=== PATIENT | female | born 1930 | race Caucasian/White ===

== ENCOUNTER 2016-12-13 06:25 | Day surgery (SDC) | payer MEDICARE ==
[~2016-12-13 06:25] MED LIST: Buffered Lidocaine 0.9% SYRIN* 5 ML/SYR SYRINGE INTRADERM ONE; Buffered Lidocaine 0.9% SYRIN* 5 ML/SYR SYRINGE ONE; Famotidine IV* 10 MG/ML 2 ML (20 mg) IV ONE; Famotidine IV* 10 MG/ML 2 ML (20 mg) ONE; Morphine INJ* 2 MG/ML 1 ML SYRINGE IV PRN; fentaNYL* 50 MCG/ML 2 ML VIAL (100 MCG VIAL) IV PRN; oxyCODONE TAB* 5 MG TAB PO PRN
[2016-12-13] MEDS ORDERED: BSS OPTH.SOL* BTL ONE (07:20)
[2016-12-13] MEDS ORDERED: Bacitracin OINTMENT* 1 TUBE ONE (07:20)
[2016-12-13] MEDS ORDERED: ceFAZolin 2 GM PREMIX(*) 2 GM/50 ML BAG IVPB ONE (07:20)
[2016-12-13] MEDS ORDERED: Lidocain 1% EPI 1:100,000 * 30 ML MDV ONE (07:22)
[2016-12-13] MEDS ORDERED: KETAMINE HCL* 50 MG/ML 10 ML VIAL ONE (07:35)
[2016-12-13] MEDS ORDERED: Midazolam* 1 MG/ML 2 ML VIAL (2 MG) ONE (07:35)
[2016-12-13] MEDS ORDERED: fentaNYL* 50 MCG/ML 2 ML VIAL (100 MCG VIAL) ONE (07:35)
[2016-12-13] MEDS ORDERED: Mineral Oil Sterile, TOPICAL* 25 ML BTL ONE (07:39)
[2016-12-13] MEDS ORDERED: Methylene Blue 0.5 %* 50 MG/10 ML AMP IV ONE (08:00)
[2016-12-13] MEDS ORDERED: Metoprolol Tartrate IV* 1 MG/ML 5 ML VIAL ONE (08:09)
[2016-12-13] MEDS ORDERED: Lidocaine 2% PF * 5 ML VIAL ONE (08:09)
[2016-12-13] MEDS ORDERED: Propofol* 10 MG/ML 20 ML BTL IV PUSH ONE (08:09)
[2016-12-13 09:00] VITALS: BP 151/70
== END 2016-12-13 09:23 | disposition home or self-care (01) ==
LOC: OREAST 06:25
PROVIDERS: ATTEND Plastic Surgery
DX: D03.39 Melanoma in situ of other parts of face (principal); I25.10 Atherosclerotic heart disease of native coronary artery without angina pectoris; I25.2 Old myocardial infarction; N18.3 Chronic kidney disease, stage 3 (moderate); E11.9 Type 2 diabetes mellitus without complications; Z79.4 Long term (current) use of insulin; Z85.038 Personal history of other malignant neoplasm of large intestine
CPT/HCPCS: 88305; A9270-GY; J0690; J2250; J2704; J3010

== ENCOUNTER 2017-06-08 14:13 | Emergency (ER) | payer MEDICARE ==
[2017-06-08 15:16] LABS: Hematocrit 37 % (35-47); Hemoglobin 12.4 g/dl (12.0-16.0); Mean Corpuscular HGB Conc 34 g/dl (31-36); Mean Corpuscular Hemoglobin 30 pg (27-31); Mean Corpuscular Volume 90 fL (80-97); Mean Platelet Volume 8 um3 (7.4-10.4); Red Cell Distribution Width 13 % (10.5-15)
--- NOTE | 2017-06-08 15:25 | RAD ---
Indication: Dizziness. Single frontal view of the chest performed at 1509 hours was reviewed. Comparison is made with previous exam dated June 21, 2007. No mediastinal shift is noted. Heart is of normal size and configuration. Lung young appear clear. IMPRESSION: NO ACTIVE CARDIOPULMONARY DISEASE IS NOTED.
[2017-06-08 15:27] LABS: Albumin 3.7 g/dL (3.2-5.2); BUN/Creatinine Ratio 18.9 (8-20); Calcium 9.1 mg/dL (8.6-10.3); EGFR African American 49.1 (>60); EGFR Non-African American 38.2 (>60); Globulin 2.9 g/dL (2-4); Potassium 4.2 mmol/L (3.5-5.0); Total Bilirubin 0.4 mg/dL (0.2-1.0); Total Protein 6.6 g/dL (6.4-8.9)
[2017-06-08] MEDS ORDERED: Meclizine TAB* 12.5 MG PO ONE ×2 (16:32→18:36)
[2017-06-08] MEDS ORDERED: Metoprolol Tartrate TAB* 25 MG PO ONE (16:32)
[2017-06-08 19:15] VITALS: BP 167/66
[2017-06-08 19:37] LABS: Urine Bacteria Absent (Absent); Urine Bilirubin Negative (Negative); Urine Glucose 3+(>=500 mg/dL) (Negative); Urine Nitrite Negative (Negative)
--- NOTE | 2017-06-09 10:15 | ED ---
Hever Mujica Stephanie, scribed for Noe Mancera MD on 06/08/17 at 1645 . Dizziness - HPI Summary HPI Summary: The pt is an 86 y/o F BIBA to the ED with c/o dizziness and HTN symptoms that began at 13:30 today. Pt bent over to pick something up off the floor and got dizzy and nauseated. Dizziness is characterized as head spinning and room spinning. Denies GRIMALDO, recent cold, sinus problems, CP, coughing, sob, recent falls, or hearing problems. - History Of Current Complaint Chief Complaint: EDHypertension Stated Complaint: HTN,DIZZY Time Seen by Provider: 06/08/17 14:42 Hx Obtained From: Patient Onset/Duration: Suddenly Character: Head Spinning, Room Spinning, Dizzy Aggravating Factor(s): Supine To Erect, Change In Head Position Alleviating Factor(s): Rest Associated Signs And Symptoms: Positive: Other: - Negative: GRIMALDO, cold, sinus problems, CP, coughing, sob, recent falls, or hearing problems. - Allergies/Home Medications Allergies/Adverse Reactions: Allergies Allergy/AdvReac Type Severity Reaction Status Date / Time Benzalkonium Chloride Allergy Dizziness Verified 12/13/16 06:48 [From Combigan] Brimonidine [From Combigan] Allergy Dizziness Verified 12/13/16 06:48 Codeine Allergy GI Upset Verified 12/13/16 06:48 Timolol [From Combigan] Allergy Dizziness Verified 12/13/16 06:48 PMH/Surg Hx/FS Hx/Imm Hx Endocrine/Hematology History: Reports: Hx Diabetes - Type I, insulin dependent, diagnosed late , early 1999 Cardiovascular History: Reports: Hx Coronary Artery Disease - listed in select visits, Hx Hypertension - controlled with medication, Other Cardiovascular Problems/Disorders - 2006 ?, bypass surgery History: Reports: Other Problems/Disorders - 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 bypass surgery 2007 approx. Hx Anesthesia Reactions: No Infectious Disease History: No Infectious Disease History: Denies: Traveled Outside the [place] in Last 30 Days - Family History Known Family History: Positive: Unknown - Pt denies knowledge of family history. - Social History Occupation: Retired Lives: With Family - Alcohol Use: Rare Alcohol Amount: only a toast 1-2 x a year, occas. a beer in the summer Hx Substance Use: No Substance Use Type: Reports: None Hx Tobacco Use: No Smoking Status (MU): Never Smoked Tobacco Review of Systems Positive: Other - Negative: recent cold, sinus problems, recent fall. Negative : Fever, Chills Negative: Erythema Positive: Other - Negative: hearing condition. Negative: Sore Throat Negative: Chest Pain Negative: Shortness Of Breath, Cough Positive: Nausea. Negative: Abdominal Pain, Vomiting Negative: dysuria, hematuria Negative: Myalgia, Edema Negative: Rash Neurological: Other - dizziness All Other Systems Reviewed And Are Negative: Yes Physical Exam - Summary Physical Exam Summary: Constitutional: Well-developed, Well-nourished, Alert. (-) Distressed Skin: Warm, Dry HENT: Normocephalic; Atraumatic, Bilateral cerumen impaction Eyes: Conjunctiva normal Neck: Musculoskeletal ROM normal neck. (-) JVD, (-) Stridor, (-) Tracheal deviation Cardio: Rhythm regular, rate normal, Heart sounds normal; Intact distal pulses; The pedal pulses are 2+ and symmetric. Radial pulses are 2+ and symmetric. (-) Murmur Pulmonary/Chest wall: Effort normal. (-) Respiratory distress, (-) Wheezes, (-) Rales Abd: Soft. (-) Tenderness, (-) Distension, (-) Guarding, (-) Rebound Musculoskeletal: (-) Edema Lymph: (-) Cervical adenopathy Neuro: Alert, Oriented x3, Strength normal, Cranial nerves II-XII are grossly intact. (-) Dysmetria, (-) Nystagmus, (-) Ataxia by finger to nose testing, (-) Sensory deficit. inducible vertigo with sitting up from the supine position. [place] Hallpike test is negative. Psych: Mood and affect Normal Triage Information Reviewed: Yes Vital Signs On Initial Exam: Initial Vitals Temp Pulse Resp BP Pulse Ox 98.0 F 60 16 158/72 98 06/08/17 14:15 06/08/17 14:15 06/08/17 14:15 06/08/17 14:15 06/08/17 14:15 Vital Signs Reviewed: Yes - Andrew Coma Scale Coma Scale Total: 15 Diagnostics - Vital Signs Vital Signs Temp Pulse Resp BP Pulse Ox 06/08/17 16:00 57 157/59 92 06/08/17 15:42 57 169/58 99 06/08/17 14:15 98.0 F 60 16 158/72 98 - Laboratory Lab Results: Lab Results 06/08/17 06/08/17 06/08/17 Range/Units 15:00 15:00 15:00 WBC 6.0 (3.5-10.8) 10^3/ul RBC 4.10 (4.0-5.4) 10^6/ul Hgb 12.4 (12.0-16.0) g/dl Hct 37 (35-47) % MCV 90 (80-97) fL MCH 30 (27-31) pg MCHC 34 (31-36) g/dl RDW 13 (10.5-15) % Plt Count 214 (150-450) 10^3/ul MPV 8 (7.4-10.4) um3 Neut % (Auto) 73.0 (38-83) % Lymph % (Auto) 15.5 L (25-47) % Tama % (Auto) 7.1 (1-9) % Eos % (Auto) 2.9 (0-6) % Baso % (Auto) 1.5 (0-2) % Absolute Neuts (auto) 4.3 (1.5-7.7) 10^3/ul Absolute Lymphs (auto) 0.9 L (1.0-4.8) 10^3/ul Absolute Monos (auto) 0.4 (0-0.8) 10^3/ul Absolute Eos (auto) 0.2 (0-0.6) 10^3/ul Absolute Basos (auto) 0.1 (0-0.2) 10^3/ul Absolute Nucleated RBC 0 10^3/ul Nucleated RBC % 0 Sodium 134 (133-145) mmol/L Potassium 4.2 (3.5-5.0) mmol/L Chloride 99 L (101-111) mmol/L Carbon Dioxide 30 (22-32) mmol/L Anion Gap 5 (2-11) mmol/L BUN 25 H (6-24) mg/dL Creatinine 1.32 H (0.51-0.95) mg/dL Est GFR ( Amer) 49.1 (>60) Est GFR (Non-Af Amer) 38.2 (>60) BUN/Creatinine Ratio 18.9 (8-20) Glucose 282 H (70-100) mg/dL Lactic Acid 1.2 (0.5-2.0) mmol/L Calcium 9.1 (8.6-10.3) mg/dL Total Bilirubin 0.40 (0.2-1.0) mg/dL AST 14 (13-39) U/L ALT 11 (7-52) U/L Alkaline Phosphatase 59 (34-104) U/L Troponin I 0.00 (<0.04) ng/mL Total Protein 6.6 (6.4-8.9) g/dL Albumin 3.7 (3.2-5.2) g/dL Globulin 2.9 (2-4) g/dL Albumin/Globulin Ratio 1.3 (1-3) Result Diagrams: 06/08/17 15:00 06/08/17 15:00 Lab Statement: Any lab studies that have been ordered have been reviewed, and results considered in the medical decision making process. - Radiology CXR Xray Interpretation: No Acute Changes Radiology Interpretation Completed By: Radiologist - NO ACTIVE CARDIOPULMONARY DISEASE IS NOTED. - EKG 14:49 EKG Interpretation: 59 BPM. Anterolateral TWI. No stemi. Dizzy Course/Dx - Course Course Of Treatment: Do not expect central vertigo upon inspection. Follow up with ENT doctor in 2-3 days. - Diagnoses Provider Diagnoses: Positional vertigo, Cerumen impaction Discharge - Discharge Plan Condition: Fair Disposition: HOME Discharge Disposition Comment: Follow up with ENT doctor in 2-3 days. Prescriptions: Meclizine TAB* [Antivert 12.5 TAB*] 25 mg PO TID PRN #12 tab PRN Reason: Vertigo Referrals: Niru Bermudez MD [Primary Care Provider] - The documentation as recorded by the Hever swenson Stephanie accurately reflects the service I personally performed and the decisions made by Calderon abel Jerry, MD.
== END 2017-06-08 19:15 | disposition home or self-care (01) ==
LOC: ED 14:13
DX: H81.10 Benign paroxysmal vertigo, unspecified ear (principal); H61.23 Impacted cerumen, bilateral; Z88.5 Allergy status to narcotic agent; Z88.8 Allergy status to other drugs, medicaments and biological substances
CPT/HCPCS: 36415; 71010; 80053; 81003; 81015; 83605; 84484; 85025; 87086; 93005; 99283; A9270-GY

== ENCOUNTER 2018-02-17 10:25 | Emergency (ER) | payer MEDICARE ==
--- NOTE | 2018-02-17 10:52 | ED ---
Dizziness - HPI Summary HPI Summary: The pt is an 87 y/o female presenting to [facility] accompanied by a family member c/ o of dizziness since today. She notes elevated blood glucose (160 at the highest ) but denies nausea, ringing in the ears, CP, SOB, vision changes. The dizziness is aggravated by fast movement. The pt has a Mhx of DM and vision problems in the L eye. She has similar sx about two weeks ago. - History Of Current Complaint Chief Complaint: EDGeneral Stated Complaint: WEAKNESS Time Seen by Provider: 02/17/18 10:40 Hx Obtained From: Patient, Family/Health Lead Onset/Duration: Still Present Timing: Constant Aggravating Factor(s): Other - Fast movement Alleviating Factor(s): Rest Associated Signs And Symptoms: Positive: Negative - ringing in the ears. Negative: Nausea, Chest Pain, SOB, Visual Changes - Allergies/Home Medications Allergies/Adverse Reactions: Allergies Allergy/AdvReac Type Severity Reaction Status Date / Time brimonidine [From Combigan] Allergy Dizziness Verified 02/17/18 11:25 codeine Allergy GI Upset Verified 02/17/18 11:25 timolol [From Combigan] Allergy Dizziness Verified 02/17/18 11:25 PMH/Surg Hx/FS Hx/Imm Hx Previously Healthy: No Endocrine/Hematology History: Reports: Hx Diabetes - Type I, insulin dependent, diagnosed late , early 1999 Cardiovascular History: Reports: Hx Coronary Artery Disease - listed in select visits, Hx Hypertension - controlled with medication, Other Cardiovascular Problems/Disorders - 2007 ?, bypass surgery History: Reports: Other Problems/Disorders - 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 Musculoskeletal History: Denies: Hx Osteoporosis Sensory History: Reports: Hx Cataracts - had surgery bi-lat, unsure of dates Denies: Hx Contacts or Glasses - limited visibility, Hx Hearing Aid Opthamlomology History: Reports: Hx Cataracts - had surgery bi-lat, unsure of dates Denies: Hx Contacts or Glasses - limited visibility - Cancer History Cancer Type, Location and Year: Colon CA1989 - Surgical History Surgery Procedure, Year, and Place: colon CA, late . bypass surgery 2006 approx. Hx Anesthesia Reactions: No Infectious Disease History: No Infectious Disease History: Denies: Traveled Outside the [place] in Last 30 Days - Family History Known Family History: Positive: Unknown - Pt denies knowledge of family history. - Social History Occupation: Retired Lives: With Family Alcohol Use: Rare Alcohol Amount: only a toast 1-2 x a year, occas. a beer in the summer Hx Substance Use: No Substance Use Type: Reports: None Hx Tobacco Use: No Smoking Status (MU): Never Smoked Tobacco Review of Systems Constitutional: Other - Positive: Dizziness Eyes: Negative - Vision changes ENT: Negative - Tinnitus Cardiovascular: Other - Positive: elevated blood glucose (measured at home) Negative: Chest Pain Negative: Shortness Of Breath All Other Systems Reviewed And Are Negative: Yes Physical Exam - Summary Physical Exam Summary: Appearance: The patient is well-nourished in no acute distress and in no acute pain. Skin: The skin is warm and dry and skin color reflects adequate perfusion. HEENT: The head is normocephalic and atraumatic. No nystagmus. The pupils are equal and reactive. The conjunctivae are clear and without drainage. Nares are patent and without drainage. Mouth reveals moist mucous membranes and the throat is without erythema and exudate. The external ears are intact. The ear canals are patent and without drainage. The tympanic membranes are intact. Neck: The neck is supple with full range of motion and non-tender. There are no carotid bruits. There is no neck vein distension. Respiratory: Chest is non-tender. Lungs are clear to auscultation and breath sounds are symmetrical and equal. Cardiovascular: Heart is bradycardic . There is no murmur or rub auscultated. There is no peripheral edema and pulses are symmetrical and equal. Abdomen: The abdomen is soft and non-tender. There are normal bowel sounds heard in all four quadrants and there is no organomegaly palpated. Musculoskeletal: There is no back tenderness noted. Extremities are non-tender with full range of motion. There is good capillary refill. There is no peripheral edema or calf tenderness elicited. Neurological: No focal neuriological fundings. Patient is alert and oriented to person, place and time. The patient has symmetrical motor strength in all four extremities. Cranial nerves are grossly intact. Deep tendon reflexes are symmetrical and equal in all four extremities. Psychiatric: The patient has an appropriate affect and does not exhibit any anxiety or depression. GCS: 15 Triage Information Reviewed: Yes Vital Signs On Initial Exam: Initial Vitals Pulse Pulse Ox 53 95 02/17/18 10:33 02/17/18 10:33 Vital Signs Reviewed: Yes Diagnostics - Vital Signs Vital Signs Temp Pulse Resp BP Pulse Ox 02/17/18 10:36 97.6 F 51 12 206/74 93 02/17/18 10:35 51 192/95 94 02/17/18 10:33 53 95 - Laboratory Result Diagrams: 02/17/18 11:26 02/17/18 11:26 Lab Statement: Any lab studies that have been ordered have been reviewed, and results considered in the medical decision making process. - Radiology CXR Radiology Interpretation Completed By: Radiologist - IMPRESSION: Crowding of the right basilar vessels with no definite active cardiopulmonary disease is noted. The ED physician reviewed this radiology report. - CT Brain CT CT Interpretation Completed By: Radiologist - IMPRESSION: Chronic ischemic White matter change. No intracranial mass or hemorrhage is noted. Postoperative change is noted in both globes. The ED physician reviewed this radiology report. - EKG 11:04 Cardiac Rate: Bradycardia - 49 bpm EKG Interpretation: Unchanged form Dizzy Course/Dx - Course Course Of Treatment: Ms. Jaime presented to the emergency department with a concern for dizziness and high blood pressure. She describes the dizziness as an off-balance sensation when she moves quickly. She has presented previously with these kind of symptoms. Her exam here was unremarkable and labs and CT scan were within normal limits for her. I recommended she follow closely with her PCP as she had improved completely here and was ambulating about without difficulty. - Diagnoses Provider Diagnoses: Dizziness Discharge - Sign-Out/Discharge Documenting (check all that apply): Patient Departure - DC - Discharge Plan Condition: Stable Disposition: HOME Patient Education Materials: Chronic Hypertension (ED) Referrals: Niru Bermudez MD [Primary Care Provider] - 3 Days Additional Instructions: Return to ED for any new or worsening symptoms Follow up with your PCP this week. - Billing Disposition and Condition Condition: STABLE Disposition: Home - Attestation Statements Document Initiated by Scribe: Yes Documenting Scribe: Michelle Naqvi Provider For Whom Scribe is Documenting (Include Credential): Dr. Kelvin Stiles MD Scribe Attestation: Michelle Mujica scribed for Dr. Kelvin Stiles MD on 02/18/18 at 1305. Scribe Documentation Reviewed: Yes Provider Attestation: The documentation as recorded by the scribe, Michelle Naqvi accurately reflects the service I personally performed and the decisions made by me, Dr. Kelvin Stiles MD
[2018-02-17 11:36] LABS: ABS Basophils 0.1 10^3/ul (0-0.2); ABS Eosinophils 0.1 10^3/ul (0-0.6); ABS Monocytes 0.4 10^3/ul (0-0.8); ABS Neutrophils 5.5 10^3/ul (1.5-7.7); ABS Nucleated RBC 0 10^3/ul; Eosinophil % 1.2 % (0-6); Hematocrit 39 % (35-47); Hemoglobin 12.8 g/dl (12.0-16.0); Lymphocyte % 14.5 % (25-47); Mean Corpuscular HGB Conc 33 g/dl (31-36); Mean Corpuscular Hemoglobin 29 pg (27-31); Mean Corpuscular Volume 89 fL (80-97); Mean Platelet Volume 8.4 um3 (7.4-10.4); Nucleated Red Blood Cells % 0; Platelet Count 223 10^3/ul (150-450); Red Blood Count 4.36 10^6/ul (4.00-5.40); Red Cell Distribution Width 13 % (10.5-15); White Blood Count 7.1 10^3/ul (3.5-10.8)
--- NOTE | 2018-02-17 11:36 | RAD ---
Indication: Dizziness. CT of the brain performed without IV contrast. Ventricular structures are midline. Central and cortical atrophy is noted. There is periventricular lucency consistent with chronic ischemic White matter change. Mucosal thickening of the sphenoid sinuses is noted. Prosthesis is noted in both globes. Mastoid air cells and paranasal sinuses are otherwise unremarkable. IMPRESSION: Chronic ischemic White matter change. No intracranial mass or hemorrhage is noted. Postoperative change is noted in both globes.
--- NOTE | 2018-02-17 11:38 | RAD ---
Indication: Dizziness. 2 views of the chest are reviewed and compared to previous exam dated June 08, 2017. No mediastinal shift is noted. The heart is at the upper limits of normal in size. Lung young demonstrate some crowding of the markings in the right lung base. This is similar to that seen on previous exam. Patient is status post transsternal thoracotomy. IMPRESSION: Crowding of the right basilar vessels with no definite active cardiopulmonary disease is noted.
[2018-02-17 11:44] LABS: INR 0.87 (0.77-1.02)
[2018-02-17 11:53] LABS: EGFR Non-African American 35.3 (>60)
[2018-02-17 12:51] LABS: Urine Appearance Clear; Urine Blood Negative (Negative); Urine Color Yellow; Urine Ketones Negative (Negative); Urine Protein 1+(30 mg/dL) (Negative); Urine Red Blood Cell Absent (Absent); Urine Specific Gravity 1.011 (1.010-1.030); Urine Urobilinogen Negative (Negative); Urine White Blood Cell Trace(0-5/hpf) (Absent)
[2018-02-17 14:14] VITALS: BP 171/73
== END 2018-02-17 14:18 | disposition home or self-care (01) ==
LOC: ED 10:25
DX: R42 Dizziness and giddiness (principal); I10 Essential (primary) hypertension; E10.9 Type 1 diabetes mellitus without complications; Z79.4 Long term (current) use of insulin; I25.10 Atherosclerotic heart disease of native coronary artery without angina pectoris
CPT/HCPCS: 36415; 70450; 71046; 80053; 81003; 81015; 83605; 83735; 84443; 84484; 85025; 85610; 87086; 93005; 99284

== ENCOUNTER 2018-05-10 12:35 | Inpatient (IN) | payer MEDICARE ==
[2018-05-10] MEDS ORDERED: NS 0.9% 1000 ML* 1,000 ML IV ONE (12:36)
--- NOTE | 2018-05-10 12:38 | ED ---
Neurological HPI - HPI Summary HPI Summary: Level 5 caveat: Unable to obtain complete HPI due to Dementia. The pt is an 87 y/o female brought in by her son to [facility] c/o weakness. Her son last saw her 2 hours TELEPHONE RECORDER and she was fine. Later, her other son found her unresponsive in bed and called the ambulance. Her mobile home lot utility worker confirmed that the pt took her insulin, breakfast and required medications normally today morning.EMS found the pt diaphoretic and unresponsive with slurred speech. Her BG was 45 mg/dL en route for which she was given D10 to mild improvement. Her heart rate was bradycardic ranging between the high 40s and low 50s. PMHx: Dementia, chronic IDDM and cardiac problems (10 years ago). Home Medications Medication Instructions Recorded Confirmed Type Aspirin 81 mg CHEW TAB* [Aspirin 81 mg PO QAM 09/09/12 02/17/18 History Low Dose TAB*] Insulin Isophane (Human) [Humulin 16 units SUBCUT BID 09/09/12 02/17/18 History N] Insulin Regular (Human) [Humulin R] 10 units SUBCUT BID 09/09/12 02/17/18 History Metoprolol Tartrate TAB* 25 mg PO BID 09/09/12 02/17/18 History [Lopressor TAB*] Multiple Vitamins W/ Minerals 1 tab PO QAM 09/09/12 02/17/18 History [Centrum Silver] Potassium Chloride [Klor-Con 8] 8 meq PO QAM 09/09/12 02/17/18 History Simvastatin TAB(NF) [Zocor 20 MG 40 mg PO QPM 09/09/12 02/17/18 History (NF)] Triamterene/HCTZ 37.5-25 MG* 1 cap PO QAM 09/09/12 02/17/18 History [Dyazide CAP*] Lisinopril TAB* [Prinivil TAB*] 10 mg PO QAM 12/07/16 02/17/18 History - History of Current Complaint Stated Complaint: CODE DUKE Time Seen by Provider: 05/10/18 12:36 Last Known Well Date: 05/10/2018- 2 hours TELEPHONE RECORDER Hx Obtained From: Patient, Family/Pattern Room Attendant - Son, EMS Hx From Patient Unobtainable Due To: Dementia Onset/Duration: Sudden Onset, Still Present Associated Signs and Symptoms: Positive: Confusion, Weakness - Allergy/Home Medications Allergies/Adverse Reactions: Allergies Allergy/AdvReac Type Severity Reaction Status Date / Time brimonidine [From Combigan] Allergy Dizziness Verified 02/17/18 11:25 codeine Allergy GI Upset Verified 02/17/18 11:25 hydralazine Allergy Difficulty Verified 05/10/18 15:04 Breathing timolol [From Combigan] Allergy Dizziness Verified 02/17/18 11:25 Home Medications: Home Medications Insulin NPH(*) 10 units SUBCUT BEDTIME 05/10/18 [History Confirmed 05/10/18] Insulin Regular, Human 5 units SUBCUT BEDTIME 05/10/18 [History Confirmed ] PMH/Surg Hx/FS Hx/Imm Hx Previously Healthy: No - Level 5 caveat: Unable to obtain complete PMHx due to Dementia. 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 bypass surgery 2006 approx. Hx Anesthesia Reactions: No Infectious Disease History: No - Family History Known Family History: Positive: Unknown - Pt denies knowledge of family history. - Social History Occupation: Retired Lives: With Family Alcohol Use: Rare Alcohol Amount: only a toast 1-2 x a year, occas. a beer in the summer Hx Substance Use: No Substance Use Type: Reports: None Hx Tobacco Use: No Smoking Status (MU): Never Smoked Tobacco Review of Systems - ROS Summary Review of Systems Summary: Level 5 caveat: Unable to obtain complete ROS due to Dementia. Constitutional: Other - Positive: Hypoglycemia, Unresponsiveness, Slurred speech Positive: Skin Diaphoresis Cardiovascular: Other - Positive: Bradycardia Positive: Weakness All Other Systems Reviewed And Are Negative: No Physical Exam - Summary Physical Exam Summary: Level 5 caveat: Unabe to obtain complete PE due to dementia Appearance: Well appearing, no pain distress Skin: warm, dry mucous membranes, reflects adequate perfusion Head/face: normal Eyes: EOMI, ENT: normal Neck: supple, non-tender Respiratory: CTA, breath sounds present Cardiovascular: bradycardic, pulses symmetrical Abdomen: non-tender, soft Bowel: present Musculoskeletal: normal, strength/ROM intact Neuro: normal, sensory motor intact, alert and confused GCS:14 Triage Information Reviewed: Yes Vital Signs On Initial Exam: Temp Pulse Resp BP Pulse Ox 95.8 F 37 16 179/67 94 05/10/18 12:59 05/10/18 12:59 05/10/18 12:59 05/10/18 12:59 05/10/18 12:59 Completion Of Physical Exam Limited Due To: Dementia Diagnostics - Laboratory Result Diagrams: 05/10/18 12:52 05/10/18 12:52 Lab Statement: Any lab studies that have been ordered have been reviewed, and results considered in the medical decision making process. - Radiology CXR Radiology Interpretation Completed By: Radiologist - IMPRESSION: DISCOID ATELECTASIS IN THE LEFT MIDLUNG FIELD. PATIENT IS STATUS POST CHANGED STERNAL THORACOTOMY. ED physician reviewed this radiology report. - CT Brain CT CT Interpretation Completed By: Radiologist - IMPRESSION: No intracranial mass or hemorrhage is noted. No other high or low density lesions are identified. ED physician reviewed this radiology report. - EKG 12:52 Cardiac Rate: Bradycardia - 38 bpm NIH Scale - NIH Scale Level of Consciousness: Alert/Keenly Responsive Ask Patient the Month and His/Her Age: Both Correct Ask Pt to Open/Close Eyes and Eligibility Consultant/Release Non-Paretic Hand: Both Correctly Best Gaze (Only Horizontal Eye Movement): Normal Visual Field Testing: No Visual Loss Facial Paresis-Pt to Smile & Close Eyes or Grimace Symmetry: Normal/Symmetrical Motor Function - Right Arm: No Drift-Holds 10 Seconds Motor Function - Left Arm: No Drift-Holds 10 Seconds Motor Function - Right Leg: No Drift-Holds 10 Seconds Motor Function - Left Leg: No Drift-Holds 10 Seconds Limb Ataxia-Must be out of Proportion to Weakness Present: Absent Sensory (Use Pinprick to Test Arms/Legs/Trunk/Face): Normal Best Language (Describe Picture, Name Items): No Aphasia Dysarthria (Read Several Words): Normal Extinction and Inattention: No Abnormality Total Score: 0 Course/Dx - Course Course Of Treatment: An 87 year-old demented F is brought in by ambulance to the ED with a CC of weakness. She was last seen at baseline 2 hours TELEPHONE RECORDER. EMS found the pt diaphoretic and unresponsive with slurred speech. Her BG was 45 mg/ dL en route for which she was given D10 to mild improvement. Her heart rate was bradycardic ranging between the high 40s and low 50s. A physical exam revealed alertness, confusion, bradycardia and dry mucous membranes. A brain CT is unremarkable. A CXR reveals discoid atelectasis in the L mid lung field. Patient is post changed s/p sternal thoracotomy. An EKG reveals bradycardia. In the ED course, pt was given D5w 1000ml IV, Dextrose 50% 25 gm IV and N.s 0.9% 1000 ml IV which improved the symptoms. I discussed the care of the patient with Dr. Quiana Blair who recommended admitting the pt. Dr. Hay MD- hospitalist agreed to admit the pt. Patient will be admitted with a final Dx of sycopal episode, hypoglycemia, sick sinus syndrome, chronic renal failure, legally blind and dementia. Pt is agreeable with this plan. - Differential Dx Differential Diagnoses Neuro: Positive: Benign Paroxysmal Positional Vertigo, Dysrhythmia, Intracranial Bleed, Medication Reaction, Transient Ischemic Attack , Vasovagal Reaction - Diagnoses Provider Diagnoses: Syncopal episodes, Hypoglycemia, Sick sinus syndrome, Chronic renal failure, Legally blind, Dementia During the Visit The Following Alert/Code Occurred: Code Celaya - 12:19- Called ten minutes ETA. - Physician Notifications Discussed Care Of Patient With: Quiana Blair - Qual Research Manager Time Discussed With Above Provider: 13:20 Instructed by Provider To: Admit As Inpatient - 13:50- Dr. Guido agreed to admit the patient. - Critical Care Time Critical Care Time: 30-74 min - 60 minutes Discharge - Sign-Out/Discharge Documenting (check all that apply): Patient Departure - Admit - Discharge Plan Condition: Stable Disposition: ADMITTED TO [facility] Referrals: Niru Bermudez MD [Primary Care Provider] - - Billing Disposition and Condition Condition: STABLE Disposition: Admitted to [facility] - Attestation Statements Document Initiated by Marcinibdaron: Yes Documenting Scribe: Michelle Naqvi Provider For Whom Travis is Documenting (Include Credential): Dr. Jesu Hoang MD Scribe Attestation: IMichelle , scribed for Dr. Jesu Hoang MD on 05/10/18 at 1509. Scribe Documentation Reviewed: Yes Provider Attestation: The documentation as recorded by the Michelle swenson accurately reflects the service I personally performed and the decisions made by me, Dr. Jesu Hoang MD
[2018-05-10] MEDS ORDERED: Dextrose 50% Syringe 50 ML* 25 GM/50 ML SYRINGE ONE (12:51)
[2018-05-10] MEDS ORDERED: Dextrose 50% Syringe 50 ML* 25 GM/50 ML SYRINGE IV PUSH ONE (12:53)
[2018-05-10] MEDS ORDERED: D5W 1/2 NS 1000 ML BAG* 1,000 ML IV SCH (13:00)
[2018-05-10 13:08] LABS: ABS Basophils 0.1 10^3/ul (0-0.2); ABS Eosinophils 0.3 10^3/ul (0-0.6); ABS Lymphocytes 1.1 10^3/ul (1.0-4.8); ABS Monocytes 0.6 10^3/ul (0-0.8); ABS Neutrophils 4.8 10^3/ul (1.5-7.7); ABS Nucleated RBC 0 10^3/ul; Hematocrit 40 % (35-47); Hemoglobin 13.2 g/dl (12.0-16.0); Lymphocyte % 16.4 % (25-47); Mean Corpuscular HGB Conc 33 g/dl (31-36); Mean Corpuscular Hemoglobin 30 pg (27-31); Mean Corpuscular Volume 89 fL (80-97); Mean Platelet Volume 8.6 fL (7.4-10.4); Nucleated Red Blood Cells % 0.1; Platelet Count 222 10^3/ul (150-450); Red Blood Count 4.48 10^6/ul (4.00-5.40); Red Cell Distribution Width 13 % (10.5-15)
[2018-05-10 13:25] LABS: INR 0.86 (0.77-1.02)
[2018-05-10 13:26] LABS: EGFR Non-African American 33.4 (>60)
[2018-05-10] MEDS ORDERED: Dextrose 50% Syringe 50 ML* 25 GM/50 ML SYRINGE IV PUSH PRN (14:18)
[2018-05-10] MEDS ORDERED: Acetaminophen TAB* 325 MG PO PRN (14:18)
[2018-05-10] MEDS ORDERED: Ondansetron INJ* 2 MG/ML VIAL IV PRN (14:18)
[2018-05-10] MEDS ORDERED: hydrALAZINE IV* 20 MG/ML VIAL IV SLOW PU PRN (14:18)
[2018-05-10] MEDS ORDERED: hydrALAZINE IV* 20 MG/ML VIAL ONE (14:25)
[2018-05-10] MEDS ORDERED: Nitroglycerin 2% OINT* 1 GM PAK TOPICAL ONE (14:43)
[2018-05-10] MEDS ORDERED: Aspirin 81 mg CHEW TAB* 81 MG TAB.CHEW PO ONE (14:53)
[2018-05-10] MEDS ORDERED: Heparin DRIP 25,000 UNITS(*) 25,000 UNITS/500 ML BAG IV SCH (15:15)
[2018-05-10] MEDS ORDERED: Nitroglycerin TAB 0.4 MG* 0.4 MG TAB SL ONE (15:21)
[2018-05-10] MEDS ORDERED: Heparin DRIP 25,000 UNITS(*) 25,000 UNITS/500 ML BAG ONE (15:23)
[2018-05-10] MEDS ORDERED: nitroGLYCERIN DRIP* 25,000 MCG/250 ML BTL ONE (15:23)
[2018-05-10] MEDS ORDERED: Nitroglycerin TAB 0.4 MG* 0.4 MG TAB ONE (15:23)
[2018-05-10] MEDS ORDERED: nitroGLYCERIN DRIP* 25,000 MCG/250 ML BTL IV SCH (16:00)
[2018-05-10] MEDS: Insulin LISPRO* 1 UNITS UNIT SUBCUT SCH ×2 (17:08→20:24)
[2018-05-10] MEDS: Atorvastatin* 20 MG TAB PO SCH (17:33)
--- NOTE | 2018-05-10 18:37 | CONS ---
CC: Dr. Niru Bermudez; Dr. Torres Little; Hospitalist CONSULTATION REPORT: DATE OF CONSULT: 05/10/18 REASON FOR CONSULT: Syncope. CHIEF COMPLAINT: Loss of consciousness. HISTORY OF PRESENT ILLNESS: Ms. Jaime is an 87-year-old woman with history of bypass surgery, fol lowed in the past by Dr. Little and she also has type 2 diabetes. The patient was examined in the pres ence of her daughter, who answered many questions. The patient was in her usual state of health. Her daughter talked to her at 11:30 this morning and s aid her mother sounded fine. At 11:45, the patient's son found her unconscious. The patient has no recollection of the event. analytical sciences director were called and her sugars were extremely low in the 60s. A 12-lead ECG on arrival to the emergency room showed sinus bradycardia and dropped sinus beats. The patient did not recollect similar events, but the patient's daughter said she has had some episod es of feeling weak in the past. The patient denies any new medications or missing any medications. She is on metoprolol 25 mg b.i.d. PAST MEDICAL HISTORY: The patient has a past medical history of: 1. Coronary artery disease with bypass. 2. Diabetes type 2. 3. Chronic renal insufficiency, stage 3. 4. Hypertension. 6. Colon cancer. 7. Malignant melanoma in situ. PAST SURGICAL HISTORY: Includes: 1. Bypass surgery, 1997. 2. Colectomy, 1998. 3. Melanoma removal, right cheek. 4. Cataract surgery, 2002. MEDICATIONS: Outpatient medications included: 1. Metoprolol 25 mg b.i.d. 2. Lisinopril 10 mg a day. 3. Aspirin 81 mg a day. 4. NPH insulin. 5. Humulin insulin. 6. Triamterene/hydrochlorothiazide 37.5/25 one tab daily. 7. Zocor 40 mg a day. 8. Potassium 8 mEq a day. 9. MultiVites. ALLERGIES: Include COMBIGAN (dizziness); CODEINE, GI; TIMOLOL, dizziness. FAMILY HISTORY: Mother lived into her late 90s. Father at age 71 of a heart attack. SOCIAL HISTORY: The patient lives independently with supportive daughter and son in the area. They have cameras in her house. Her daughter says she is pretty independent. She is a nonsmoker. No his tory of alcohol abuse. REVIEW OF SYSTEMS: Negative for recent fevers, chills, sweats. She has occasional dry cough. No he maturia or dysuria. No change in bowel or bladder habits, but has some chronic diarrhea/loose stools . The patient denies chest pain, pressure, heaviness, exercise intolerance, orthopnea, or PND. She was [facility] for [facility] All other review of systems was unremarkable. PHYSICAL EXAM: The patient is 5 feet 2 inches, weighs 145 pounds with a BMI of 26.5. Vital Signs: Blood pressure 179/67, pulse is 37, respiratory rate is 16, oxygen saturation 94% on room air, temper ature 95.8 degrees Fahrenheit. General Appearance: Elderly woman, lying in a gurney at 40 degrees, appears comfortable. Psychologically, pleasant and cooperative. Neurologically, awake, alert oriente d to person and place. Speech is articulate. Comprehension is good. She follows commands. Gait no t checked. HEENT: Milky eyes. I did not ask if she is blind, but vision is clearly poor from behav ior. Mucous membranes were moist. Neck without thyromegaly or lymphadenopathy appreciated. Breath sounds were clear with good effort. No wheezes, rales, or rhonchi. Coronary: S1, S2, regular witho ut murmurs or rubs. Abdomen: Overweight. Active bowel sounds. Soft, nontender. No hepatosplenome diana or masses. Lower extremities were warm and free of edema. DIAGNOSTIC STUDIES/LAB DATA: White count 7.0, hematocrit 40, platelets 222. INR 0.86, PTT 26.2. So dium 138, potassium 4.3, chloride 107, bicarb 29, BUN 34, creatinine 1.5, glucose pending. Total cho lesterol 178, triglycerides 129, LDL cholesterol 87, HDL cholesterol 65. Troponin #1 0.03. Lactic a estelle 0.7. A 12-lead ECG today shows sinus bradycardia, overall rate 38 beats a minute. She does have some drop ped sinus beats with a junctional escape. Corrected QT is 438 milliseconds, QRS axis +15, normal AV and IV conduction times. Diffuse ST and T- wave flattening, nonspecific. Compared with her EKG, 09/01 with a presentation with weakness, her heart rate has decreased from 49 beats a minute and at t hat time she had inverted T-waves across the precordial leads V1 through V5 and the morphology has ch anged significantly. Going back to May of 2017, inverted T- waves were seen and heart rate was 59 beats a minute. Brain CT showed no intracranial mass or hematoma. Chest x-ray obtained. There is some perivascular cuffing, probable mild congestive heart failure on my exam. IMPRESSION AND PLAN: In summary, Ms. Jaime is an 87-year-old woman admitted with a syncopal episo de with low sugars when the analytical sciences director found her, but also evidence of sick sinus syndrome with sinus gudelia cardia, dropped sinus beats and evidence of serial EKGs of progressive decline in her heart rate. The differential of the patient's syncope would be hypoglycemia or sick sinus syndrome or combination . The patient additionally has a history of coronary artery disease, 20 years status post multivessel b ypass surgery and had some risk for ischemia. I recommend holding the patient's metoprolol. I think this patient would benefit from a pacemaker im [place]. I did discuss it with the patient and her daughter and they are amenable. Tentatively, we will plan on a pacemaker implantation on Saturday with Dr. Little unless there is marked improvement off the beta-lucy and there is no need to resume the beta-lucy. The intolerance to eye drops w ith beta-blockers is also very likely related to sick sinus syndrome and would support pacemaker impl antation. For the patient's atherosclerotic heart disease and presentation with syncope, I would recommend gett ing an updated echo tomorrow, serial EKGs and troponins. Management of diabetes, renal insufficiency and other medical issues will be deferred to the hospital ist. [id number]/[facility] #: [id number]
[2018-05-10 19:13] LABS: Urine Appearance Cloudy; Urine Blood Negative (Negative); Urine Color Yellow; Urine Ketones Negative (Negative); Urine Protein 1+(30 mg/dL) (Negative); Urine Red Blood Cell Trace(0-2/hpf) (Absent); Urine Specific Gravity 1.012 (1.010-1.030); Urine Urobilinogen Negative (Negative); Urine White Blood Cell 2+(11-20/hpf) (Absent)
--- NOTE | 2018-05-10 19:35 | HP ---
ADDENDUM NOW INCLUDED ON THIS REPORT CC: Niru Bermudez MD; Dr. Blair; Dr. Little * HISTORY AND PHYSICAL: DATE OF ADMISSION: 05/10/18 PRIMARY CARE PROVIDER: Niru eBrmudez MD CONSULTING CRUISE DIRECTOR: Dr. Blair. ATTENDING PHYSICIAN WHILE IN THE HOSPITAL: Carlyle Guido MD * (report dictated by Cheikh Rincon NP). CHIEF COMPLAINT: Altered mental status. HISTORY OF PRESENT ILLNESS: Ms. 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 She came into the ED today. She does not really recall this, though what was told to me by the patient's daughter is that around 11:30 today she was acting her baseline, she was doing well, she just had gotten off the phone with her, 10 minutes later the patient's son was going to pick the patient up to go shopping and when he got there it was noted that she was on the bed, she was having garbled speech, not making any sense. She had taken all of her insulin this morning and she has an aide overnight that helps her. When they got there, he noticed that she was confused, he thought maybe her sugar was low, he gave her candies, they called EMS. En route, her sugar was 45, when she arrived here it was 49. She was given dextrose and started to take a p.o. diet and she started to improve, she was getting back to her baseline. While here, it was noted that she did have bradycardia pretty substantially in the 30s and at times having missed beats. Because of this, we were asked to evaluate. The patient does not really recall what happened today. She does remember speaking to her daughter at around 11:30. She remembers her other son was at the house helping her earlier this morning. She does remember ending up here in the hospital. She does not recall the EMS getting her at home. The patient denied having any chest pain or shortness of breath. To her knowledge, she did not pass out as she can remember. The son that did find her stated that she was conscious, but again very confused. There was concern initially for Nestor Gonzales for stroke. Nestor Gonzales was called, but after finding the hypoglycemia and the bradycardia, we were asked to evaluate for admission. There have been no reports of change in medications. There have been no reports of fevers, chills, nausea, vomiting or diarrhea or any, again shortness of breath, orthopnea, or nocturnal dyspnea. PAST MEDICAL HISTORY: Significant for: 1. Diabetes. 2. CAD. 3. Hypertension. 4. Hyperlipidemia. 5. Colon cancer. 6. She is legally blind, particularly in her left eye. She has a history of diabetic retinopathy. PAST SURGICAL HISTORY: She has had quadruple bypass. HOME MEDICATIONS: Include: 1. Aspirin 81 mg daily. 2. Insulin NPH 10 units at bedtime. 3. Humulin N 16 units in the morning. 4. Insulin regular 5 units at bedtime. 5. Lopressor 25 mg p.o. b.i.d. 6. Lisinopril 10 mg daily. 7. Humulin R 10 units subcu b.i.d. 8. Dyazide 1 capsule p.o. daily. 9. Simvastatin 40 mg p.o. q.p.m. 10. Klor-Con 8 mEq p.o. daily. 11. Multivitamin 1 tablet p.o. daily. ALLERGIES TO MEDICATIONS: Include CODEINE, TIMOLOL, and BRIMONIDINE. FAMILY HISTORY: She said that her mother lived to the age of 97 and of old age. Father was also a diabetic. SOCIAL HISTORY: She does not smoke. She does not drink. She does live alone, but has aide services at night. Surrogate decision makers are her daughter, Nita and son, Osman. REVIEW OF SYSTEMS: There is no documented fever. She denied having any significant weight change. There is no double vision. She denied having any ear discharge. There is no rhinorrhea. There is no sore throat. No thyroid enlargement. She denies having any chest pain. There is no orthopnea. There is no nocturnal dyspnea. There was no abdominal pain. There was no nausea, no vomiting. No dysuria or frequency. No seizure. Again, there was a question of loss of consciousness. Review of 14 systems was completed, all others negative. PHYSICAL EXAMINATION GENERAL: At this time, Ms. Jaime is an 87-year-old female patient. She is sitting in the ED stretcher. She does not appear to be in any acute distress. VITAL SIGNS: When she presented, blood pressure 176/63 with a pulse of 41, respirations 20, O2 sat 93%, temperature 95.8. Her blood pressure now is 199/ 72. HEENT: Head: Atraumatic and normocephalic. Eyes: Sclerae anicteric and not pale. Throat: Oral mucosa appears to be dry. No oropharyngeal erythema. NECK: Supple. LUNGS: Clear to auscultation. No wheezes, rales, or rhonchi. HEART: Sounds S1, S2. She was again noted to be bradycardic. No murmurs, rubs , or gallops. ABDOMEN: Soft, flat, nontender. Bowel sounds were present. EXTREMITIES: Pulses were 2+ throughout. She is moving all 4 extremities with 5 /5 strength. NEUROLOGIC: She is awake. She is alert. She is oriented x3. Her speech to me was clear. Tongue was midline. Nsnk-yr-kecy was intact bilaterally. I did not do btxpnh-nl-[id number] test, EOMs because of the fact that she is blind, but sensation was intact to the face. She had no facial drooping. [employer] were equal and again no gross focal deficits were found. SKIN: Intact. DIAGNOSTIC STUDIES/LAB DATA: WBC of 7.0, RBC of 4.48, hemoglobin of 13.2, hematocrit of 40, platelet count of 322,000. The INR was 0.86, PTT of 26.2. Sodium was 138; potassium was 4.3; chloride of 107; bicarb 29; BUN was 34; creatinine was 1.48, this is right near her baseline; glucose on laboratory was 49, it is now 119; the lactic was 0.7; the calcium was 9.2. Total bili was 0.4 , AST 16, ALT 13, alk phos 58. Her troponin was 0.03. Albumin was 3.8. She did have a brain CT obtained today, which showed no intracranial mass or hemorrhages noted. No other high or low density lesions are identified. Chest x-ray today: It is a portable x-ray, the patient is rotated. She has no infiltrates noted. She appears to have hyperinflation. No pleural effusions. She appeared to have cardiomegaly, but again, she is rotated. Radiology read this as discoid atelectasis in the left middle lung. The patient is status post sternal thoracotomy. She had an EKG obtained today as well, which does show a bradycardia, appears to be sinus, but she does have QRS without P wave at times and then dropped beat , with a rate of 38. She had no ST elevation. It was reviewed with the previous EKG, this is similar with the exception of the bradycardia now and again noted the dropped beat. Old medical records were reviewed. ASSESSMENT AND PLAN: Ms. Jaime is an 87-year-old female patient coming in with altered mental status, on evaluation here in the ED noted to be bradycardic , in addition to this noted to be hypoglycemic. She will be admitted under inpatient status for: 1. Bradycardia. At this point, the patient was evaluated by Cardiology, they have recommended pacemaker, but in the short term, we are going to place the patient in the ICU, holding her beta-lucy for now. She is hemodynamically stable. Her heart rate now is right around 41. I am checking a mag and a TSH as well. We will hold her beta-lucy. We will hold rate controlling agents. Place her in the ICU with pacer pads near bedside and we will continue to follow her closely with a plan for possible pacemaker on Saturday. 2. Hypoglycemia. I do note that she is on several different insulins. She is on insulin NPH and also regular insulin in the morning. I have held these and I have put her on, for the time being, a rapid acting insulin on sliding scale and we will continue to follow. She is on D5 half-normal and I have ordered fingersticks every 4 hours and there is also p.r.n. dextrose. She is now eating as well, so we will keep an eye on her sugars. 3. Diabetes. Again, lispro sliding scale has been ordered. 4. Coronary artery disease. Continue her aspirin and statin therapy, hold beta - lucy. 5. Hypertension with hypertensive urgency. Blood pressure down here is 199/ 70. I did order p.r.n. hydralazine. We will continue her p.o. meds. We can consider adding Norvasc, but again we will stay away from rate controlling agents. 6. Hyperlipidemia. Continue statin therapy. 7. History of colon cancer. Follow up with her PCP. 8. History of diabetic retinopathy. Again, we will strive for better insulin control. I am going to check an A1c. 9. DVT prophylaxis: I will place her on heparin subcu. 10. Code status: Full code. 11. Fluids, electrolytes, and nutrition: She can have a consistent carb diet. TIME SPENT: Time spent on the admission was 60 minutes, greater than half of the time was spent [id number] with the patient obtaining my history and physical, other half of the time was spent going over the plan of care with the patient and implementing plan of care. I did discuss the plan of care with my attending, Dr. Guido; he is in agreement. CHEIKH RINCON NP HISTORY AND PHYSICAL: DATE OF ADMISSION: 05/10/18. ADDENDUM: Please note, the patient did have an episode of chest discomfort. She was given hydralazine and about 10 to 15 minutes later, she described having a chest pressure and feeling short of breath. An EKG obtained, it did not show signs of ischemia. It did show a bradycardia and it was sinus. It also was noted on telemetry while she was down here, she was having pauses, which did appear to be atrial fibrillation. I did touch base with Dr. Bliar, who recommends a heparin drip, which I will start. The patient will be given nitrates for the chest pressure, although the chest pressure is now resolving. Her biggest complaint is dyspnea. She did have a chest x-ray, which did not show any pulmonary edema. I will stop her IV fluids for the time being. For her blood pressure, again it was noted that after the hydralazine, she went up to 208/89. I will start nitrates, discontinue the hydralazine. We will start her on nitro drip, place her in the ICU to monitor her closely and we will continue to follow. I suspect the discomfort that she has been having could be reaction to the hydralazine. If it persists, we could consider Lasix and further imaging, such as CTA of the chest, although the chest pressure has gone now. She just says that she feels dyspneic, so we will continue to monitor her closely. I did touch base with my attending, who has evaluated and he was in agreement with the current medical plan at this point. CHEIKH RINCON NP [id number]/[facility] #: [id number]/[facility] #: [id number] [facility]
--- NOTE | 2018-05-10 20:07 | HP ---
HISTORY AND PHYSICAL: DATE OF ADMISSION: 05/10/18. ADDENDUM: Please note, the patient did have an episode of chest discomfort. She was given hydralazine and about 10 to 15 minutes later, she described having a chest pressure and feeling short of breath. An EKG obtained, it did not show signs of ischemia. It did show a bradycardia and it was sinus. It also was noted on telemetry while she was down here, she was having pauses, which did appear to be atrial fibrillation. I did touch base with Dr. Blair, who recommends a heparin drip, which I will start. The patient will be given nitrates for the chest pressure, although the chest pressure is now resolving. Her biggest complaint is dyspnea. She did have a chest x-ray, which did not show any pulmonary edema. I will stop her IV fluids for the time being. For her blood pressure, again it was noted that after the hydralazine, she went up to 208/89. I will start nitrates, discontinue the hydralazine. We will start her on nitro drip, place her in the ICU to monitor her closely and we will continue to follow. I suspect the discomfort that she has been having could be reaction to the hydralazine. If it persists, we could consider Lasix and further imaging, such as CTA of the chest, although the chest pressure has gone now. She just says that she feels dyspneic, so we will continue to monitor her closely. I did touch base with my attending, who has evaluated and he was in agreement with the current medical plan at this point. TIFFANY LEE NP [id number]/[facility] #: [id number] [place]
[2018-05-10] MEDS ORDERED: Heparin VIAL(*) 5000 UNITS/ML VIAL (FIVE THOUSAND) SUBCUT SCH (22:00)
[2018-05-11 04:40] LABS: ABS Basophils 0.1 10^3/ul (0-0.2); ABS Eosinophils 0.2 10^3/ul (0-0.6); ABS Lymphocytes 1.5 10^3/ul (1.0-4.8); ABS Monocytes 0.6 10^3/ul (0-0.8); ABS Neutrophils 5.3 10^3/ul (1.5-7.7); ABS Nucleated RBC 0 10^3/ul; Eosinophil % 2.8 % (0-6); Hematocrit 35 % (35-47); Hemoglobin 11.3 g/dl (12.0-16.0); Lymphocyte % 19.5 % (25-47); Mean Corpuscular HGB Conc 32 g/dl (31-36); Mean Corpuscular Hemoglobin 29 pg (27-31); Mean Corpuscular Volume 89 fL (80-97); Mean Platelet Volume 8.9 fL (7.4-10.4); Nucleated Red Blood Cells % 0; Platelet Count 206 10^3/ul (150-450); Red Blood Count 3.91 10^6/ul (4.00-5.40); Red Cell Distribution Width 14 % (10.5-15); White Blood Count 7.8 10^3/ul (3.5-10.8)
[2018-05-11 04:50] LABS: INR 0.91 (0.77-1.02)
[2018-05-11 04:57] LABS: EGFR Non-African American 36.8 (>60)
[2018-05-11] MEDS ORDERED: ceFAZolin 1 GM/10 ML flush(*) SYRINGE for pocket flush (cardiology) FLUSH ONE (08:00)
--- NOTE | 2018-05-11 08:14 | PN ---
Subjective Date of Service: 05/11/18 Interval History: Ms. Carney feels well this morning. She slept well overnight and is anxious to go home. She is somewhat unsure about the events yesterday, but remembers seeing her son at home and then coming to the hospital. She could not verbalize why she was in the hospital. She does not recall seeing cardiology yesterday. She does not recall ever having problems with her heart rate in the past. 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 She does not recall having any chest pain/pressure or SOB yesterday. She reports that she has family or aides that come in to check her glucose and give her insulin, so she is unsure why her glucose was low. She denies missing any meals or having a change in appetite. She denies CP, SOB, N/V/D, dizziness, headache. Per nursing, nitro drip was stopped last night. HR and BP have been stable since. Family History: Unchanged from Admission Social History: Unchanged from Admission Past Medical History: Unchanged from Admission Objective Active Medications: Acetaminophen (Tylenol Tab*) 650 mg PO Q4H PRN FEVER/PAIN Aspirin (Aspirin 81 Mg Chew Tab*) 81 mg PO QAM [facility] Atorvastatin Calcium (Lipitor*) 20 mg PO QPM [facility] Dextrose (D50w Syringe 50 Ml*) 12.5 gm IV PUSH .FOR FS < 60 - SS PRN FS < 60 Nitroglycerin/Dextrose (Nitroglycerin Drip*) 25,000 mcg in 250 mls @ 3 mls/hr IV .(Initial Rate) [facility]; Protocol Heparin Sodium/Dextrose (Heparin Drip 25,000 Units(*)) 25,000 units in 500 mls @ 0 mls/hr IV PER RATE [facility]; Protocol Insulin Human Lispro (Humalog*) 0 units SUBCUT AC [facility]; Protocol Lisinopril (Prinivil Tab*) 10 mg PO QAM [facility]LY Ondansetron HCl (Zofran Inj*) 4 mg IV Q6H PRN NAUSEA Pneumococcal Polyvalent Vaccine (Pneumococcal Vac 23-Polyvalent*) 0.5 ml IM .ONCE ONE Triamterene/HCTZ (Dyazide Cap*) 1 cap PO QAM [facility] Vital Signs - 8 hr 05/11/18 05/11/1805/11/18 00:31 01:00 01:31 Temperature Pulse Rate 49 48 56 Respiratory 14 3 3 Rate Blood Pressure 129/40 101/38 112/35 (mmHg) O2 Sat by Pulse 98 97 98 Oximetry 05/11/18 05/11/18 05/11/18 02:00 03:00 03:02 Temperature Pulse Rate 55 52 Respiratory 4 14 0 Rate Blood Pressure 121/39 124/37 (mmHg) O2 Sat by Pulse 93 97 Oximetry 05/11/18 05/11/18 05/11/18 03:27 03:30 03:32 Temperature 97.8 F Pulse Rate 55 Respiratory 17 15 Rate Blood Pressure 153/67 (mmHg) O2 Sat by Pulse 98 Oximetry 05/11/18 05/11/18 05/11/18 04:01 04:02 04:30 Temperature Pulse Rate 57 62 Respiratory 15 18 Rate Blood Pressure 153/57 163/62 (mmHg) O2 Sat by Pulse 97 97 93 Oximetry 05/11/18 05/11/18 05:00 06:00 Temperature Pulse Rate 56 53 Respiratory 18 9 Rate Blood Pressure 142/70 142/40 (mmHg) O2 Sat by Pulse 93 93 Oximetry Oxygen Devices in Use Now: None Appearance: Elderly female laying in bed in NAD Eyes: No Scleral Icterus Ears/Nose/Mouth/Throat: Mucous Membranes Moist Neck: NL Appearance and Movements; NL JVP, Trachea Midline Respiratory: Symmetrical Chest Expansion and Respiratory Effort, Clear to Auscultation Cardiovascular: NL Sounds; No Murmurs; No JVD, RRR Abdominal: NL Sounds; No Tenderness; No Distention Extremities: No Edema Skin: No Rash or Ulcers Neurological: NL Sensation, - - Oriented to self and place Lines/Tubes/Other Access: Clean, Dry and Intact Peripheral IV Nutrition: Taking PO's Result Diagrams: 05/11/18 04:20 05/11/18 04:20 Assess/Plan/Problems-Billing Assessment: Ms. Jaime is an 87 yo with PMH of DM, CAD, HTN, HLD, prior colon cancer, and diabetic retinopathy who presented to the ED with altered mental status and was found to be hypoglycemic and profoundly bradycardic. - Patient Problems (1) Bradycardia Current Visit: Yes Status: Acute Code(s): R00.1 - BRADYCARDIA, UNSPECIFIED SNOMED Code(s): 27604563 Comment: - On admission HR 30-50 with dropped beats - Unclear etiology; sick sinus syndrome vs beta lucy use - HR improved off metoprolol; now 50-60s - Appreciate cardiology consult; possible pacemaker placement tomorrow (2) Episodic atrial fibrillation Current Visit: Yes Status: Acute Code(s): I48.0 - PAROXYSMAL ATRIAL FIBRILLATION SNOMED Code(s): 735059473 Comment: - Noted on telemetry in ED; no further afib noted on tele in ICU - Continue heparin drip at this point per cardiology; d/c 05/12 @ 0200 in anticipation of pacer placement (3) Hypoglycemia associated with diabetes Current Visit: Yes Status: Acute Code(s): E11.649 - TYPE 2 DIABETES MELLITUS WITH HYPOGLYCEMIA WITHOUT COMA SNOMED Code(s): 915454348 Comment: - On admission in the 40s, resolved with dextrose; now 140s - Unclear etiology; patient does not administer her own insulin, so low likelihood of administration error - Continue to hold regular insulin and NPH - Continue lispro SS and FS ACHS (4) Altered mental status Current Visit: Yes Status: Acute Code(s): R41.82 - ALTERED MENTAL STATUS, UNSPECIFIED SNOMED Code(s): 747919938 Comment: - Unclear if there was actually a syncopal episode - Likely 2/2 bradycardia and hypoglycemia - Brain CT unremarkable - Negative trops x3; EKGs without ischemic changes - Check echo (5) Hypertensive urgency Current Visit: Yes Status: Acute Code(s): I16.0 - HYPERTENSIVE URGENCY SNOMED Code(s): 645258054 Comment: - On admission SBP 170-200s - Nitro drip stopped last night; SBP now 120-160s (6) Chest pain Current Visit: Yes Status: Acute Code(s): R07.9 - CHEST PAIN, UNSPECIFIED SNOMED Code(s): 55095967 Comment: - 1 episode yesterday evening w/ associated SOB after receiving hydralazine; now resolved - Negative trops x3; EKGs without ischemic changes - Appears to have resolved rapidly, so this may represent a reaction to hydralazine; added as an allergy (7) Diabetes mellitus, type 2 Current Visit: Yes Status: Acute Comment: - Check Hgb A1c - Regular insulin and NPH on hold - Continue lispro SS (8) Hypertension Current Visit: Yes Status: Acute Code(s): I10 - ESSENTIAL (PRIMARY) HYPERTENSION SNOMED Code(s): 12007708 Comment: - As above - Continue lisinopril (9) Coronary artery disease Current Visit: Yes Status: Acute Code(s): I25.10 - ATHSCL HEART DISEASE OF [place] CORONARY ARTERY W/O ANG PCTRS SNOMED Code(s): 88217322 Comment: - Hold metoprolol - Continue aspirin, atorvastatin (10) Hyperlipidemia Current Visit: Yes Status: Acute Code(s): E78.5 - HYPERLIPIDEMIA, UNSPECIFIED SNOMED Code(s): 35681495 Comment: - Continue atorvastatin (11) CKD (chronic kidney disease) stage 3, GFR 30-59 ml/min Current Visit: Yes Status: Acute Code(s): N18.3 - CHRONIC KIDNEY DISEASE, STAGE 3 (MODERATE) SNOMED Code(s): 767721494 Comment: - Creatinine at baseline (12) Diabetic retinopathy Current Visit: Yes Status: Acute Code(s): E11.319 - TYPE 2 DIABETES W UNSP DIABETIC RTNOP W/O MACULAR EDEMA SNOMED Code(s): 5981629 Comment: - Supportive care (13) DVT prophylaxis Current Visit: Yes Status: Acute Code(s): FEX0454 - SNOMED Code(s): 275814595 Comment: - Heparin drip (14) Full code status Current Visit: Yes Status: Acute Code(s): Z78.9 - OTHER SPECIFIED HEALTH STATUS SNOMED Code(s): 286304324 Status and Disposition: Inpatient for close monitoring of heart rate and glucose. Transfer to . Possible pacemaker placement tomorrow. Anticipate d/c home when medically stable.
[2018-05-11] MEDS: Insulin LISPRO* 1 UNITS UNIT SUBCUT SCH ×5 (08:52→19:49)
[2018-05-11] MEDS ORDERED: Pneumococcal *Vac Polyvalent 0.5 ML VIAL IM ONE (09:00)
[2018-05-11] MEDS: Lisinopril TAB* 10 MG PO SCH (09:44)
[2018-05-11] MEDS: Aspirin 81 mg CHEW TAB* 81 MG TAB.CHEW PO SCH (09:44)
[2018-05-11] MEDS: Triamterene/HCTZ 37.5-25 MG* CAP PO SCH (09:45)
--- NOTE | 2018-05-11 16:25 | PN ---
Subjective Date of Service: 05/11/18 - CC: syncope Interval History: The patient feels well, back to herself. No longer dizzy. No c/o. Medications Active Medications: Acetaminophen (Tylenol Tab*) 650 mg PO Q4H PRN PRN Reason: FEVER/PAIN Aspirin (Aspirin 81 Mg Chew Tab*) [facility] Last Admin: 05/11/18 09:44 Dose: 81 mg Atorvastatin Calcium (Lipitor*) 20 mg PO QPM [facility] Last Admin: 05/10/18 17:33 Dose: 20 mg Dextrose (D50w Syringe 50 Ml*) 12.5 gm IV PUSH .FOR FS < 60 - SS PRN PRN Reason: FS < 60 Heparin Sodium/Dextrose (Heparin Drip 25,000 Units(*)) 25,000 units in 500 mls @ 0 mls/hr IV PER RATE [facility]; Protocol Last Admin: 05/10/18 15:32 Dose: 9.2 mls/hr Insulin Human Lispro (Humalog*) 0 units SUBCUT [facility]; Protocol Lisinopril (Prinivil Tab*) 10 mg PO [facility] Last Admin: 05/11/18 09:44 Dose: 10 mg Ondansetron HCl (Zofran Inj*) 4 mg IV Q6H PRN PRN Reason: NAUSEA Triamterene/HCTZ (Dyazide Cap*) 1 cap PO [facility] Last Admin: 05/11/18 09:45 Dose: 1 cap Objective Vital Signs: Temp Pulse Resp BP Pulse Ox 97.6 F 65 20 141/54 95 05/11/18 14:45 05/11/18 14:45 05/11/18 14:45 05/11/18 14:45 05/11/18 14:45 Oxygen Devices in Use Now: None Appearance: Older woman, lying 30 degrees, comfortable. Eyes: No Scleral Icterus, PERRLA Ears/Nose/Mouth/Throat: NL Teeth, Lips, Gums, Mucous Membranes Moist Neck: No Thyroid Enlargement, Masses Respiratory: Symmetrical Chest Expansion and Respiratory Effort, Clear to Auscultation Cardiovascular: RRR Abdominal: No Hepatosplenomegaly Extremities: No Edema Skin: No Rash or Ulcers Neurological: Alert and Oriented x 3 Lines/Tubes/Other Access: Clean, Dry and Intact Peripheral IV Laboratory Results: 05/11/18 04:20 05/11/18 04:20 INR (Anticoag Therapy) 0.91 (0.77-1.02) 05/11/18 04:20 APTT 89.0 seconds (26.0-36.3) H 05/11/18 11:24 Total Bilirubin 0.40 mg/dL (0.2-1.0) 05/10/18 12:52 AST 16 U/L (13-39) 05/10/18 12:52 ALT 13 U/L (7-52) 05/10/18 12:52 Alkaline Phosphatase 58 U/L (34-104) 05/10/18 12:52 Total Protein 6.5 g/dL (6.4-8.9) 05/10/18 12:52 Albumin 3.8 g/dL (3.2-5.2) 05/10/18 12:52 Globulin 2.7 g/dL (2-4) 05/10/18 12:52 Albumin/Globulin Ratio 1.4 (1-3) 05/10/18 12:52 Triglycerides 129 mg/dL 05/10/18 12:52 Cholesterol 178 mg/dL 05/10/18 12:52 LDL Cholesterol 87 mg/dL 05/10/18 12:52 HDL Cholesterol 64.8 mg/dL 05/10/18 12:52 TSH 2.29 mcIU/mL (0.34-5.60) 05/10/18 12:52 05/10/18 05/10/18 05/10/18 12:52 15:17 18:53 Troponin I 0.03 0.03 0.02 EKG Data: Monitor: NSR, no longer bardaycardia, no further afib (off metoprolol). Assessment/Plan 87 yo admitted with syncope at home, presented w ith severe hypoglycemia and bradycardia and marked HTN. In and out of afib as well (asymptomatic). ECG evidence of progressive lower sinus rates over time. Off metoprolol sinus rate has normalized. Syncope: -could have been low sugar and or low pulse. -I still recommend dual chamber pacer implantation to allow for rate lowering agents/antiarrhythmics, pt and daughter amenable. They understand there is an option of leaving her off metoprolol, no pacer, but her afib would not be able to be treated beyond blood thinners. PAF: -Asymptomatic. -I recommend anticoagulants unless felt unsafe iwth patient blindness and recent fall and living alone. CAD: - Normal trops reassuring. Can follow up as out patient.
[2018-05-11] MEDS: Atorvastatin* 20 MG TAB PO SCH (17:26)
[2018-05-12] MEDS ORDERED: D5W 1/2 NS 1000 ML BAG* 1,000 ML IV SCH (01:00)
[2018-05-12] MEDS ORDERED: Heparin VIAL(*) 5000 UNITS/ML VIAL (FIVE THOUSAND) IV SCH (02:00)
[2018-05-12 07:48] LABS: EGFR Non-African American 34.2 (>60)
[2018-05-12] MEDS ORDERED: ceFAZolin 2 GM PREMIX in ORs 2 GM/50 ML BAG IVPB ONE (08:00)
[2018-05-12] MEDS ORDERED: ceFAZolin 1 GM/10 ML flush(*) SYRINGE for pocket flush (cardiology) FLUSH ONE (08:00)
[2018-05-12] MEDS ORDERED: NS 0.9% 1000 ML* 1,000 ML IV SCH (08:30)
[2018-05-12] MEDS: Aspirin 81 mg CHEW TAB* 81 MG TAB.CHEW PO SCH (09:33)
[2018-05-12] MEDS: Triamterene/HCTZ 37.5-25 MG* CAP PO SCH (09:33)
[2018-05-12] MEDS: Lisinopril TAB* 10 MG PO SCH (09:33)
[2018-05-12] MEDS: Insulin LISPRO* 1 UNITS UNIT SUBCUT SCH ×4 (09:33→21:01)
--- NOTE | 2018-05-12 12:23 | ECHO ---
Patient: ABDIFATAH ALLEN [facility] Rec#: [id number] : 1930 Date: 05/12/2018 Age: 87y Height: 157 cm / 61.8 in Weight: 69.6 kg / 153.4 lbs Sex: F BSA: 1.7 Room#: [facility] Admit Date#: 05/10/2018 Type: Inpatient Referring: Kelley Quesada Reading: Torres Little MD Director Speech: Anna DavisonBRYCE CC: Niru Bermudez MD Transthoracic Echocardiogram Indication: Syncope BP: 152/56 HR: 81 Rhythm: NSR Findings History: DM, HTN, CAD, HLD. Technical Comments: The study quality is fair. Completed at 1145. Left Ventricle: The left ventricular chamber size is normal. There is no left ventricular hypertrophy. Left ventricular systolic function is at the lower limits of normal. The estimated ejection fraction is 50-55%. There is septal flattening of the interventricular septum consistent with right ventricular volume or pressure overload. Abnormal left ventricular diastolic function is observed. Abnormal left ventricular diastolic filling is observed, consistent with impaired relaxation. Left Atrium: The left atrium is mildly dilated. Right Ventricle: Moderator Band present. The right ventricle is mildly dilated. The right ventricular global systolic function is normal. Right Atrium: The right atrial cavity size is normal. There is evidence of an atrial septal aneurysm. Aortic Valve: The aortic valve is trileaflet. Mild aortic leaflet calcification is visualized. Systolic excursion of the aortic valve cusps is reduced. There is a trace of aortic regurgitation. There is mild aortic stenosis. The mean gradient of the aortic valve is 7 mmHg. The peak instantaneous gradient of the aortic valve is 19 mmHg. The aortic valve area, by peak velocities, is calculated at 1.4 cm2. The aortic valve area, by VTI's, is calculated at 1.7 cm2. Mitral Valve: There is posterior mitral annular calcification. Mitral valve anterior leaflet calcification is visualized. There is mild mitral regurgitation. There is no evidence of mitral stenosis. Tricuspid Valve: The tricuspid valve leaflets are normal. There is mild tricuspid regurgitation. The right ventricular systolic pressure is estimated at 26 mmHg. No pulmonary hypertension is noted. There is no tricuspid stenosis. Pulmonic Valve: The pulmonic valve appears normal. There is a trace pulmonic regurgitation. There is no pulmonic stenosis. Pericardium: There is no significant pericardial effusion. A pericardial fat pad is visualized. Aorta: There is mild dilatation of the ascending aorta. There is no dilatation of the aortic arch. The aortic root is normal in size. Pulmonary Artery: The main pulmonary artery appears normal. Venous: The inferior vena cava appears normal in size. There is a greater than 50% respiratory change in the inferior vena cava dimension. Conclusions Left ventricular systolic function is at the lower limits of normal. The estimated ejection fraction is 50-55%. There is septal flattening of the interventricular septum consistent with right ventricular volume or pressure overload. Abnormal left ventricular diastolic filling is observed, consistent with impaired relaxation. The right ventricular global systolic function is normal. Mild aortic leaflet calcification is visualized. There is mild aortic stenosis. The mean gradient of the aortic valve is 7 mmHg. There is a trace of aortic regurgitation. There is mild mitral regurgitation. There is mild tricuspid regurgitation. No pulmonary hypertension is noted. There is no significant pericardial effusion. Measurements Name Value Normal Range RVIDd (AP) 2D 3.4 cm (0.9 - 2.6) RVDdMajor (2D) 4.7 cm (2.2 - 4.4) RAd ISD 4CH 4.6 cm (3.4 - 4.9) RA (A4C)W 3.9 cm (2.9 - 4.6) IVSd (2D) 1 cm (0.6 - 1) LVPWd (2D) 1 cm (0.6 - 1) LVIDd (2D) 4.5 cm (3.6 - 5.4) LVIDs (2D) 3.5 cm - LV FS (2D) 22 % (25 - 45) Aortic Annulus 2.2 cm (1.4 - 2.6) Ao root diameter (2D) 3.5 cm (2.1 - 3.5) Ascending Ao 3.6 cm (2.1 - 3.4) Aortic arch 2.5 cm (1.8 - 3.4) LA dimension (AP) 2D 4.2 cm (2.3 - 3.8) LAd ISD 4CH 5.4 cm (2.9 - 5.3) LA ISD 4CH W 4 cm (2.5 - 4.5) Name Value Normal Range LA ESV BP (A/L) index 29 ml/m2 - Name Value Normal Range MV E-wave Vmax 0.6 m/sec - MV deceleration time 257 msec - MV A-wave Vmax 1.1 m/sec - MV E:A ratio 0.5 ratio - LV septal e' Vmax 0.04 m/sec - LV lateral e' Vmax 0.09 m/sec - LV E:e' septal ratio 15 ratio - LV E:e' lateral ratio 6.67 ratio - Name Value Normal Range AV Vmax 2.2 m/sec - AV VTI 37.9 cm - AV peak gradient 19 mmHg - AV mean gradient 7 mmHg - LVOT diameter 2 cm - LVOT Vmax 1 m/sec - LVOT VTI 20.8 cm - LVOT peak gradient 4 mmHg - LVOT mean gradient 2 mmHg - DOI (VTI) 0.5 ratio - SAEED (continuity Vmax) 1.4 cm2 - SAEED (continuity VTI) 1.7 cm2 - LISA Vmax 0.7 m/sec - Name Value Normal Range TR Vmax 2.4 m/sec - TR peak gradient 23 mmHg - RAP 3 mmHg - RVSP 26 mmHg - IVC diameter 1.6 cm - Name Value Normal Range PV Vmax 1.3 m/sec - PV peak gradient 7 mmHg -
[2018-05-12] MEDS ORDERED: Lidocaine 1% INJ* 10 MG/ML 30 ML SDV ONE (14:10)
[2018-05-12] MEDS ORDERED: Midazolam* 1 MG/ML 10 ML VIAL (10 MG) ONE (14:13)
[2018-05-12] MEDS ORDERED: fentaNYL* 50 MCG/ML 2 ML VIAL (100 MCG VIAL) ONE (14:13)
[2018-05-12] MEDS ORDERED: Naloxone* 0.4 MG/ML 1 ML VIAL ONE (15:07)
[2018-05-12] MEDS ORDERED: Flumazenil* 0.1 MG/ML 5 ML MDV ONE (15:07)
[2018-05-12] MEDS ORDERED: oxyCODONE/Acetamin 5/325 MG* TAB PO PRN (15:30)
[2018-05-12] MEDS: ceFAZolin 1 GM VIAL(*) 1 GM in NS 0.9% 50 ML* 50 ML IVPB SCH (16:37)
--- NOTE | 2018-05-12 16:44 | PN ---
Subjective Date of Service: 05/12/18 Interval History: Ms. Jaime feels better today. Son and daughter at bedside. She is anxious about the pacemaker placement. She would like to return home as soon as possible. She has been up ambulating without difficulty. She denies CP, SOB, N/V /D, dizziness. Appetite is good, though she has been NPO for procedure. Family History: Unchanged from Admission Social History: Unchanged from Admission Past Medical History: Unchanged from Admission Objective Active Medications: Acetaminophen (Tylenol Tab*) 650 mg PO Q4H PRN FEVER/PAIN Aspirin (Aspirin 81 Mg Chew Tab*) 81 mg PO QAM [facility] Atorvastatin Calcium (Lipitor*) 20 mg PO QPM [facility] Dextrose (D50w Syringe 50 Ml*) 12.5 gm IV PUSH .FOR FS < 60 - SS PRN FS < 60 Heparin Sodium (Porcine) (Heparin Vial(*)) 0 units IV .PER PROTOCOL [facility] Cefazolin Sodium 1 gm/ Sodium (Chloride) 50 mls @ 200 mls/hr IVPB Q8H [facility] Insulin Human Lispro (Humalog*) 0 units SUBCUT ACHS [facility]; Protocol Lisinopril (Prinivil Tab*) 10 mg PO QAM [facility] Ondansetron HCl (Zofran Inj*) 4 mg IV Q6H PRN NAUSEA Oxycodone/Acetaminophen (Percocet 5/325 Tab*) 1 tab PO Q4H PRN PAIN Triamterene/HCTZ (Dyazide Cap*) 1 cap PO QAM [facility] Vital Signs - 8 hr 05/12/18 05/12/18 05/12/18 11:35 15:49 15:50 Temperature 98.1 F Pulse Rate 75 74 73 Respiratory 16 Rate Blood Pressure 155/65 148/73 (mmHg) O2 Sat by Pulse 98 94 94 Oximetry 05/12/18 05/12/18 16:00 16:19 Temperature Pulse Rate 74 Respiratory Rate Blood Pressure 177/74 (mmHg) O2 Sat by Pulse 93 Oximetry Oxygen Devices in Use Now: None Appearance: Elderly woman sitting in chair in NAD Eyes: No Scleral Icterus Ears/Nose/Mouth/Throat: Mucous Membranes Moist Neck: NL Appearance and Movements; NL JVP, Trachea Midline Respiratory: Symmetrical Chest Expansion and Respiratory Effort, Clear to Auscultation Cardiovascular: NL Sounds; No Murmurs; No JVD, RRR Abdominal: NL Sounds; No Tenderness; No Distention Extremities: No Edema Skin: No Rash or Ulcers Neurological: Alert and Oriented x 3 Lines/Tubes/Other Access: Clean, Dry and Intact Peripheral IV Nutrition: Taking PO's Result Diagrams: 05/11/18 04:20 05/12/18 07:05 Assess/Plan/Problems-Billing Assessment: Ms. Jaime is an 87 yo with PMH of DM, CAD, HTN, HLD, prior colon cancer, and diabetic retinopathy who presented to the ED with altered mental status and was found to be hypoglycemic and profoundly bradycardic. - Patient Problems (1) Bradycardia Current Visit: Yes Status: Acute Code(s): R00.1 - BRADYCARDIA, UNSPECIFIED SNOMED Code(s): 29494256 Comment: - On admission HR 30-50 with dropped beats - Unclear etiology; sick sinus syndrome vs beta lucy use - HR improved off metoprolol; now 70s - Appreciate cardiology consult; plan for pacemaker placement today (2) Episodic atrial fibrillation Current Visit: Yes Status: Acute Code(s): I48.0 - PAROXYSMAL ATRIAL FIBRILLATION SNOMED Code(s): 479969942 Comment: - Noted on telemetry in ED; no further afib noted on tele in ICU - Continue heparin drip at this point per cardiology; drip on hold at this time in anticipation of pacer placement, but will need to resume when safe to do so - Patient and family undecided on outpatient anticoagulation; they will discuss further, but they understand risks and benefits (3) Hypoglycemia associated with diabetes Current Visit: Yes Status: Acute Code(s): E11.649 - TYPE 2 DIABETES MELLITUS WITH HYPOGLYCEMIA WITHOUT COMA SNOMED Code(s): 845857664 Comment: - On admission in the 40s, resolved with dextrose; now 200s - Unclear etiology; patient does not administer her own insulin, so low likelihood of administration error, but family reports multiple instance of hypoglycemia recently, so insulin dosing may have been too high - Continue to hold regular insulin and NPH - Continue lispro SS (4) Altered mental status Current Visit: Yes Status: Acute Code(s): R41.82 - ALTERED MENTAL STATUS, UNSPECIFIED SNOMED Code(s): 745739240 Comment: - Unclear if there was actually a syncopal episode - Likely 2/2 bradycardia and hypoglycemia - Brain CT unremarkable - Negative trops x3; EKGs without ischemic changes - TTE shows EF 50-55%, abnormal LV diastolic filling and septal flattening (5) Hypertensive urgency Current Visit: Yes Status: Acute Code(s): I16.0 - HYPERTENSIVE URGENCY SNOMED Code(s): 234210015 Comment: - On admission SBP 170-200s - Nitro drip stopped last night; SBP now 130-150s (6) Chest pain Current Visit: Yes Status: Acute Code(s): R07.9 - CHEST PAIN, UNSPECIFIED SNOMED Code(s): 41927139 Comment: - 1 episode on admission w/ associated SOB after receiving hydralazine; now resolved - Negative trops x3; EKGs without ischemic changes - Likely reaction to hydralazine (7) Diabetes mellitus, type 2 Current Visit: Yes Status: Acute Comment: - Check Hgb A1c - Regular insulin and NPH on hold - Continue lispro SS (8) Hypertension Current Visit: Yes Status: Acute Code(s): I10 - ESSENTIAL (PRIMARY) HYPERTENSION SNOMED Code(s): 33671594 Comment: - As above - Continue lisinopril (9) Coronary artery disease Current Visit: Yes Status: Acute Code(s): I25.10 - ATHSCL HEART DISEASE OF [place] CORONARY ARTERY W/O ANG PCTRS SNOMED Code(s): 37762198 Comment: - Hold metoprolol - Continue aspirin, atorvastatin (10) Hyperlipidemia Current Visit: Yes Status: Acute Code(s): E78.5 - HYPERLIPIDEMIA, UNSPECIFIED SNOMED Code(s): 65532540 Comment: - Continue atorvastatin (11) CKD (chronic kidney disease) stage 3, GFR 30-59 ml/min Current Visit: Yes Status: Acute Code(s): N18.3 - CHRONIC KIDNEY DISEASE, STAGE 3 (MODERATE) SNOMED Code(s): 712762074 Comment: - Creatinine at baseline (12) Diabetic retinopathy Current Visit: Yes Status: Acute Code(s): E11.319 - TYPE 2 DIABETES W UNSP DIABETIC RTNOP W/O MACULAR EDEMA SNOMED Code(s): 9300378 Comment: - Supportive care (13) DVT prophylaxis Current Visit: Yes Status: Acute Code(s): KQV6016 - SNOMED Code(s): 810813023 Comment: - Heparin drip on hold for procedure (14) Full code status Current Visit: Yes Status: Acute Code(s): Z78.9 - OTHER SPECIFIED HEALTH STATUS SNOMED Code(s): 032021961 Status and Disposition: Inpatient for close monitoring of heart rate and glucose. Pacer placement today. Anticipate d/c home when medically stable. She sounds to have adequate support at home with family and health aides.
[2018-05-12] MEDS: Atorvastatin* 20 MG TAB PO SCH (17:54)
[2018-05-12] MEDS: Metoprolol Tartrate TAB* 25 MG PO SCH (21:01)
[2018-05-13] MEDS: ceFAZolin 1 GM VIAL(*) 1 GM in NS 0.9% 50 ML* 50 ML IVPB SCH ×2 (00:22→08:15)
[2018-05-13 04:32] LABS: ABS Basophils 0.1 10^3/ul (0-0.2); ABS Eosinophils 0.2 10^3/ul (0-0.6); ABS Lymphocytes 1.1 10^3/ul (1.0-4.8); ABS Monocytes 0.6 10^3/ul (0-0.8); ABS Neutrophils 5.4 10^3/ul (1.5-7.7); ABS Nucleated RBC 0 10^3/ul; Hematocrit 41 % (35-47); Hemoglobin 13.2 g/dl (12.0-16.0); Lymphocyte % 14.6 %; Mean Corpuscular HGB Conc 32 g/dl (31-36); Mean Corpuscular Hemoglobin 29 pg (27-31); Mean Corpuscular Volume 91 fL (80-97); Mean Platelet Volume 8.7 fL (7.4-10.4); Nucleated Red Blood Cells % 0; Platelet Count 213 10^3/ul (150-450); Red Blood Count 4.49 10^6/ul (4.00-5.40); Red Cell Distribution Width 14 % (10.5-15); White Blood Count 7.4 10^3/ul (3.5-10.8)
[2018-05-13] MEDS: Insulin LISPRO* 1 UNITS UNIT SUBCUT SCH ×2 (08:17→14:08)
[2018-05-13] MEDS: Lisinopril TAB* 10 MG PO SCH (08:19)
[2018-05-13] MEDS: Triamterene/HCTZ 37.5-25 MG* CAP PO SCH (08:19)
[2018-05-13] MEDS: Metoprolol Tartrate TAB* 25 MG PO SCH (08:19)
[2018-05-13] MEDS: Aspirin 81 mg CHEW TAB* 81 MG TAB.CHEW PO SCH (08:19)
[2018-05-13 12:17] VITALS: BP 136/51
--- NOTE | 2018-05-14 04:51 | OP ---
CC: Dr. Blair * DATE OF OPERATION: 05/12/18 - ROOM #431 DATE OF : 30 SURGEON: Torres Little MD ANESTHESIA: Local anesthesia with conscious sedation. PRE-OP DIAGNOSES: Sick sinus syndrome, atrial fibrillation. POST-OP DIAGNOSES: Sick sinus syndrome, atrial fibrillation. OPERATIVE PROCEDURE: Dual-chamber ICD implantation. ESTIMATED BLOOD LOSS: Nil. COMPLICATIONS: None. INDICATION: The patient is an 87-year-old female with a history of paroxysmal atrial fibrillation who was admitted to the hospital with weakness. She was found to be in atrial fibrillation with heart rates down to 20 beats per minute with up to 4-second pauses. The patient subsequently converted to normal sinus rhythm. She was in sinus bradycardia at 40 beats per minute. Her beta-blockers were withheld and her heart rate came up to 70 beats per minute. The patient has a history of atrial fibrillation with rapid ventricular response. Sick sinus syndrome was diagnosed and permanent pacemaker was recommended. DESCRIPTION OF PROCEDURE: The patient was brought to the procedure room in a fasting state. Informed consent had been obtained prior to the procedure. All labs were reviewed. The patient was placed supine on the procedure table. Her left deltopectoral area was cleaned and draped in the usual fashion. 1% lidocaine was used for local anesthesia. Under ultrasound guidance, the axillary vein was entered by a Seldinger technique and a guidewire was placed. The second guidewire was placed in the same technique. A 3-cm incision was made in the pectoral area and blunt dissection was carried down to the pectoral fascia and a pocket was fashioned for the pacemaker. Over the guidewire, a 7- [place] sheath introducer was placed through which a right ventricular ICD lead was advanced to the RV apex. The right ventricular lead was a Medtronic, model 5076, serial number [id number]. It had an R-wave sensitivity of 13, impedance 997 ohms, threshold 0.4 V at 0.5 msec. The ventricular lead was sutured to the pectoral fascia. Over the second guidewire, a 7-[place] sheath introducer was placed through which a right atrial lead was advanced to the high right atrium. The right atrial lead was a Medtronic, model 5076, serial number [id number]. It had a P-wave sensitivity of 3, impedance 688 ohms, threshold 2.4 V at 0.5 msec. At the end of the case the threshold was down to 1 V at 0.5 msec. The atrial lead was sutured to the pectoral fascia. A generator was attached to the lead appropriately. The generator is a XYDO, model W1DR01, serial number [id number]. The device was placed into the pocket. The surgical incision was closed in 3 layers. The patient tolerated the procedure well with no complications. [id number]/[facility] #: [id number] ELLIOTT
--- NOTE | 2018-05-14 10:52 | DS ---
CC: Niru Bermudez MD; Torres Little MD * DISCHARGE SUMMARY: DATE OF ADMISSION: 05/10/18 DATE OF DISCHARGE: 05/13/18 PRIMARY CARE PROVIDER: Niru Bermudez MD ATTENDING PHYSICIAN: Yen Odonnell MD * (dictated by Kelley Quesada NP). PRIMARY DIAGNOSES: 1. Bradycardia, status post pacemaker placement. 2. Atrial fibrillation. 3. Hypoglycemia secondary to insulin use. 4. Altered mental status with possible syncopal episode. 5. Hypertensive urgency. 6. Chest pain. SECONDARY DIAGNOSES: 1. Diabetes mellitus type 2. 2. Coronary artery disease. 3. Hyperlipidemia. 4. Chronic kidney disease, stage 3. 5. Diabetic retinopathy. STUDIES WHILE IN THE HOSPITAL: 1. Brain CT on 05/10/18 reads as no intracranial mass or hemorrhages noted. No other high or low density lesions are identified. 2. Chest x-ray on 05/10/18 reads as discoid atelectasis in the left mid lung field. The patient is status post changed sternal thoracotomy. 3. EKG on 05/10/18 shows sinus bradycardia with a rate of 38. No ischemic changes. QTC 438. 4. EKG on 05/10/18 shows atrial fibrillation with rate of 48. No ischemic changes. QTC 407. 5. Transthoracic echocardiogram on 05/12/18 reads as left ventricular systolic function is at the lower limits of normal. The estimated ejection fraction is 50% to 55%. There is septal flattening of the interventricular septum consistent with right ventricular volume or pressure overload. Abnormal left ventricular diastolic filling is observed consistent with impaired relaxation. The right ventricular global systolic function is normal. Mild aortic leaflet calcification is visualized. There is mild aortic stenosis. The mean gradient of the aortic valve is 7 mmHg. There is trace aortic regurgitation. There is mild mitral regurgitation. There is mild tricuspid regurgitation. No pulmonary hypertension is noted. There is no significant pericardial effusion. 6. Chest x-ray on 05/12/18 reads as negative for pneumothorax or pulmonary edema post pacemaker placement. 7. Chest x-ray on 05/13/18 reads as no active cardiopulmonary disease. CONSULTATIONS WHILE IN THE HOSPITAL: 1. The patient was seen in consultation by Dr. Blair from Cardiology on 05/10 for symptomatic bradycardia. HISTORY OF PRESENT ILLNESS AND HOSPITAL COURSE: Ms. Jaime is an 87-year-old female with past medical history of diabetes mellitus type 2, coronary artery disease, hypertension, hyperlipidemia, and diabetic retinopathy, who presented to the emergency room on 05/10/18 with complaints of altered mental status. Please see the history and physical by Cheikh Rincon NP for a complete summary of the events leading up to this hospitalization. In short, the patient was found by her son in the morning. She was not acting like herself and seemed quite confused. EMS was called and reportedly her blood sugar was in the 40s en route to the hospital and was 49 when she arrived in the emergency room. She was noted to have profound bradycardia in the 30s with occasional dropped beats. The patient did not recall much of the episode. Initially, a Code Gonzales was called because of a concern for stroke, though it was deemed that her symptoms were simply related to hypoglycemia. She was admitted by the hospitalist service for bradycardia and hypoglycemia. She was admitted to the intensive care unit. Cardiology was consulted and at that point, they recommended a pacemaker placement. The patient's beta lucy was held. Her hypoglycemia resolved with dextrose and her fingersticks were monitored frequently. In the emergency room, the patient was noted to be significantly hypertensive and after a blood pressure of 199/70, she was given IV hydralazine. After the IV hydralazine, the patient experienced significant chest discomfort and shortness of breath. Another EKG was done, which ultimately showed atrial fibrillation. The patient was started on heparin drip. She was additionally started on a nitro drip to monitor blood pressure. Ultimately, her chest pain resolved and it was deemed that the chest pain was an adverse reaction to HYDRALAZINE, and this was added as an allergy. The next day, the patient reported feeling much better. Heart rate was in the 60s to 70s and she was transferred up to the telemetry floor. Plan was still for a pacemaker placement on Saturday. Heparin drip was continued. The heparin drip was ultimately stopped on 05/12/18 at 2 a.m. in anticipation of pacemaker placement per Cardiology recommendations. It is still unclear what caused the bradycardia. The etiology may be sick sinus syndrome versus beta-lucy use. Her hypoglycemia likely secondary to insulin use. The family reports that the patient has had one other recent episode of hypoglycemia around midday, so it is likely that her morning insulin dose is too high. Her chest pain resolved and she had no further complaints of chest pain or shortness of breath. She had negative troponins x3 and EKG did not show any ischemic changes. Her blood pressure improved and she was taken off the nitro drip. She had an echo as noted above. Ultimately, the patient had a pacemaker placed on 05/12/18. The patient tolerated the procedure well. Blood pressure has continued to improve. Heart rate has also improved into the 60s consistently. Blood sugars have ranged from 120s to high 200s and she was covered with sliding scale insulin while she was here in the hospital. Kidney function remained stable. She did have a negative Lyme serology. I spoke with Dr. Little this morning who reported that the patient was stable for discharge from his perspective. He reported that she did not need any medication changes and he would see her for followup in 1 week. He asked that I place her on Keflex for 3 days for pacemaker placement. I will note that I have discussed anticoagulation with the patient and her family because of her newly noted atrial fibrillation. 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 They understand the risks and benefits of anticoagulation and wish to follow up with Dr. Little to discuss this at a later time. Ms. Jaime is stable for discharge today. Vital signs are as follows: Temp 97.9, heart rate 59, respiratory rate 18, oxygen saturation 95% on room air, blood pressure 136/51. DISCHARGE MEDICATIONS: New home medication: 1. Cephalexin 250 mg p.o. t.i.d. x3 days. Change home medications: 1. Insulin NPH 13 units subcu every morning (previously was 16 units). 2. Insulin regular 6 units subcu every morning (previously was 9 units). Continued home medications: 1. Aspirin 81 mg p.o. daily. 2. Insulin NPH 9 units subcu at bedtime. 3. Insulin regular 5 units subcu at bedtime. 4. Lisinopril 10 mg p.o. daily. 5. Metoprolol tartrate 25 mg p.o. b.i.d. 6. Multivitamin 1 tab p.o. daily. 7. Potassium chloride 8 mEq p.o. daily. 8. Simvastatin 40 mg p.o. daily. 9. Dyazide 1 cap p.o. daily. DISCHARGE PLAN: Ms. Jaime will be discharged to home. Her family reports that she will have 07/01 care at home. ACTIVITY: As tolerated. DIET: Diabetic, heart healthy. MEDICATIONS: Noted above. The patient has been prescribed a 3-day course of Keflex for post-pacer prophylaxis per request by Dr. Little. Her morning NPH and regular insulin have both been decreased due to midday hypoglycemia. She can continue her other usual medications. She will need to follow up with her primary care provider in 4 to 7 days. At that point, she will need to determine if there should be any other further titration of her insulin dosing. She will need to follow up with Dr. Little in 1 week and a decision will need to be made regarding anticoagulation. She and her family have been provided with discharge instructions for pacemaker placement. They have been advised to return to the emergency room for any worsening of symptoms, shortness of breath , lightheadedness, dizziness, chest discomfort, high fevers, chills, night sweats, loss of consciousness, or any other worrisome signs or symptoms. This is a summarized report of a complex medical history and hospital stay. For further details, please see the entire medical record. TIME SPENT: Approximately 45 minutes were spent on this discharge, greater than half of that time spent [id number] with the patient discussing discharge plans and instructions. KELLEY QUESADA NP [id number]/[facility] #: [id number] ELLIOTT
== END 2018-05-13 13:45 | disposition home or self-care (01) | DRG 244 ==
LOC: ED 12:35 → ICU 14:16 → MEDTELE 05-11 11:20
PROVIDERS: ADMIT Nurse Practitioner Family; ATTEND Specialist
PROC: 02H63JZ Insertion of Pacemaker Lead into Right Atrium, Percutaneous Approach (ICD-10-PCS; 2018-05-12)
PROC: 02HK3JZ Insertion of Pacemaker Lead into Right Ventricle, Percutaneous Approach (ICD-10-PCS; 2018-05-12)
PROC: 0JH606Z Insertion of Pacemaker, Dual Chamber into Chest Subcutaneous Tissue and Fascia, Open Approach (ICD-10-PCS; principal; 2018-05-12 13:00)
DX: I49.5 Sick sinus syndrome (principal); F03.90 Unspecified dementia, unspecified severity, without behavioral disturbance, psychotic disturbance, mood disturbance, and anxiety; E11.22 Type 2 diabetes mellitus with diabetic chronic kidney disease; R40.2412 Glasgow coma scale score 13-15, at arrival to emergency department; E11.649 Type 2 diabetes mellitus with hypoglycemia without coma; I25.10 Atherosclerotic heart disease of native coronary artery without angina pectoris; I48.0 Paroxysmal atrial fibrillation; E78.5 Hyperlipidemia, unspecified; E11.319 Type 2 diabetes mellitus with unspecified diabetic 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; I16.0 Hypertensive urgency; I12.9 Hypertensive chronic kidney disease with stage 1 through stage 4 chronic kidney disease, or unspecified chronic kidney disease; I08.3 Combined rheumatic disorders of mitral, aortic and tricuspid valves; T38.3X5A Adverse effect of insulin and oral hypoglycemic [antidiabetic] drugs, initial encounter; H54.62 Unqualified visual loss, left eye, normal vision right eye; N18.3 Chronic kidney disease, stage 3 (moderate); R07.9 Chest pain, unspecified; T46.5X5A Adverse effect of other antihypertensive drugs, initial encounter; Y92.239 Unspecified place in hospital as the place of occurrence of the external cause; Z88.5 Allergy status to narcotic agent; Z88.8 Allergy status to other drugs, medicaments and biological substances; Z85.038 Personal history of other malignant neoplasm of large intestine; Z95.1 Presence of aortocoronary bypass graft; Z98.42 Cataract extraction status, left eye; Z98.41 Cataract extraction status, right eye; Z83.3 Family history of diabetes mellitus; Z85.820 Personal history of malignant melanoma of skin; Z90.49 Acquired absence of other specified parts of digestive tract; Z82.49 Family history of ischemic heart disease and other diseases of the circulatory system; Z79.4 Long term (current) use of insulin; Z79.82 Long term (current) use of aspirin
CPT/HCPCS: 33208; 36415; 70450; 71045; 71046; 80048; 80053; 80061; 81003; 81015; 83036; 83605; 83735; 84443; 84484; 85025; 85610; 85730; 86618; 86850; 86900; 86901; 87086; 87641; 93005; 93306; 99156; 99157; 99284; A9270-GY; C1785; C1898; J0360; J0690; J1644; J2250; J2310; J3010

== ENCOUNTER 2018-08-26 23:58 | Emergency (ER) | payer MEDICARE ==
[2018-08-27 00:48] LABS: ABS Basophils 0.1 10^3/ul (0-0.2); ABS Eosinophils 0.2 10^3/ul (0-0.6); ABS Lymphocytes 1.3 10^3/ul (1.0-4.8); ABS Monocytes 0.5 10^3/ul (0-0.8); ABS Neutrophils 4.2 10^3/ul (1.5-7.7); ABS Nucleated RBC 0 10^3/ul; Eosinophil % 3.1 %; Hematocrit 40 % (35-47); Lymphocyte % 21.3 %; Mean Corpuscular HGB Conc 33 g/dl (31-36); Mean Corpuscular Hemoglobin 29 pg (27-31); Mean Corpuscular Volume 89 fL (80-97); Mean Platelet Volume 8.7 fL (7.4-10.4); Nucleated Red Blood Cells % 0; Platelet Count 228 10^3/ul (150-450); Red Blood Count 4.46 10^6/ul (4.00-5.40); Red Cell Distribution Width 14 % (10.5-15); White Blood Count 6.3 10^3/ul (3.5-10.8)
[2018-08-27 00:50] LABS: INR 0.9 (0.77-1.02)
[2018-08-27 01:00] LABS: Albumin 3.9 g/dL (3.2-5.2); Albumin/Globulin Ratio 1.4 (1-3); BUN/Creatinine Ratio 26.7 (8-20); C Reactive Protein 1.01 mg/L (<8.01); EGFR African American 39.7 (>60); EGFR Non-African American 32.8 (>60); Globulin 2.8 g/dL (2-4); Potassium 4.4 mmol/L (3.5-5.0); Total Bilirubin 0.4 mg/dL (0.2-1.0); Total Protein 6.7 g/dL (6.4-8.9)
[2018-08-27 01:01] LABS: Troponin I 0.01 ng/mL (<0.04)
--- NOTE | 2018-08-27 02:20 | ED ---
Shortness of Breath - HPI Summary HPI Summary: Patient complains of sudden onset shortness of breath around 6 PM when she laid down to sleep. PMS patient O2 sats were in the 90s on room air. Patient also complains of mild chest tightness, was given 4 aspirin and 1 nitroglycerin with no change in symptoms. Patient improved on oxygen. Patient denies active CP here in the ED, states she feels better on oxygen. Denies fever, cough, sore throat, GRIMALDO, neck stiffness, N/V/D, abdominal pain, change in urine, change in BM. Medical history is CHF, DM, pacemaker placed April 2018 for irregular heart rate. - History of Current Complaint Chief Complaint: EDShortnessOfBreath Time Seen by Provider: 08/27/18 00:05 Hx Obtained From: Patient, Family/Ophthalmic Tech Onset/Duration: Sudden Onset, Lasting Hours Timing: Constant Current Severity: Mild Dyspnea At: Orthopena Aggrevating Factors: Recumbent Position Alleviating Factors: Oxygen Associated Signs & Symptoms: Negative - Allergy/Home Medications Allergies/Adverse Reactions: Allergies Allergy/AdvReac Type Severity Reaction Status Date / Time brimonidine [From Combigan] Allergy Dizziness Verified 02/17/18 11:25 codeine Allergy GI Upset Verified 02/17/18 11:25 hydralazine Allergy Difficulty Verified 05/10/18 15:04 Breathing timolol [From Combigan] Allergy Dizziness Verified 02/17/18 11:25 PMH/Surg Hx/FS Hx/Imm Hx Endocrine/Hematology History: Reports: Hx Diabetes - Type I, insulin dependent, diagnosed late , early 1999 Cardiovascular History: Reports: Hx Coronary Artery Disease - listed in select visits, Hx Hypertension - controlled with medication, Other Cardiovascular Problems/Disorders - 2006 ?, bypass surgery GI History: Reports: Hx Gastroesophageal Reflux Disease History: Reports: Other Problems/Disorders - 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 bypass surgery 2006 approx. Hx Anesthesia Reactions: No Infectious Disease History: No Infectious Disease History: Denies: Traveled Outside the [place] in Last 30 Days - Family History Known Family History: Positive: Unknown - Pt denies knowledge of family history. - Social History Alcohol Use: Rare Alcohol Amount: only a toast 1-2 x a year, occas. a beer in the summer Hx Substance Use: No Substance Use Type: Reports: None Hx Tobacco Use: No Smoking Status (MU): Never Smoked Tobacco Review of Systems Constitutional: Negative Eyes: Negative ENT: Negative Positive: Chest Pain Positive: Shortness Of Breath Gastrointestinal: Negative Genitourinary: Negative Musculoskeletal: Negative Skin: Negative Neurological: Negative Psychological: Normal All Other Systems Reviewed And Are Negative: Yes Physical Exam Triage Information Reviewed: Yes Vital Signs On Initial Exam: Initial Vitals Temp Pulse Resp BP Pulse Ox 98 F 62 20 162/73 98 08/27/18 00:04 08/27/18 00:04 08/27/18 00:04 08/27/18 00:04 08/27/18 00:04 Vital Signs Reviewed: Yes Appearance: Positive: Well-Appearing Skin: Positive: Warm Head/Face: Positive: Normal Head/Face Inspection Eyes: Positive: Normal Neck: Positive: Supple Respiratory/Lung Sounds: Positive: Clear to Auscultation Cardiovascular: Positive: Normal Abdomen Description: Positive: Nontender Musculoskeletal: Positive: Normal Neurological: Positive: Normal Psychiatric: Positive: Normal AVPU Assessment: Alert - Andrew Coma Scale Best Eye Response: 4 - Spontaneous Best Motor Response: 6 - Obeys Commands Best Verbal Response: 5 - Oriented Coma Scale Total: 15 Diagnostics - Vital Signs Vital Signs Temp Pulse Resp BP Pulse Ox 08/27/18 00:07 60 19 162/73 99 08/27/18 00:06 60 20 99 08/27/18 00:04 98 F 62 20 162/73 98 - Laboratory Lab Results: Lab Results 08/27/18 08/27/18 08/27/18 Range/Units 00:25 00:25 00:25 WBC 6.3 (3.5-10.8) 10^3/ul RBC 4.46 (4.00-5.40) 10^6/ul Hgb 13.0 (12.0-16.0) g/dl Hct 40 (35-47) % MCV 89 (80-97) fL MCH 29 (27-31) pg MCHC 33 (31-36) g/dl RDW 14 (10.5-15) % Plt Count 228 (150-450) 10^3/ul MPV 8.7 (7.4-10.4) fL Neut % (Auto) 66.0 % Lymph % (Auto) 21.3 % Lake % (Auto) 8.4 % Eos % (Auto) 3.1 % Baso % (Auto) 1.2 % Absolute Neuts (auto) 4.2 (1.5-7.7) 10^3/ul Absolute Lymphs (auto) 1.3 (1.0-4.8) 10^3/ul Absolute Monos (auto) 0.5 (0-0.8) 10^3/ul Absolute Eos (auto) 0.2 (0-0.6) 10^3/ul Absolute Basos (auto) 0.1 (0-0.2) 10^3/ul Absolute Nucleated RBC 0 10^3/ul Nucleated RBC % 0 INR (Anticoag Therapy) (0.77-1.02) ABG pH (7.35-7.45) ABG pCO2 (35-45) mmHg ABG pO2 (80-100) mmHg ABG HCO3 (19-31) mmol/L ABG O2 Saturation (94.0-98.0) % ABG Base Excess (-2.0-2.0) mmol/L Sodium 140 (135-145) mmol/L Potassium 4.4 (3.5-5.0) mmol/L Chloride 102 (101-111) mmol/L Carbon Dioxide 29 (22-32) mmol/L Anion Gap 9 (2-11) mmol/L BUN 40 H (6-24) mg/dL Creatinine 1.50 H (0.51-0.95) mg/dL Est GFR ( Amer) 39.7 (>60) Est GFR (Non-Af Amer) 32.8 (>60) BUN/Creatinine Ratio 26.7 H (8-20) Glucose 165 H (70-100) mg/dL Lactic Acid 1.0 (0.5-2.0) mmol/L Calcium 9.0 (8.6-10.3) mg/dL Total Bilirubin 0.40 (0.2-1.0) mg/dL AST 18 (13-39) U/L ALT 14 (7-52) U/L Alkaline Phosphatase 61 (34-104) U/L Troponin I 0.01 (<0.04) ng/mL C-Reactive Protein 1.01 (<8.01) mg/L B-Natriuretic Peptide (<=100) pg/mL Total Protein 6.7 (6.4-8.9) g/dL Albumin 3.9 (3.2-5.2) g/dL Globulin 2.8 (2-4) g/dL Albumin/Globulin Ratio 1.4 (1-3) 08/27/18 08/27/18 08/27/18 Range/Units 00:25 00:25 01:10 WBC (3.5-10.8) 10^3/ul RBC (4.00-5.40) 10^6/ul Hgb (12.0-16.0) g/dl Hct (35-47) % MCV (80-97) fL MCH (27-31) pg MCHC (31-36) g/dl RDW (10.5-15) % Plt Count (150-450) 10^3/ul MPV (7.4-10.4) fL Neut % (Auto) % Lymph % (Auto) % Lake % (Auto) % Eos % (Auto) % Baso % (Auto) % Absolute Neuts (auto) (1.5-7.7) 10^3/ul Absolute Lymphs (auto) (1.0-4.8) 10^3/ul Absolute Monos (auto) (0-0.8) 10^3/ul Absolute Eos (auto) (0-0.6) 10^3/ul Absolute Basos (auto) (0-0.2) 10^3/ul Absolute Nucleated RBC 10^3/ul Nucleated RBC % INR (Anticoag Therapy) 0.90 (0.77-1.02) ABG pH 7.41 (7.35-7.45) ABG pCO2 49 H (35-45) mmHg ABG pO2 75 L (80-100) mmHg ABG HCO3 29.0 (19-31) mmol/L ABG O2 Saturation 97.8 (94.0-98.0) % ABG Base Excess 5.3 H (-2.0-2.0) mmol/L Sodium (135-145) mmol/L Potassium (3.5-5.0) mmol/L Chloride (101-111) mmol/L Carbon Dioxide (22-32) mmol/L Anion Gap (2-11) mmol/L BUN (6-24) mg/dL Creatinine (0.51-0.95) mg/dL Est GFR ( Amer) (>60) Est GFR (Non-Af Amer) (>60) BUN/Creatinine Ratio (8-20) Glucose (70-100) mg/dL Lactic Acid (0.5-2.0) mmol/L Calcium (8.6-10.3) mg/dL Total Bilirubin (0.2-1.0) mg/dL AST (13-39) U/L ALT (7-52) U/L Alkaline Phosphatase (34-104) U/L Troponin I (<0.04) ng/mL C-Reactive Protein (<8.01) mg/L B-Natriuretic Peptide 78 (<=100) pg/mL Total Protein (6.4-8.9) g/dL Albumin (3.2-5.2) g/dL Globulin (2-4) g/dL Albumin/Globulin Ratio (1-3) Result Diagrams: 08/27/18 00:25 08/27/18 00:25 Lab Statement: Any lab studies that have been ordered have been reviewed, and results considered in the medical decision making process. Course/Dx - Course Course Of Treatment: Patient complains of sudden onset shortness of breath around 6 PM when she laid down to sleep. PMS patient O2 sats were in the 90s on room air. Patient also complains of mild chest tightness, was given 4 aspirin and 1 nitroglycerin with no change in symptoms. Patient improved on oxygen. Patient denies active CP here in the ED, states she feels better on oxygen. Denies fever, cough, sore throat, GRIMALDO, neck stiffness, N/V/D, abdominal pain, change in urine, change in BM. Medical history is CHF, DM, pacemaker placed April 2018 for irregular heart rate. Physical exam unremarkable. Lung sounds clear to auscultation bilaterally. RRR. Abdomen soft nontender. Vital signs within normal limits. Patient taken off of oxygen and O2 sats remained at 93 to any 96%. Patient states symptoms resolved by time of arrival in the ED. Labs are unremarkable. Creatinine at baseline. Chest x-ray unremarkable. BMP unremarkable. EKG atrial paced rhythm, the same as prior. Troponin negative. PO2 per ABG 75. Patient was placed flat for 10 minutes in exam room bed with no change. Patient states no shortness of breath while lying flat. Discussed patient with Dr. mcfadden who agreed patient to be discharged home. Patient advised to return for any new or concerning symptoms. Patient and family understand and approve plan. Patient has a caregiver 07/01. - Diagnoses Provider Diagnoses: Shortness of breath Discharge - Sign-Out/Discharge Documenting (check all that apply): Patient Departure Patient Received Moderate/Deep Sedation with Procedure: No - Discharge Plan Condition: Stable Disposition: HOME Patient Education Materials: Shortness of Breath (ED) Referrals: Niru Bermudez MD [Primary Care Provider] - Additional Instructions: Return to the ED for any new or worsening symptoms. - Billing Disposition and Condition Condition: STABLE Disposition: Home
[2018-08-27 02:46] VITALS: BP 160/76
== END 2018-08-27 02:49 | disposition home or self-care (01) ==
LOC: ED 23:58
DX: R06.02 Shortness of breath (principal); R07.9 Chest pain, unspecified; I25.10 Atherosclerotic heart disease of native coronary artery without angina pectoris; K21.9 Gastro-esophageal reflux disease without esophagitis; Z85.038 Personal history of other malignant neoplasm of large intestine; E10.9 Type 1 diabetes mellitus without complications; Z79.4 Long term (current) use of insulin; I10 Essential (primary) hypertension
CPT/HCPCS: 36415; 71045; 80053; 82803; 83605; 83880; 84484; 85025; 85610; 86140; 87040; 93005; 99283

== ENCOUNTER 2018-08-27 21:12 | Emergency (ER) | payer MEDICARE ==
--- NOTE | 2018-08-27 22:02 | ED ---
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 She reports coming into the ED for SOB yesterday and was discharged this morning. Her activities director scouting claims that something isnt right because she had SOB after eating lunch today and her O2 Sat dropped to 85 after walking her dog. Exertion aggravates her SOB. At triage she rated her pain as a 0/10 in severity, claiming that she doesnt have any pain. She denies abdominal pain, CP, dizziness, lightheadedness, cough, edema or any recent falls. She denies a Hx of asthma, CHF or emphysema. She reports a SHx of heart surgery in April 2018. Vital signs while in room - HR: 60 bpm, O2 Sat: 92, BP: 152/63 - History of Current Complaint Chief Complaint: EDShortnessOfBreath Time Seen by Provider: 08/27/18 21:42 Hx Obtained From: Patient, Family/Cut Out And Marking Machine Operator Onset/Duration: Sudden Onset, Lasting Days, Still Present Timing: Intermittent Episodes Lasting: - upon exertion Current Severity: Mild Dyspnea At: Exertion Aggrevating Factors: Movement Alleviating Factors: Oxygen Associated Signs & Symptoms: Negative - abd pain, CP, dizziness, lightheadedness , falls, cough, edema - Allergy/Home Medications Allergies/Adverse Reactions: Allergies Allergy/AdvReac Type Severity Reaction Status Date / Time brimonidine [From Combigan] Allergy Dizziness Verified 08/27/18 21:21 codeine Allergy GI Upset Verified 08/27/18 21:21 hydralazine Allergy Difficulty Verified 08/27/18 21:21 Breathing timolol [From Combigan] Allergy Dizziness Verified 08/27/18 21:21 PMH/Surg Hx/FS Hx/Imm Hx Endocrine/Hematology History: Reports: Hx Diabetes - Type I, insulin dependent, diagnosed late s, early 1999 Cardiovascular History: Reports: Hx Coronary Artery Disease - listed in select visits, Hx Hypertension - controlled with medication, Other Cardiovascular Problems/Disorders - 2006 ?, bypass surgery GI History: Reports: Hx Gastroesophageal Reflux Disease History: Reports: Other Problems/Disorders - 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 bypass surgery 2006 approx. Hx Anesthesia Reactions: No Infectious Disease History: No Infectious Disease History: Denies: Traveled Outside the [place] in Last 30 Days - Family History Known Family History: Positive: Unknown - Pt denies knowledge of family history. - Social History Alcohol Use: Rare Alcohol Amount: only a toast 1-2 x a year, occas. a beer in the summer Hx Substance Use: No Substance Use Type: Reports: None Hx Tobacco Use: No Smoking Status (MU): Never Smoked Tobacco Review of Systems Negative: Fever Negative: Chest Pain Positive: Shortness Of Breath. Negative: Cough Negative: Abdominal Pain Negative: Edema Neurological: Negative - dizziness, lightheadedness All Other Systems Reviewed And Are Negative: Yes Physical Exam - Summary Physical Exam Summary: Appearance: Well-appearing, Well-nourished, lying in bed comfortably Skin: Warm, dry, no obvious rash Eyes: sclera anicteric, no conjunctival pallor ENT: mucous membranes moist, pharynx appears normal Neck: Supple, nontender Respiratory: Bibasilar crackles in her lungs Cardiovascular: Normal S1, S2. No murmurs. Normal distal pulses in tibial and radial bilaterally. Abdomen: Soft, nontender, normal active bowel sounds present Musculoskeletal: Normal, Strength/ROM Intact Neurological: A&Ox3, awake and alert, mentation is normal, speech is fluent and appropriate Psychiatric: affect is normal, does not appear anxious or depressed Triage Information Reviewed: Yes Vital Signs On Initial Exam: Initial Vitals Temp Pulse Resp BP Pulse Ox 97.9 F 62 16 157/67 94 08/27/18 21:15 08/27/18 21:15 08/27/18 21:15 08/27/18 21:15 08/27/18 21:15 Vital Signs Reviewed: Yes Diagnostics - Vital Signs Vital Signs Temp Pulse Resp BP Pulse Ox 08/27/18 21:15 97.9 F 62 16 157/67 94 - Laboratory Result Diagrams: 08/27/18 22:03 08/27/18 22:03 Lab Statement: Any lab studies that have been ordered have been reviewed, and results considered in the medical decision making process. - Radiology CXR Radiology Interpretation Completed By: ED Physician Summary of Radiographic Findings: No acute process. Pending official imaging report. - CT chest/thorax CTA CT Interpretation Completed By: Radiologist Summary of CT Findings: 1. No acute pulmonary embolic disease. 2. No pulmonary consolidation. No pneumothorax or pleural effusion. 3. No aortic aneurysm. 4. Focal hypodensity located in the dome of the right lobe liver. This may. represent a cyst versus a hemangioma. 5. 4 mm nodule located in the periphery of the left lower lung. No other. pulmonary nodules.For patients at low risk ( minimal or absent history of. smoking and of other known risk factors), no routine follow-up is indicated. For patients at high risk (history of smoking or of other known risk factors),. consider optional CT at 12 months. (Syl et al., Fleischner Society, 2017). ED physician has reviewed this imaging report. - EKG 22:42 Cardiac Rate: Other Rate - Atrial-paced rhythm at 60 bpm Summary of EKG Findings: EKG at 22:42 showed Atrial-paced rhythm at 60 bpm, P waves, QRS complex, and T waves are within normal limits, T waves and intervals are normal, no ischemic changes. Course/Dx - Course Course Of Treatment: An 87 y/o female accompanied by her activities director scouting presents to [facility] with a chief complaint of intermittent SOB since one day ago. The physical exam revealed bibasilar crackles in her lungs. EKG at 22:42 showed Atrial-paced rhythm at 60 bpm, P waves, QRS complex, and T waves are within normal limits, T waves and intervals are normal, no ischemic changes. In the ED course the patient was given Iodixanol (contrast) IV. Chest/thorax CTA impression: 1. No acute pulmonary embolic disease. 2. No pulmonary consolidation. No pneumothorax or pleural effusion. 3. No aortic aneurysm. 4. Focal hypodensity located in the dome of the right lobe liver. This may. represent a cyst versus a hemangioma. 5. 4 mm nodule located in the periphery of the left lower lung. No other. pulmonary nodules.For patients at low risk ( minimal or absent history of. smoking and of other known risk factors), no routine follow-up is indicated. For patients at high risk (history of smoking or of other known risk factors),. consider optional CT at 12 months. (Syl et al., Fleischner Society, 2017) Bloodwork and chemistries obtained. D-dimer 663 at 22:03. The patient was assessed several times during the course of her ED stay and never appeared to manifest any signs of hypoxia or air hunger. We did a fairly extensive evaluation including CTA of the chest and have not found any immediately worrisome problem. She does not have any signs of an acute coronary syndrome. She was able to get up and ambulate with her pulse oximetry staying above 92%. She does not appear especially breathless with this either. I think at this point she is safe to return home and follow up with her doctor for further evaluation of her dyspnea. - Diagnoses Provider Diagnoses: Dyspnea on exertion Discharge - Sign-Out/Discharge Documenting (check all that apply): Patient Departure - DC Patient Received Moderate/Deep Sedation with Procedure: No - Discharge Plan Condition: Good Disposition: HOME Patient Education Materials: Dyspnea (ED) Referrals: Niru Bermudez MD [Primary Care Provider] - Additional Instructions: All of the tests we did today including blood work looking at your heart, xrays and CT scans to check your lungs, all look ok, and your oxygen level is good, even when you are up and around. I am not sure what is causing your symptoms, but we have not found anything immediately worrisome. Contact your doctor in the am for further instructions, and if you start to feel worse we are always here and would want to check you again. - Billing Disposition and Condition Condition: GOOD Disposition: Home - Attestation Statements Document Initiated by Travis: Yes Documenting Scribe: Timbo Milner Provider For Whom Travis is Documenting (Include Credential): Kelvin Coburn MD Scribe Attestation: Timbo Mujica, scribed for Kelvin Coburn MD on 08/28/18 at 0224. Scribe Documentation Reviewed: Yes Provider Attestation: The documentation as recorded by the Timbo swenson accurately reflects the service I personally performed and the decisions made by me, Kelvin Coburn MD Status of Scribe Document: Viewed
[2018-08-27 22:09] LABS: ABS Basophils 0.1 10^3/ul (0-0.2); ABS Eosinophils 0.3 10^3/ul (0-0.6); ABS Lymphocytes 1.4 10^3/ul (1.0-4.8); ABS Monocytes 0.7 10^3/ul (0-0.8); ABS Neutrophils 5.1 10^3/ul (1.5-7.7); ABS Nucleated RBC 0 10^3/ul; Eosinophil % 3.6 %; Hematocrit 40 % (35-47); Hemoglobin 12.9 g/dl (12.0-16.0); Lymphocyte % 18.1 %; Mean Corpuscular HGB Conc 33 g/dl (31-36); Mean Corpuscular Hemoglobin 29 pg (27-31); Mean Corpuscular Volume 90 fL (80-97); Mean Platelet Volume 8.4 fL (7.4-10.4); Nucleated Red Blood Cells % 0.1; Platelet Count 221 10^3/ul (150-450); Red Blood Count 4.42 10^6/ul (4.00-5.40); Red Cell Distribution Width 14 % (10.5-15); White Blood Count 7.6 10^3/ul (3.5-10.8)
[2018-08-27 22:27] LABS: Albumin 3.8 g/dL (3.2-5.2); Albumin/Globulin Ratio 1.4 (1-3); BUN/Creatinine Ratio 25.5 (8-20); Calcium 9.1 mg/dL (8.6-10.3); EGFR African American 37.7 (>60); EGFR Non-African American 31.2 (>60); Globulin 2.7 g/dL (2-4); Potassium 4.9 mmol/L (3.5-5.0); Total Bilirubin 0.4 mg/dL (0.2-1.0); Total Protein 6.5 g/dL (6.4-8.9)
[2018-08-27 22:29] LABS: Troponin I 0.01 ng/mL (<0.04)
[2018-08-27] MEDS ORDERED: Iodixanol* (CONTRAST) 320 MG/ML 100 ML SDV IV ONE (23:36)
[2018-08-28 02:04] VITALS: BP 164/65
== END 2018-08-28 02:04 | disposition home or self-care (01) ==
LOC: ED 21:12
DX: R06.00 Dyspnea, unspecified (principal); R06.02 Shortness of breath; I25.10 Atherosclerotic heart disease of native coronary artery without angina pectoris; E10.9 Type 1 diabetes mellitus without complications; Z79.4 Long term (current) use of insulin; K21.9 Gastro-esophageal reflux disease without esophagitis; Z85.038 Personal history of other malignant neoplasm of large intestine
CPT/HCPCS: 36415; 71046; 71275; 80053; 83880; 84484; 85025; 85379; 93005; 99282; Q9967

== ENCOUNTER 2018-08-29 08:44 | Observation (INO) | payer MEDICARE ==
--- NOTE | 2018-08-29 09:04 | ED ---
Shortness of Breath - HPI Summary HPI Summary: An 87 y/o female presents to [facility] with a chief complaint of SOB this morning with movement. She denies any pain, rating her pain as a 0/10 in severity. The patient has been in the ED multiple times over the last four days and has been discharged. Per drug regulatory affairs specialist, the patient has already gotten a CXR, CT and MRI. Her drug regulatory affairs specialist reports right foot edema and new left sided weakness this morning. The drug regulatory affairs specialist is concerned because she claims that the patients O2 gets low on exertion. She has a Hx of CHF. Vital signs while in room HR: 60bpm , O2 Sat: 92, BP: 158/65. - History of Current Complaint Chief Complaint: EDShortnessOfBreath Time Seen by Provider: 08/29/18 08:49 Hx Obtained From: Patient Onset/Duration: Sudden Onset, Lasting Days, Still Present Timing: Intermittent Episodes Lasting: - upon exertion Current Severity: Mild Dyspnea At: Exertion Aggrevating Factors: Movement Alleviating Factors: Nothing Associated Signs & Symptoms: Edema - Allergy/Home Medications Allergies/Adverse Reactions: Allergies Allergy/AdvReac Type Severity Reaction Status Date / Time brimonidine [From Combigan] Allergy Dizziness Verified 08/29/18 08:49 codeine Allergy GI Upset Verified 08/29/18 08:49 hydralazine Allergy Difficulty Verified 08/29/18 08:49 Breathing timolol [From Combigan] Allergy Dizziness Verified 08/29/18 08:49 Home Medications: Home Medications Humulin R 100/Ml 5 units SUBCUT QPM 08/29/18 [History Confirmed 08/29/18] Humulin R 100/Ml 9 units SUBCUT QAM 08/29/18 [History Confirmed 08/29/18] Insulin NPH Human Isophane [Humulin N Kwikpen] 9 units SUBCUT QPM 08/29/18 [ History Confirmed 08/29/18] Insulin NPH Human Isophane [Humulin N Kwikpen] 10 units SUBCUT QAM 08/29/18 [ History Confirmed 08/29/18] Multivitamins/Minerals TAB* [Theragran/minerals TAB*] 1 tab PO DAILY 08/29/18 [ History Confirmed 08/29/18] Potassium Chloride [Klor-Con 8] 8 meq PO DAILY 08/29/18 [History Confirmed 08/29] PMH/Surg Hx/FS Hx/Imm Hx Endocrine/Hematology History: Reports: Hx Diabetes - Type I, insulin dependent, diagnosed late , early 1999 Cardiovascular History: Reports: Hx Coronary Artery Disease - listed in select visits, Hx Hypertension - controlled with medication, Other Cardiovascular Problems/Disorders - 2007 ?, bypass surgery GI History: Reports: Hx Gastroesophageal Reflux Disease History: Reports: Other Problems/Disorders - 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 bypass surgery 2006 approx. Hx Anesthesia Reactions: No Infectious Disease History: No Infectious Disease History: Denies: Traveled Outside the [place] in Last 30 Days - Family History Known Family History: Positive: Unknown - Pt denies knowledge of family history. - Social History Alcohol Use: Rare Alcohol Amount: only a toast 1-2 x a year, occas. a beer in the summer Hx Substance Use: No Substance Use Type: Reports: None Hx Tobacco Use: No Smoking Status (MU): Never Smoked Tobacco Review of Systems Negative: Fever Negative: Chest Pain Positive: Shortness Of Breath Negative: Abdominal Pain Positive: Edema Positive: Weakness All Other Systems Reviewed And Are Negative: Yes Physical Exam - Summary Physical Exam Summary: Appearance: The patient is well-nourished in no acute distress and in no acute pain. Skin: The skin is warm and dry and skin color reflects adequate perfusion. HEENT: The head is normocephalic and atraumatic. The pupils are equal and reactive. The conjunctivae are clear and without drainage. Nares are patent and without drainage. Mouth reveals moist mucous membranes and the throat is without erythema and exudate. The external ears are intact. The ear canals are patent and without drainage. The tympanic membranes are intact. Neck: The neck is supple with full range of motion and non-tender. There are no carotid bruits. There is no neck vein distension. Respiratory: Chest is non-tender. Crackles bilaterally at bases. Cardiovascular: Heart is regular rate and rhythm. Systolic ejection murmur. Pulses are symmetrical and equal. Abdomen: The abdomen is soft and non-tender. There are normal bowel sounds heard in all four quadrants and there is no organomegaly palpated. Musculoskeletal: There is no back tenderness noted. Extremities are non-tender with full range of motion. There is good capillary refill. Mild pitting edema right foot. There is no calf tenderness elicited. Neurological: Patient is alert and oriented to person, place and time. The patient has symmetrical motor strength in all four extremities. Cranial nerves are grossly intact. Deep tendon reflexes are symmetrical and equal in all four extremities. Psychiatric: The patient has an appropriate affect and does not exhibit any anxiety or depression. Triage Information Reviewed: Yes Vital Signs On Initial Exam: Initial Vitals Temp Pulse Resp BP Pulse Ox 97.1 F 58 18 145/51 95 08/29/18 08:46 08/29/18 08:46 08/29/18 08:46 08/29/18 08:46 08/29/18 08:46 Vital Signs Reviewed: Yes - Andrew Coma Scale Best Eye Response: 4 - Spontaneous Best Motor Response: 6 - Obeys Commands Best Verbal Response: 5 - Oriented Coma Scale Total: 15 Diagnostics - Vital Signs Vital Signs Temp Pulse Resp BP Pulse Ox 08/29/18 08:46 97.1 F 58 18 145/51 95 - Laboratory Result Diagrams: 08/29/18 09:54 08/29/18 09:54 Lab Statement: Any lab studies that have been ordered have been reviewed, and results considered in the medical decision making process. - Radiology CXR Radiology Interpretation Completed By: Radiologist Summary of Radiographic Findings: POSTSURGICAL CHANGES, NO EVIDENCE FOR ACUTE FINDING. ED physician has reviewed this imaging report. - CT Brain CT Interpretation Completed By: Radiologist Summary of CT Findings: NO ACUTE INTRACRANIAL PATHOLOGY. CHRONIC SMALL VESSEL ISCHEMIC CHANGE. ED physician has reviewed this imaging report. - EKG 10:08 Cardiac Rate: Other Rate - Atrial-paced rhythm at 60 bpm EKG Comparison: No Significant Change Summary of EKG Findings: EKG at 10:08 showed Atrial-paced rhythm at 60 bpm, unchanged from previous EKG done 08/27/18. Re-Evaluation - Re-Evaluation First Eval Re-Evaluation Time: 15:43 Change: Unchanged Comment: Discussed results. Informed them about Dr. Patel consult. Course/Dx - Course Course Of Treatment: Ms. Jaime presented for the third time in about 36 hours. Apparently her aide found her today complaining of shortness of breath with a pulse ox in the 80s. She was also apparently weak on the left side at that time. She denies those complaints on arrival to the emergency department. She was nontoxic in appearance and stable. She presented the exact same way about 24 hours ago and was worked up including a CTA of her chest. The weakness seems to be a new complaint. Chest x-ray and labs were obtained and unremarkable here. A CT scan of her brain was also obtained. Dr. Patel was consulted because of the weakness. It's unclear to me whether this is a symptom that needs to be worked up for possible TIA. He felt that whatever was causing her brief hypoxic episodes was likely causing transient cerebral ischemia leading to the neurological findings. He recommended the hospitalist consult. The hospitalists were consult and came to see the patient and discharged her. - Diagnoses Provider Diagnoses: Dyspnea - Physician Notifications Discussed Care of Patient With: Gonsalo Patel Time Discussed With Above Provider: 12:32 Instructed by Provider To: Will See In ED Discharge - Sign-Out/Discharge Documenting (check all that apply): Patient Departure All imaging exams completed and their final reports reviewed: Yes Patient Received Moderate/Deep Sedation with Procedure: No - Discharge Plan Condition: Stable Disposition: HOME - Billing Disposition and Condition Condition: STABLE Disposition: Home - Attestation Statements Document Initiated by Travis: Yes Documenting Scribe: Timbo Milner Provider For Whom Travis is Documenting (Include Credential): MD Marcin Sharifibdaron Attestation: I, Timbo Milner, scribed for Kelvin Stiles MD on 08/29/18 at 1833. Scribe Documentation Reviewed: Yes Provider Attestation: The documentation as recorded by the Timbo swenson accurately reflects the service I personally performed and the decisions made by me, Kelvin Stiles MD Status of Scribe Document: Viewed Consult Consult: At 16:[address] Patel, who recommended admission after evaluating the patient. At 16:[address] Noble, hospitalist, who will consult with the patient.
[2018-08-29 10:10] LABS: ABS Basophils 0.1 10^3/ul (0-0.2); ABS Eosinophils 0.2 10^3/ul (0-0.6); ABS Monocytes 0.5 10^3/ul (0-0.8); ABS Neutrophils 4.9 10^3/ul (1.5-7.7); ABS Nucleated RBC 0 10^3/ul; Eosinophil % 3.4 %; Hematocrit 38 % (33-41); Hemoglobin 12.7 g/dL (12.0-16.0); Lymphocyte % 14.8 %; Mean Corpuscular HGB Conc 33 g/dL (31-36); Mean Corpuscular Hemoglobin 29 pg (27-31); Mean Corpuscular Volume 89 fL (80-97); Mean Platelet Volume 8.6 fL (7.4-10.4); Nucleated Red Blood Cells % 0; Platelet Count 226 10^3/uL (150-450); Red Blood Count 4.33 10^6 /uL (3.70-4.87); Red Cell Distribution Width 14 % (10.5-15); White Blood Count 6.7 10^3/uL (3.5-10.8)
[2018-08-29 10:16] LABS: INR 0.9 (0.77-1.02)
[2018-08-29 10:29] LABS: ALT 11 U/L (7-52); AST 14 U/L (13-39); Albumin 3.8 g/dL (3.2-5.2); Albumin/Globulin Ratio 1.4 (1-3); Alkaline Phosphatase 62 U/L (34-104); Anion Gap 6 mmol/L (2-11); BUN/Creatinine Ratio 29.2 (8-20); Blood Urea Nitrogen 40 mg/dL (6-24); C Reactive Protein < 1.00 mg/L (<8.01); CO2 Carbon Dioxide 28 mmol/L (22-32); Calcium 9.2 mg/dL (8.6-10.3); Chloride 102 mmol/L (101-111); EGFR African American 44.1 (>60); EGFR Non-African American 36.5 (>60); Globulin 2.7 g/dL (2-4); Glucose 278 mg/dL (70-100); Potassium 4.6 mmol/L (3.5-5.0); Sodium 136 mmol/L (135-145); Total Protein 6.5 g/dL (6.4-8.9)
[2018-08-29 10:30] LABS: Troponin I 0.01 ng/mL (<0.04)
[2018-08-29] MEDS ORDERED: Insulin REGULAR(*) 1 UNITS UNIT SUBCUT ONE (15:02)
[2018-08-29] MEDS ORDERED: Albuterol/Ipratropium NEB.SOL* Albuterol 2.5 MG/Ipratropium 0.5 MG 3 ML INH PRN (17:05)
[2018-08-29] MEDS ORDERED: Acetaminophen TAB* 325 MG PO PRN (17:05)
[2018-08-29] MEDS ORDERED: Ondansetron INJ* 2 MG/ML VIAL IV PRN (17:05)
[2018-08-29] MEDS ORDERED: Magnesium Hydroxide LIQ* 30 ML UDC PO PRN (17:05)
[2018-08-29] MEDS ORDERED: Dextrose 50% Syringe 50 ML* 25 GM/50 ML SYRINGE IV PUSH PRN (17:11)
[2018-08-29] MEDS ORDERED: Atorvastatin* 20 MG TAB PO SCH (19:30)
--- NOTE | 2018-08-29 20:26 | HP ---
AMENDED REPORT NOW INCLUDES DESIGNATED COSIGNER CC: Dr. Niru Bermudez; Dr. Gonsalo Patel, Neurology * ADMISSION HISTORY AND PHYSICAL: DATE OF ADMISSION: 08/29/18 ATTENDING PHYSICIAN: Dr. Julia Higgins.* (DICTATED BY ISRAEL LAZARO, FATUMA) PRIMARY CARE PROVIDER: Dr. Niru Bermudez. CHIEF OF COMPLAINT: Shortness of breath x3 days. HISTORY OF PRESENT ILLNESS: This is a pleasant 87-year-old female patient who has had multiple visits to the ER over the last 3 days for complaint of dyspnea with mild exertion. Her family and caregiver from home endorse that the patient has been having some shortness of breath when lying flat and also with ambulating short distances. She did have an appointment with her primary care provider today just to enquire about having pulmonary function tests because she feels like she needs oxygen at home, which she has never needed before. She does not have a diagnosis of COPD now or in the past. She does have significant cardiac history. She did have some symptomatic bradycardia and pacemaker insertion back in April and her echo then did show some diastolic dysfunction. So, over the course of the last 3 days, patient came to the emergency department 3 times with this complaint of dyspnea; however, her exam has been consistently negative and she has not had any desaturations while here in the emergency department. Her aide who is a nurse did record her O2 saturation at 83% with ambulation while she was at home. Patient returned to the emergency department again because there was also some talk of potential right-sided deficit, some weakness, and some bilateral lower extremity pitting edema +1. For these reasons, we were asked to evaluate the patient for admission. PAST MEDICAL HISTORY: Patient's past medical history is significant for coronary artery disease, insulin-dependent diabetes, diastolic dysfunction, hypertension, hyperlipidemia, colon cancer; in remission, diabetic retinopathy. PAST SURGICAL HISTORY: She had 4-vessel CABG in the past as well as pacemaker insertion in April. HOME MEDICATIONS: Include: 1. Aspirin 81 mg daily. 2. Multivitamin 1 tablet daily. 3. Zocor 40 mg in the evening. 4. K-Chlor 8 mEq daily. 5. Triamterene/hydrochlorothiazide 1 cap p.o. in the morning. 6. Metoprolol tartrate 25 mg p.o. b.i.d. 7. NPH insulin 9 units subcu in the evening and 10 units subcu in the a.m. 8. Regular insulin between 5 and 9 units premeal. 9. Lisinopril 10 mg in the morning. ALLERGIES: Patient has allergies to BRIMONIDINE, CODEINE, HYDRALAZINE, and TIMOLOL. FAMILY HISTORY: Her father had cardiac disease and diabetes. Mother lived to the age of 97. SOCIAL HISTORY: Patient does not smoke, but she has had significant exposure to secondhand smoke over the years. Does not drink alcohol. She does live by herself. She has [id number] aides. Her surrogate decision maker is her daughter, Nita, who is currently at bedside. REVIEW OF SYSTEMS: Patient denies any fever, fatigue, or chills. No headache. She does have poor vision and is legally blind, but this is her baseline. She denies any chest pain. No shortness of breath while in the ER now; however, she has not ambulated. No nausea, no vomiting, no abdominal pains. No arthralgias or myalgias. She does endorse lower extremity edema and no further constitutional complaints. PHYSICAL EXAMINATION GENERAL: Patient is awake, alert, well appearing, in no acute distress. VITAL SIGNS: Blood pressure 127/47, heart rate 60, O2 saturation 93% on room air, respirations 16, and temperature is 97.1. HEENT: Patient is atraumatic and normocephalic. She does have erythema to the upper and lower lids of the right eye and into the sclerae. This is her baseline. She has PERRLA. Otherwise, nonicteric sclerae. Oral mucosa is moist. Tongue is midline. Dentition is intact. NECK: Supple. Nontender. No carotid bruits auscultated. No JVD noted. LUNGS: Clear bilaterally to auscultation with no wheezing, rhonchi, or rales. Mildly diminished at the bases. CARDIOVASCULAR: S1, S2 present. Rate and rhythm are regular. She is currently paced on telemetry. ABDOMEN: Soft, nontender, nondistended. Hypoactive bowel sounds noted. No organomegaly noted. GENITOURINARY: Deferred. MUSCULOSKELETAL: No clubbing and no cyanosis. She has +1 edema bilaterally of the ankles and feet. She has brisk cap refill. Full range of motion. Gross motor and sensation are intact. NEUROLOGIC: Grossly intact. No focal deficits. PSYCHIATRIC: She is cooperative and appropriate. DIAGNOSTIC STUDIES/LAB DATA: Labs: WBC 6.7, RBC is 4.33, hemoglobin 12.7, hematocrit 38, platelets 226. Sodium 136, potassium 4.6, chloride 102, CO2 of 28, BUN 40, creatinine 1.37, GFR is 36.5, glucose 278, lactic acid 1.9, calcium 9.2, bilirubin 0.50. LFTs are normal. Troponin is negative at 0.01. CRP is less than 1. BNP is 68. Protein 6.5, albumin 3.8, globulin 2.7. INR 0.90. Imaging: CAT scan of the brain shows no acute intracranial pathology. There are some chronic small-vessel ischemic changes. Chest x-ray shows poststernotomy and bypass surgical changes. Heart is within normal limits in size. There is a dual- chamber transvenous pacemaker present. Lungs are underinflated, but clear. There is some elevation of the left hemidiaphragm. There are no pleural effusions seen. IMPRESSION: This is an 87-year-old female patient with complex medical history who presents with 3 days of progressive dyspnea with exertion. PLAN: Patient will be admitted to observation. 1. Shortness of breath. Although the patient did not have any true desaturations while she was in the ER, she did have 1 recording of 89% on room air. While this would not qualify her for home oxygen, I think it would be warranted to do walking saturations with her on room air. Patient probably does need pulmonary function tests as an outpatient. At this point, the chest is clear. She does not require any antibiotics. I will give her DuoNebs as needed and incentive spirometry for pulmonary toilet. Being that the patient does have significant ischemic heart disease and she was endorsing having trouble lying flat and becoming dyspneic with lying flat, we will repeat an echocardiogram of the heart and assess both systolic and diastolic function. If there are any changes, we will involve cardiology to evaluate the patient as well. 2. Transient right-sided deficits. Patient has been seen by Dr. Gonsalo Patel. He does not feel any further workup is needed. The CAT scan of her brain is negative and her symptoms have resolved. It does not appear that she has had a TIA or a CVA. Please refer to Dr. Patel's full consultation regarding her neurologic status. 3. For her history of diabetes, we will place her on lispro sliding scale for now. Consistent carbohydrate, heart-healthy diet with Accu-Cheks a.c. and h.s. 4. History of coronary artery disease. She is on aspirin, statin, and a beta lucy. These will be continued. 5. History of hypertension. She is on beta lucy and lisinopril. She is also on triamterene. These will also be continued and we will continue her potassium supplementation. 6. Hyperlipidemia. She is on statin. 7. History of colon cancer. Stable. 8. History of diabetic retinopathy. She is currently at her baseline. 9. DVT prophylaxis. She will be on heparin subcutaneous. 10. Code status is full. The rest of the patient's course will be determined by further diagnostics, laboratories, and any other input from other providers as warranted during this admission. TIME SPENT: Approximately 65 minutes interviewing the patient, evaluating previous records, and implementing plan of care. This plan of care has been discussed with Dr. Julia Higgins, who is in agreement. DISPOSITION: Admit to observation telemetry. ISRAEL LAZARO NP [id number]/[facility] [place] #: [id number] ELLIOTT
--- NOTE | 2018-08-29 20:35 | CONS ---
NEUROLOGY CONSULTATION: DATE OF CONSULT: 08/29/18 REFERRING PHYSICIAN: Dr. Stiles. PRIMARY CARE PROVIDER: Dr. Brasher. LOCATION: She is in the emergency room. CHIEF COMPLAINT: Shortness of breath, left-sided weakness. HISTORY OF PRESENT ILLNESS: Renee Jaime is a very sindi 87-year-old right-handed woman who has presented to the emergency room this morning with shortness of breath and some weakness. She has been to the emergency room 3 times in the last week or so. She gets short of breath and her nurse aide who accompanies her today, reports that she checks her oxygen saturations and she gets numbers down to 83. She does not use oxygen at home. This has been going on for about a week, although she said some episodes in the past of shortness of breath. She had a pacemaker placed last April and she was doing pretty well after that. It is only the last week that she gets shortness of breath with minimal exertion. Once she sits down in rests, it usually comes back up. She has been to the emergency room 3 times and at least twice when she has been walked and had her oxygen saturations checked here, they have been not normal. This morning, when she was evaluated by her nurse, who arrived in the morning, she was short of breath coming out of the bathroom. She seemed to be dragging her left leg somewhat. She sat her down and tested her strength and she thought that the left arm and leg were a little weak. By the time they got her into the hospital, it had resolved. They have not noticed focal weakness before. There is no history of stroke. Her CT of the brain, however, is reviewed and there are multifocal low density patches in the deep white matter consistent with ischemic events. PAST MEDICAL HISTORY: Notable for diabetes, glaucoma, legal blindness, pacemaker, history of colon cancer, hyperlipidemia, coronary artery disease. MEDICATIONS AT HOME: Consist of: 1. Aspirin 81 mg p.o. daily. 2. Insulin. 3. Simvastatin 40 mg p.o. daily. 4. Multivitamins. 5. Metoprolol 25 mg p.o. b.i.d. 6, Lisinopril 10 mg p.o. daily. 7. Dyazide 1 p.o. q.a.m. ALLERGIES: She is allergic to HYDRALAZINE, which cause difficulty breathing. She had dizziness to TIMOLOL. CODEINE upset her stomach. REVIEW OF SYSTEMS: Negative for falls. She ambulates independently within her home and has aides at night. She knows where all the furniture as she has lived there over 50 years and is able to ambulate despite of her low vision. There has been no recent infections or fevers. She has had a dry cough ever since she was intubated for pacemaker last fall. Her weight is pretty stable. She does not smoker and does not drink alcohol. PHYSICAL EXAM: She is well nourished and well hydrated. Blood pressure is 127/ 47, heart rate is 60 and paced on the monitor, respiratory rate is 16 and oxygen saturation is 93% on room air Heart tones are distant but here are no murmurs. There are no cervical bruits. Oral mucosa is moist and atraumatic. Neurological Exam: Pupils are fairly fixed and the left cornea is clouded. She can see light only out of the left eye. She can see some shadows and shapes out of the right eye, but cannot finger count. Eye movements seemed generally full. Facial musculature is symmetric. Facial sensation to light touch is diminished in the left cheek relative to the right, but symmetrical along the chin and forehead on both sides. Facial musculature is normal. She is a bit hard of hearing. Palate and tongue appear normal, tongue protrudes in the midline and there is no dysarthria. Motor exam reveals good strength proximally and distally in the upper and lower extremities. There is no drift of any limb. There is a little bit of stiffness in both legs but no spastic catches. Sensation to light touch is reported as symmetric in the legs and hands. Finger taps are symmetrical in the hands as well. There is no rest tremor. Reflexes are grade 2 at biceps and knees, absent at ankles. Plantar responses are flexor bilaterally. She is awake and alert and oriented. She is able to provide good history. Memory seems intact and language is fluent. LABORATORY DATA: Includes a CT of the brain described in the history of present illness. Chest x-ray interpretation showing postoperative changes with sternotomy and coronary artery bypass surgery. A pacemaker is noted Lungs are described as clear and under inflated. There is also focal elevation of the left hemidiaphragm, which is unchanged. CBC is normal. Chemiatry profile is notable for creatinine of 1.37 and BUN of 40, which is stable compared to historical norms. Glucose this morning is 278, which is a little higher than her usual glucoses drawn here in the hospital. The rest of the chemiatry profile is unremarkable. IMPRESSION AND PLAN: Ms. Jaime is having mainly shortness of breath with desaturation, but today also had some transient left-sided weakness. It apparently occurred just when she had desaturated and not passed at that time. 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 I do not think she is having a primary cerebrovascular problem, but rather primary cardiopulmonary problem. I have discussed my impression with Renee and her daughter and nurse aide. I discussed my impression with Dr. Stiles, who is going to determine whether not further testing or admission is needed. [id number]/[facility] #: [id number] MTDD
[2018-08-29] MEDS: Metoprolol Tartrate TAB* 25 MG PO SCH (21:18)
[2018-08-29] MEDS: Docusate CAP* 100 MG PO SCH (21:18)
[2018-08-29] MEDS: Insulin LISPRO* 1 UNITS UNIT SUBCUT SCH (21:25)
[2018-08-29] MEDS: Heparin VIAL(*) 5000 UNITS/ML VIAL (FIVE THOUSAND) SUBCUT SCH (21:26)
[2018-08-30] MEDS: Heparin VIAL(*) 5000 UNITS/ML VIAL (FIVE THOUSAND) SUBCUT SCH (05:37)
[2018-08-30 07:05] LABS: ABS Basophils 0.1 10^3/ul (0-0.2); ABS Eosinophils 0.3 10^3/ul (0-0.6); ABS Lymphocytes 1.4 10^3/ul (1.0-4.8); ABS Monocytes 0.5 10^3/ul (0-0.8); ABS Neutrophils 4.1 10^3/ul (1.5-7.7); ABS Nucleated RBC 0 10^3/ul; Eosinophil % 4.9 %; Hematocrit 40 % (33-41); Hemoglobin 13.1 g/dL (12.0-16.0); Lymphocyte % 21.2 %; Mean Corpuscular HGB Conc 33 g/dL (31-36); Mean Corpuscular Hemoglobin 29 pg (27-31); Mean Corpuscular Volume 89 fL (80-97); Mean Platelet Volume 8.5 fL (7.4-10.4); Nucleated Red Blood Cells % 0.1; Platelet Count 219 10^3/uL (150-450); Red Blood Count 4.53 10^6 /uL (3.70-4.87); Red Cell Distribution Width 14 % (10.5-15); White Blood Count 6.4 10^3/uL (3.5-10.8)
[2018-08-30 07:26] LABS: BUN/Creatinine Ratio 27.6 (8-20); Calcium 9.3 mg/dL (8.6-10.3); EGFR African American 45.3 (>60); EGFR Non-African American 37.4 (>60); Potassium 4.6 mmol/L (3.5-5.0)
[2018-08-30] MEDS: Metoprolol Tartrate TAB* 25 MG PO SCH (07:50)
[2018-08-30] MEDS: Docusate CAP* 100 MG PO SCH (07:50)
[2018-08-30] MEDS: Insulin LISPRO* 1 UNITS UNIT SUBCUT SCH (07:51)
[2018-08-30 08:06] VITALS: BP 140/57
[2018-08-30] MEDS ORDERED: Potassium Chlor TAB* 10 MEQ TAB.ER PO SCH (09:00)
[2018-08-30] MEDS ORDERED: Triamterene/HCTZ 37.5-25 MG* CAP PO SCH (09:00)
[2018-08-30] MEDS ORDERED: Multivitamins/Minerals TAB PO SCH (09:00)
[2018-08-30] MEDS ORDERED: Lisinopril TAB* 10 MG PO SCH (09:00)
[2018-08-30] MEDS ORDERED: Aspirin 81 mg CHEW TAB* 81 MG TAB.CHEW PO SCH (09:00)
--- NOTE | 2018-08-30 12:43 | DS ---
CC: Dr. Bermudez; Dr. Little DISCHARGE SUMMARY: DATE OF ADMISSION: 08/29/18 DATE OF DISCHARGE: 08/30/18 HOSPITAL COURSE: This 87-year-old woman presenting with shortness of breath that has been intermitte nt. She has been to the emergency room a number of times. This episode occurred when she woke up in the morning on the day of admission. Other episodes were in the evening before she went to bed and after going to the bathroom. She was hypoxic on testing at home. In the emergency room, her testing was normal even with ambulation. She has had a number of studies including a CTA of the chest on , chest x-ray, and CT scan of the brain. She had a permanent pacemaker implanted by Dr. Little on 05/13/18. No intervention really was done. She was continued on her usual medications. O2 saturation was 95% at rest and 94% with ambulation on room air. She felt fine on the day of discharge. No complaints. She has no cough. I considered a number of possibilities to explain her intermittent hypoxia. She gets short of breath with these episodes and a panic attack gently would not lower your oxygen saturations, but might naomy n raise your oxygen saturation. Mucus plugging might explain her picture, but she does not have coug h or any mucous production. Sleep apnea is a possibility that could possible explain the episode whe n she woke up but not the episodes when she had not been to bed. An arrhythmia would not be expected to present in this way either, although it is certainly worth interrogating her pacemaker to see wha t her heart function and pacemaker function were during these episodes. An echocardiogram was consid ered but could not be done on the day of this admission, but could be done as an outpatient. FINAL DIAGNOSES: 1. Dyspnea and hypoxia of uncertain cause. 2. Coronary artery disease with coronary artery bypass graft in the past and pacemaker insertion in April 2018. 3. Diabetes. 4. Hypertension. DISCHARGE MEDICATIONS: 1. Triamterene and hydrochlorothiazide 37.5/25 one daily. 2. Simvastatin 40 mg in the evening. 3. Metoprolol 25 mg b.i.d. 4. Aspirin 81 mg daily. 5. Lisinopril 10 mg daily. 6. Multivitamin with minerals daily. 7. Potassium 8 mEq daily. 8. Humulin insulin NPH 10 units in the morning and 9 units at night. 9. Humulin R 5 units in the evening and 9 units in the morning. CONDITION ON DISCHARGE: Stable. DISPOSITION ON DISCHARGE: Discharged home. FOLLOWUP: I am recommending she contact Dr. Little for full interrogation of her pacemaker and to con tact Dr. Bermudez to discuss scheduling echocardiogram, sleep lab study, and pulmonary function testing as an outpatient. I know that she has had exposure to second hand smoke. [id number]/[facility] #: [id number]
== END 2018-08-30 11:35 | disposition home or self-care (01) ==
LOC: ED 08:44 → MEDTELE 17:05
PROVIDERS: ADMIT Internal Medicine; ATTEND Internal Medicine
DX: R06.00 Dyspnea, unspecified (principal); R09.02 Hypoxemia; I25.10 Atherosclerotic heart disease of native coronary artery without angina pectoris; Z95.5 Presence of coronary angioplasty implant and graft; E11.9 Type 2 diabetes mellitus without complications; I10 Essential (primary) hypertension; Z79.82 Long term (current) use of aspirin; R06.02 Shortness of breath; Z79.4 Long term (current) use of insulin; Z85.038 Personal history of other malignant neoplasm of large intestine; R60.9 Edema, unspecified
CPT/HCPCS: 36415; 70450; 71045; 80048; 80053; 83605; 83880; 84484; 85025; 85610; 86140; 87040; 93005; 96372; 99285; A9270-GY; G0378; J1644

== ENCOUNTER 2018-12-15 11:33 | Emergency (ER) | payer MEDICARE ==
[2018-12-15 12:11] VITALS: BP 115/46
--- NOTE | 2018-12-15 13:06 | UC ---
General HPI - HPI Summary HPI Summary: 88-year-old female presents with family member reporting 1 week history of elevated blood sugars. Family member states that she saw her application support technician, Dr. Mills, a little over a week ago and her blood sugars were very good running in the low 100's. For past week now her sugars have been running in the high 200 's to low 300's. Her application support technician recommended that she be evaluated for a possible infection. Patient does report some urinary frequency and burning with urination. Denies fever, chills, ear pain, sore throat, nasal congestion, cough , chest pain, SOB, abdominal pain, nausea, vomiting, diarrhea, hematuria, vaginal discharge, or rash. - History of Current Complaint Chief Complaint: UCGeneralIllness Stated Complaint: ELEVATED SUGAR Time Seen by Provider: 12/15/18 12:23 Hx Obtained From: Patient, Family/Domestic Housekeeper Pain Intensity: 0 - Allergy/Home Medications Allergies/Adverse Reactions: Allergies Allergy/AdvReac Type Severity Reaction Status Date / Time brimonidine [From Combigan] Allergy Dizziness Verified 12/15/18 12:11 codeine Allergy GI Upset Verified 12/15/18 12:11 hydralazine Allergy Difficulty Verified 12/15/18 12:11 Breathing timolol [From Combigan] Allergy Dizziness Verified 12/15/18 12:11 PMH/Surg Hx/FS Hx/Imm Hx - Additional Past Medical History Additional PMH: Diabetic retinopathy Endocrine History: Diabetes, Dyslipidemia Cardiovascular History: Cardiac Disease, Hypertension, Atrial Fibrillation GI/ History: Renal Disease Other History Of: Negative For: Anticoagulant Therapy - Surgical History Surgical History: Yes Surgery Procedure, Year, and Place: colon CA, late . bypass surgery 2006 approx. - Family History Known Family History: Positive: Unknown - Pt denies knowledge of family history. - Social History Occupation: Retired Lives: With Family Alcohol Use: Rare Alcohol Amount: only a toast 1-2 x a year, occas. a beer in the summer Substance Use Type: None Smoking Status (MU): Never Smoked Tobacco - Immunization History Most Recent Influenza Vaccination: 2007 Most Recent Pneumonia Vaccination: 05/11/18 Review of Systems All Other Systems Reviewed And Are Negative: Yes Constitutional: Positive: Fatigue. Negative: Fever, Chills Skin: Negative: Rash Eyes: Negative: Drainage, Eye Redness ENT: Negative: Sore Throat, Ear Ache, Nasal Discharge, Sinus Congestion, Sinus Pain/Tenderness Respiratory: Negative: Shortness Of Breath, Cough Cardiovascular: Negative: Palpitations, Chest Pain Gastrointestinal: Negative: Abdominal Pain, Vomiting, Diarrhea, Nausea Genitourinary: Positive: Dysuria, Frequency. Negative: Hematuria, Urgency, Vaginal/Penile Discharge Musculoskeletal: Positive: Negative Neurological: Positive: Negative Is Patient Immunocompromised?: No Physical Exam - Summary Physical Exam Summary: GENERAL APPEARANCE: Alert and cooperative older adult female who appears to be in no acute distress. EYES: Conjunctiva clear. No drainage. EARS: External auditory canals and tympanic membranes clear, hearing grossly intact. NOSE: No nasal discharge. THROAT: Pharynx normal. No tonsilar inflammation, swelling, exudate, or lesions. Uvula midline. NECK: Neck supple, non-tender without lymphadenopathy. CARDIAC: Normal S1 and S2. No S3, S4 or murmurs. Rhythm is regular. There is no peripheral edema, cyanosis or pallor. Extremities are warm and well perfused. Capillary refill is less than 2 seconds. Peripheral pulses intact. LUNGS: Clear to auscultation without rales, rhonchi, wheezing or diminished breath sounds. ABDOMEN: Positive bowel sounds. Soft, nondistended, nontender. No guarding or rebound. No masses or hepatosplenomegally. No CVA tenderness. MUSKULOSKELETAL: ROM intact to all extremities. No joint erythema or tenderness. Normal muscular development. Normal gait. SKIN: Skin normal color, texture and turgor with no lesions or eruptions. Triage Information Reviewed: Yes Vital Signs: Initial Vital Signs Temp 98.2 F 12/15/18 12:06 Pulse 59 12/15/18 12:06 Resp 18 12/15/18 12:06 BP 115/46 12/15/18 12:06 Pulse Ox 95 12/15/18 12:06 Vital Signs Reviewed: Yes Course/Dx - Course Course Of Treatment: 88-year-old female presents with family member reporting 1 week history of elevated blood sugars. Family member states that she saw her application support technician, Dr. Mills, a little over a week ago and her blood sugars were very good running in the low 100's. For past week now her sugars have been running in the high 200 's to low 300's. Her application support technician recommended that she be evaluated for a possible infection. Patient does report some urinary frequency and burning with urination. Denies fever, chills, ear pain, sore throat, nasal congestion, cough , chest pain, SOB, abdominal pain, nausea, vomiting, diarrhea, hematuria, vaginal discharge, or rash. Afebrile. VSS. POC fingerstick glucose 271. Exam was over all unremakable. POC UA showed 3+ leukocyte esterase, 2+ blood, 2+ protein. Urine culture is pending. Will treat her for a UTI with ciprofloxacin 500 mg BID x 7 days. She is to follow up with her PCP in 3 days for recheck of symptoms. Anticipatory guidance and warning symptoms were reviewed with the patient and family member. Verbalize understanding and agree with POC. - Differential Dx - Multi-Symptom Differential Diagnoses: Urinary Tract Infection, Other - Hyperglycemia, Sepsis - Diagnoses Provider Diagnosis: UTI (urinary tract infection), Elevated blood sugar Discharge - Sign-Out/Discharge Documenting (check all that apply): Patient Departure All imaging exams completed and their final reports reviewed: No Studies - Discharge Plan Condition: Stable Disposition: HOME Prescriptions: Ciprofloxacin HCl 500 mg PO BID #14 tablet Patient Education Materials: Urinary Tract Infection in Women (ED) Referrals: Niru Bermudez MD [Primary Care Provider] - 3 Days Additional Instructions: Your urine test in the clinic today is suggestive of a urinary tract infection. We will start you on an antibiotic to treat for the infection. We will also send a urine culture today to see what bacteria grow out and make sure the antibiotic you were prescribed is appropriate to treat the infection. It will take 48-72 hours to get these results. We will contact you if there is any change in your treatment plan. Start ciprofloxacin 500 mg twice a day for 7 days. Drink plenty of fluids. To help prevent urinary tract infections: 1) Be sure to wipe from front to back. 2) Make sure you are completely emptying your bladder each time you urinate. 3) Avoid taking bubble baths. Follow up with your primary care provider in 3 days if symptoms persist. Call today for an appointment. Seek immediate medical attention in the emergency room if you develop fever greater than 100.5 F, have severe abdominal pain, persistent vomiting, or any worsening of symptoms. - Billing Disposition and Condition Condition: STABLE Disposition: Home
== END 2018-12-15 13:10 | disposition home or self-care (01) ==
LOC: UCEAST 11:33
DX: N39.0 Urinary tract infection, site not specified (principal); B96.20 Unspecified Escherichia coli [E. coli] as the cause of diseases classified elsewhere; E11.319 Type 2 diabetes mellitus with unspecified diabetic 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; I10 Essential (primary) hypertension
CPT/HCPCS: 81003; 87077; 87086; 87186; 99212; G0463

== ENCOUNTER 2019-05-01 10:15 | Emergency (ER) | payer MEDICARE ==
[2019-05-01 10:26] VITALS: BP 188/90
--- NOTE | 2019-05-01 10:58 | UC ---
Dizzy HPI HPI Summary: ONSET YESTERDAY OF DIZZINESS AND SHORTNESS OF BREATH. SYMPTOMS WORSE WHEN SHE CHANGES POSITION OR EXERTS HERSELF. DENIES CHEST PAIN, NAUSEA, SWEATS. - History Of Current Complaint Chief Complaint: UCDizziness Stated Complaint: DIZZY Time Seen by Provider: 05/01/19 10:19 Hx Obtained From: Patient, Family/Edi Manager - AIDE Onset/Duration: Sudden Onset, Lasting Days, Still Present Severity Initially: Moderate Severity Currently: Moderate Pain Intensity: 0 Pain Scale Used: 0-10 Numeric Character: Dizzy Aggravating Factor(s): Exertion, Supine To Erect Alleviating Factor(s): Rest Associated Signs And Symptoms: Positive: SOB. Negative: Nausea, Diaphoresis, Chest Pain, Palpitations, Unsteady Gait - Allergies/Home Medications Allergies/Adverse Reactions: Allergies Allergy/AdvReac Type Severity Reaction Status Date / Time brimonidine [From Combigan] Allergy Dizziness Verified 05/01/19 10:26 codeine Allergy GI Upset Verified 05/01/19 10:26 hydralazine Allergy Difficulty Verified 05/01/19 10:26 Breathing timolol [From Combigan] Allergy Dizziness Verified 05/01/19 10:26 Home Medications: Home Medications Bimatoprost 0.01% OPHTH (NF) [Lumigan 0.01% OPHTH (NF)] 1 drop BOTH EYES DAILY 05/01/19 [History Confirmed 05/01/19] Brimonid/Timolol 0.2/0.5%(NF) [Combigan 0.2/0.5% (NF)] 1 drop BOTH EYES DAILY [History Confirmed 05/01/19] PMH/Surg Hx/FS Hx/Imm Hx - Additional Past Medical History Additional PMH: BLIND Endocrine History: Diabetes Cardiovascular History: Cardiac Disease - STENT, Hypertension Cancer History: Colorectal Cancer Other History Of: Negative For: Anticoagulant Therapy - Surgical History Surgical History: Yes Surgery Procedure, Year, and Place: colon CA, late . bypass surgery 2006 approx. - Family History Known Family History: Positive: Unknown - Pt denies knowledge of family history. - Social History Alcohol Use: Rare Alcohol Amount: only a toast 1-2 x a year, occas. a beer in the summer Substance Use Type: None Smoking Status (MU): Never Smoked Tobacco - Immunization History Most Recent Influenza Vaccination: 2007 Most Recent Pneumonia Vaccination: 05/11/18 Review of Systems All Other Systems Reviewed And Are Negative: Yes Constitutional: Positive: Negative Respiratory: Positive: Shortness Of Breath Cardiovascular: Positive: Negative Gastrointestinal: Positive: Negative Neurological: Positive: Other - DIZZY Physical Exam Triage Information Reviewed: Yes Appearance: Well-Appearing, No Pain Distress, Well-Nourished Vital Signs: Initial Vital Signs Temp 97.7 F 05/01/19 10:21 Pulse 56 05/01/19 10:21 Resp 20 05/01/19 10:21 BP 188/90 05/01/19 10:21 Pulse Ox 97 05/01/19 10:21 Vital Signs Reviewed: Yes Eyes: Positive: Conjunctiva Clear ENT: Positive: Hearing grossly normal Neck: Positive: Supple Respiratory Exam: Normal Cardiovascular Exam: Normal Abdomen Description: Positive: Nontender, Soft Bowel Sounds: Positive: Present Musculoskeletal: Positive: No Edema Neurological: Positive: Alert Psychological: Positive: Age Appropriate Behavior Skin: Negative: Rashes Diagnostics - EKG Cardiac Rate: NL Ectopy: PVCs ST Segment: Normal - ATRIAL PACED, OLD ANTEROSEPTAL INFARCT Dizzy Course/Dx - Course Course Of Treatment: 88-YEAR-OLD PATIENT WITH POSTURAL DIZZINESS, SHORTNESS OF BREATH AND DANGEROUSLY ELEVATED BLOOD PRESSURE. HAS A HISTORY OF CARDIAC STENTING. PATIENT REQUIRES HIGHER LEVEL OF SERVICE THAN WHAT IS AVAILABLE IN THE URGENT CARE. TO [facility] ER BY PRIVATE CAR. PT OFFERED TRANSPORT TO THE ER BY AMBULANCE BUT DECLINES. ADVISED THAT BY NOT TRAVELING IN A MONITORED SETTING SHE COULD BE RISKING WORSENING OF HER CONDITION THAT COULD POSE A THREAT TO HER LIFE, HEALTH AND MEDICAL SAFETY. SHE VERBALIZES UNDERSTANDING AND CONTINUES TO DECLINE AMBULANCE TRANSFER. - Differential Dx/Diagnosis Provider Diagnosis: Postural dizziness, Hypertension, Hypertensive crisis Discharge ED - Sign-Out/Discharge Documenting (check all that apply): Patient Departure All imaging exams completed and their final reports reviewed: No Studies - Discharge Plan Condition: Stable Disposition: HOME Patient Education Materials: Hypertensive Crisis (ED), Dizziness (ED) Referrals: Niru Bermudez MD [Medical Doctor] - If Needed Additional Instructions: GO DIRECTLY TO THE [facility] ER FROM HERE FOR FURTHER EVALUATION. YOU HAVE DECLINED TRANSFER TO THE ER BY AMBULANCE. BE ADVISED THAT BY NOT TRAVELING IN A MONITORED SETTING YOU COULD BE RISKING WORSENING OF YOUR CONDITION THAT COULD POSE A THREAT TO YOUR LIFE, HEALTH AND MEDICAL SAFETY. - Billing Disposition and Condition Condition: STABLE Disposition: Home
== END 2019-05-01 10:56 | disposition home or self-care (01) ==
LOC: UCEAST 10:15
DX: I16.9 Hypertensive crisis, unspecified (principal); I10 Essential (primary) hypertension; R42 Dizziness and giddiness; E11.9 Type 2 diabetes mellitus without complications; R06.02 Shortness of breath; Z88.8 Allergy status to other drugs, medicaments and biological substances; Z88.5 Allergy status to narcotic agent; Z95.5 Presence of coronary angioplasty implant and graft
CPT/HCPCS: 99212; G0463

== ENCOUNTER 2019-05-01 11:17 | Observation (INO) | payer MEDICARE ==
--- NOTE | 2019-05-01 11:35 | ED ---
Hypertension - HPI Summary HPI Summary: 88 year old F arriving to [facility] from [facility] via private car accompanied by daughter, son, and at home caregiver complains of hypertensive crisis at [facility] prior to arrival. Hx HTN. Blood pressure taken at home with cuff has been normal. Patient wasn't feeling well 2 days ago during dinner per daughter. Swelling in bilateral feet 2 days ago per caregiver. Has needed assistance ambulating over last several days per caregiver which is unusual for patient. Complains of persistent dizziness aggravated by standing and shortness of breath onset x1 day. Was seen at [facility] today for these sx where she had hypertension and was referred to the ED for further evaluation. Patient denies fever, chills, erythema of eyes, sore throat, chest pain, cough, abdominal pain, nausea/vomiting, dysuria, hematuria, myalgia, rash , headache. The patient rates the pain 0/10 in severity. Symptoms aggravated by nothing. Symptoms alleviated by nothing. Medications reviewed. States she took her medications today. Hx diabetes. BG 132 this morning, 178 last night. Started seeing geospatial scientist 1 year ago for first time per son. - History of Current Complaint Chief Complaint: EDHypertension Stated Complaint: HIGH BLOOD PRESSURE AND DIZZY PER PT Time Seen by Provider: 05/01/19 11:28 Hx Obtained From: Patient, Family/Defence Intelligence Analyst - daughter, caregiver Onset/Duration: Started Days Ago, Still Present Timing: Constant Aggravating Factor(s): Other: - standing Alleviating Factor(s): Nothing Associated Signs & Symptoms: Negative - fever, chills, erythema of eyes, sore throat, chest pain, cough, abdominal pain, nausea/vomiting, dysuria, hematuria, myalgia, rash, headache, Other: - swelling in bilateral feet, dizziness, shortness of breath - Allergies/Home Medications Allergies/Adverse Reactions: Allergies Allergy/AdvReac Type Severity Reaction Status Date / Time brimonidine [From Combigan] Allergy Dizziness Verified 05/01/19 10:26 codeine Allergy GI Upset Verified 05/01/19 10:26 hydralazine Allergy Difficulty Verified 05/01/19 10:26 Breathing timolol [From Combigan] Allergy Dizziness Verified 05/01/19 10:26 Home Medications: Home Medications Bimatoprost 0.01% OPHTH (NF) [Lumigan 0.01% OPHTH (NF)] 1 drop BOTH EYES DAILY 05/01/19 [History Confirmed 05/01/19] Brimonid/Timolol 0.2/0.5%(NF) [Combigan 0.2/0.5% (NF)] 1 drop BOTH EYES DAILY [History Confirmed 05/01/19] Insulin NPH(*) 9 units SUBCUT QPM 05/01/19 [History Confirmed 05/01/19] Insulin NPH(*) 10 units SUBCUT QAM 05/01/19 [History Confirmed 05/01/19] Insulin REGULAR(TPN)* 5 units SUBCUT QPM 05/01/19 [History Confirmed 05/01/19] Insulin REGULAR(TPN)* 9 units SUBCUT QAM 05/01/19 [History Confirmed 05/01/19] Varicella-Zoster GE/AS01B/PF [Shingrix Vial Kit*] 50 mcg IM ONCE 05/01/19 [ History Confirmed 05/01/19] PMH/Surg Hx/FS Hx/Imm Hx Endocrine/Hematology History: Reports: Hx Diabetes - Type I, insulin dependent, diagnosed late , early 1999 Denies: Hx Anticoagulant Therapy, Hx Blood Disorders, Hx Blood Transfusions, Hx Sickle Cell Disease, Hx Unexplained Bleeding Cardiovascular History: Reports: Hx Coronary Artery Disease - listed in select visits, Hx Hypertension - controlled with medication, Other Cardiovascular Problems/Disorders - 2006 ?, bypass surgery Comment Only: Hx Auto Implanted Cardiovert Defib - yy Respiratory History: Denies: Hx Chronic Obstructive Pulmonary Disease (COPD), Hx Lung Cancer, Hx Pleural Effusion, Hx Pulmonary Edema, Hx Pulmonary Embolism, Hx Sleep Apnea GI History: Reports: Hx Gastroesophageal Reflux Disease Denies: Hx Gastrointestinal Bleed, Hx Irritable Bowel, Hx Pyloric Stenosis, Hx Ulcer Comment Only: Other GI Disorders - Colon CA History: Reports: Other Problems/Disorders - 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 Denies: Hx Acute Renal Failure, Hx Benign Prostatic Hyperplasia, Hx Chronic Renal Failure, Hx Kidney Infection, Hx Kidney Stones Musculoskeletal History: Denies: Hx Arthritis, Hx Back Problems, Hx Congenital Bone Abnormalities, Hx Orthopedic Injury, Hx Osteoporosis Sensory History: Reports: Hx Cataracts - had surgery bi-lat, unsure of dates, Hx Legally Blind Denies: Hx Contacts or Glasses - legally blind, Hx Eye Injury, Hx Glaucoma, Hx Macular Degeneration, Hx Deafness, Hx Hearing Aid, Hx Hearing Problem Opthamlomology History: Reports: Hx Cataracts - had surgery bi-lat, unsure of dates, Hx Legally Blind Denies: Hx Contacts or Glasses - legally blind, Hx Eye Injury, Hx Glaucoma, Hx Macular Degeneration Neurological History: Reports: Hx Dementia - MILD, Hx Headaches Denies: Hx Spinal Cord Injury, Hx Transient Ischemic Attacks (TIA) Psychiatric History: Denies: Hx Anxiety, Hx Oppositional Hawthorne Disorder, Hx Depression, Hx Panic Disorder, Hx Post Traumatic Stress Disorder, Hx Inpatient Treatment, Hx Bipolar Disorder - Cancer History Cancer Type, Location and Year: 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 bypass surgery 2006 approx. Hx Anesthesia Reactions: No - Immunization History Date of Influenza Vaccine: UTD Infectious Disease History: No Infectious Disease History: Denies: Hx Clostridium Difficile, Hx Hepatitis, Hx of Known/Suspected MRSA, Hx Shingles, Hx Tuberculosis, Hx Known/Suspected VRE, Hx Known/Suspected VRSA, Traveled Outside the [place] in Last 30 Days - Family History Known Family History: Positive: Cardiac Disease, Diabetes - Social History Alcohol Use: Rare Hx Substance Use: No Substance Use Type: Reports: None Hx Tobacco Use: No Smoking Status (MU): Never Smoked Tobacco Review of Systems Negative: Fever, Chills Negative: Erythema Positive: Other - hypertension. Negative: Chest Pain Positive: Shortness Of Breath. Negative: Cough Negative: Abdominal Pain, Vomiting, Nausea Negative: dysuria, hematuria Positive: Other - swelling in bilateral feet. Negative: Myalgia Negative: Rash Neurological: Other - Dizziness All Other Systems Reviewed And Are Negative: Yes Physical Exam - Summary Physical Exam Summary: Constitutional: Well-developed, Well-nourished, Alert. (-) Distressed Skin: Warm, Dry HENT: Normocephalic; Atraumatic Eyes: Conjunctiva normal Neck: Musculoskeletal ROM normal neck. (-) JVD, (-) Stridor, (-) Tracheal deviation Cardio: Rhythm regular, rate normal, Heart sounds normal; Intact distal pulses; The pedal pulses are 2+ and symmetric. Radial pulses are 2+ and symmetric. (-) Murmur Pulmonary/Chest wall: Effort normal. (-) Respiratory distress, (-) Wheezes, (-) Rales Abd: Soft, (-) tenderness, (-) Distension, (-) Guarding, (-) Rebound Musculoskeletal: (-) Edema Lymph: (-) Cervical adenopathy Neuro: Alert, Oriented x3 Psych: Mood and affect Normal GCS: 15 Triage Information Reviewed: Yes Vital Signs On Initial Exam: Initial Vitals Temp Pulse Resp BP Pulse Ox 97.3 F 61 16 216/91 95 05/01/19 11:20 05/01/19 11:20 05/01/19 11:20 05/01/19 11:20 05/01/19 11:20 Vital Signs Reviewed: Yes Procedures - Sedation Patient Received Moderate/Deep Sedation with Procedure: No Diagnostics - Vital Signs Vital Signs Temp Pulse Resp BP Pulse Ox 05/01/19 11:20 97.3 F 61 16 216/91 95 - Laboratory Result Diagrams: 05/01/19 11:47 05/01/19 11:47 Lab Statement: Any lab studies that have been ordered have been reviewed, and results considered in the medical decision making process. - CT Brain CT Interpretation Completed By: Radiologist Summary of CT Findings: NO ACUTE INTRACRANIAL PATHOLOGY. DIFFUSE INVOLUTIONAL CHANGE WITH CHRONIC SMALL VESSEL ISCHEMIC CHANGES. ED physician has reviewed this report. - EKG 1137 Cardiac Rate: NL - 60 BPM Re-Evaluation - Re-Evaluation First Eval Re-Evaluation Time: 14:41 Comment: updated on results. agrees to admission Hypertension Course/Dx - Course Course Of Treatment: 88 year old F arriving from [facility] via private car complains of hypertensive crisis at [facility] prior to arrival. Hx HTN. Has had persistent dizziness and shortness of breath onset x1 day, seen at [facility] earlier today for these sx where she had hypertension and was referred to the ED for further evaluation. Physical exam findings: unremarkable. Bloodwork results with no significant abnormalities except for BUN 43, creatinine 1.53, BUN/creatinine 28.1. An EKG shows rate of [address] Brain shows, per radiologist: NO ACUTE INTRACRANIAL PATHOLOGY. DIFFUSE INVOLUTIONAL CHANGE WITH CHRONIC SMALL VESSEL ISCHEMIC CHANGES. In the ED course, patient was given lisinopril 10 mg PO. The patient has persistent hypertension here despite being on oral metoprolol, she has a heart rate of 60. She is symptomatic. We'll hold off on any additional acute management of blood pressure due to her relatively low blood pressure also a listed allergy of hydralazine. Deferring further blood pressure management to the hospitalist service. Dr. Odonnell, hospitalist, agrees to admit patient. - Diagnoses Provider Diagnoses: Hypertensive emergency - Physician Notifications Discussed Care Of Patient With: Yen Odonnell Time Discussed With Above Provider: 14:23 Instructed by Provider To: Admit As Inpatient - Critical Care Time Critical Care Time: 30-74 min - 35 minutes Discharge ED - Sign-Out/Discharge Documenting (check all that apply): Patient Departure - Discharge Plan Condition: Stable Disposition: ADMITTED TO [facility] - Billing Disposition and Condition Condition: STABLE Disposition: Admitted to [facility] - Attestation Statements Document Initiated by Scribe: Yes Documenting Scribe: Mary Galan Provider For Whom Travis is Documenting (Include Credential): Noe Mancera MD Scribe Attestation: Mary Mujica, scribed for Noe Mancera MD on 05/05/19 at 1025. Scribe Documentation Reviewed: Yes Provider Attestation: The documentation as recorded by the scribeMary accurately reflects the service I personally performed and the decisions made by me, Noe Mancera MD Status of Scribe Document: Viewed
[2019-05-01 12:05] LABS: ABS Basophils 0.1 10^3/ul (0-0.2); ABS Eosinophils 0.3 10^3/ul (0-0.6); ABS Lymphocytes 1.2 10^3/ul (1.0-4.8); ABS Monocytes 0.5 10^3/ul (0-0.8); ABS Neutrophils 4.3 10^3/ul (1.5-7.7); Eosinophil % 4.2 %; Hematocrit 42 % (35-47); Hemoglobin 13.9 g/dL (12.0-16.0); Lymphocyte % 18.9 %; Mean Corpuscular HGB Conc 33 g/dL (31-36); Mean Corpuscular Hemoglobin 29 pg (27-31); Mean Corpuscular Volume 90 fL (80-97); Mean Platelet Volume 8.6 fL (7.4-10.4); Nucleated Red Blood Cells % 0.1; Platelet Count 213 10^3/uL (150-450); Red Blood Count 4.73 10^6 /uL (3.70-4.87); Red Cell Distribution Width 13 % (10-15); White Blood Count 6.4 10^3/uL (3.5-10.8)
[2019-05-01 12:25] LABS: Albumin/Globulin Ratio 1.3 (1-3); BUN/Creatinine Ratio 28.1 (8-20); Calcium 9.8 mg/dL (8.6-10.3); EGFR African American 38.8 (>60); Globulin 3.1 g/dL (2-4); Magnesium 1.9 mg/dL (1.9-2.7); Potassium 4.6 mmol/L (3.5-5.0); Total Bilirubin 0.4 mg/dL (0.2-1.0); Total Protein 7.1 g/dL (6.4-8.9)
[2019-05-01 12:26] LABS: Troponin I 0.01 ng/mL (<0.04)
[2019-05-01 12:55] LABS: TSH (Thyroid Stimulating Horm) 1.81 mcIU/mL (0.34-5.60)
[2019-05-01] MEDS ORDERED: Lisinopril TAB* 10 MG PO ONE (14:25)
[2019-05-01] MEDS ORDERED: Enalaprilat IV* 1.25 MG/ML 2 ML VIAL (2.5 MG) IV ONE (14:28)
[2019-05-01] MEDS ORDERED: Dextrose 50% VIAL 50 ml IV PUSH PRN (15:26)
[2019-05-01] MEDS ORDERED: Acetaminophen TAB* 325 MG PO PRN (15:29)
[2019-05-01 17:45] LABS: Urine Appearance Clear; Urine Bilirubin Negative (Negative); Urine Blood Negative (Negative); Urine Color Yellow; Urine Glucose 1+(50 mg/dL) (Negative); Urine Ketones Negative (Negative); Urine Nitrite Negative (Negative); Urine Protein Negative (Negative); Urine Specific Gravity 1.013 (1.010-1.030); Urine Urobilinogen Negative (Negative)
[2019-05-01] MEDS: NS 0.9% 1000 ML** 1,000 ML IV SCH (18:11)
--- NOTE | 2019-05-01 18:32 | HP ---
CC: Dr. Rosa; Dr. Little * HISTORY AND PHYSICAL: DATE OF ADMISSION: 05/01/19 PRIMARY CARE PROVIDER: Dr. Rosa. BEEF CATTLE FARMER: Dr. Little. CHIEF COMPLAINT: Dizziness. HISTORY OF PRESENT ILLNESS: Renee Jaime is an 88-year-old female with history of diabetic retinopathy so bad that she is legally blind, who ambulates in her house that she had been living in for 50 years without any problems or need of assistance, who was noted 2 days ago to have episodes of dizziness especially when she stands up. The patient stated that she feels lightheaded when she had been standing up and today in the morning when she went to [facility] to have it evaluated when she was getting out of the car she was lightheaded also. The patient's family had been checking her blood pressure at home with a portable blood pressure machine and apparently, her systolic pressures had been in the 120s. Nevertheless then when she was seen in [facility], her systolic pressures went to 190s to 200s. Due to that and due to symptoms of dizziness, the patient was transferred to the ED department for further evaluation. Here she was noted during my evaluation to have positive orthostatic hypotension. Her systolic pressures went into 170s when she was sitting down, but it went down to 130 when she stood up. The patient has pacemaker in place and is pacemaker dependent and her heart rate had been in the 60s and mostly paced during that time. The patient is going to be placed on overnight observation with a diagnosis of orthostatic hypotension. Of note, the patient is being seen today accompanied by her daughter, son and the supervisor of operations. They all stated the patient had not been drinking enough liquids and she has to be "forced" to drink 2 cups of liquid a day. PAST MEDICAL HISTORY: 1. History of sick sinus syndrome, status post pacemaker placement. 2. History of hypertension. 3. Coronary artery disease, status post coronary bypass grafting. 4. Chronic kidney disease stage 3 due to diabetes. 5. History of diabetic retinopathy significant to the point of patient being legally blind. 6. Diabetes type 2 insulin dependent. 7. History of diastolic dysfunction. 8. Hypertension. 9. Hyperlipidemia. 10. History of colon cancer in remission, status post colectomy in 1998. 11. History of melanoma removal on the right cheek in the past. 12. Cataract surgery in 2002. MEDICATIONS AT HOME: Include: 1. Insulin NPH 10 units in a.m. 2. Lumigan eye drops to both eyes daily. 3. Combigan 1 drop both eyes daily. Please also note that the patient takes Combigan despite that that TIMOLOL is on her allergy list. 5. Aspirin 81 mg daily. 6. Simvastatin 40 mg daily. 7. Potassium chloride 80 mEq daily. 8. Metoprolol tartrate 25 mg b.i.d. 9. Dyazide 37.5/25 one tablet is daily. 10. Insulin NPH 9 units q.p.m. 11. Insulin regular 5 units q.p.m., 9 units q.a.m. 12. Lisinopril 10 mg daily. ALLERGIES: COMBIGAN, CODEINE, HYDRALAZINE and TIMOLOL. COMBIGAN and TIMOLOL eye drops caused dizziness. CODEINE causes GI upset and HYDRALAZINE, difficulty breathing. FAMILY HISTORY: Father with history of heart disease and diabetes. Mother lived until she was 97 and of "old age." SOCIAL HISTORY: The patient denies any tobacco or drug use. She denies any alcohol use. She has a history of significant secondhand smoke exposure. She lives by herself, but she has [id number] aides. Her surrogate decision maker is her daughter, Nick. In addition to that, the patient stated that she has venous stasis edema that gets markedly worse when she is up and about, but improves when she has her legs raised. She has had no chest pain and no headache. Her vision is very poor and she can see with the right eye and she can see only shadows. Her appetite has been good, but she has not been drinking enough liquids. REVIEW OF SYSTEMS: All the remaining 12 systems were reviewed with the patient and were otherwise negative. PHYSICAL EXAMINATION GENERAL: The patient is a very pleasant 88-year-old female, who is in no acute distress. Alert, awake, and oriented x3. VITAL SIGNS: Blood pressure of 194/86, heart rate of 60 and regular, respiratory rate 16, oxygen saturation 94% on room air, temperature 97.3. HEENT: Head: Atraumatic, normocephalic. Eyes: The left eye cornea cloudy with difficult to visualize pupil. The right eye pupil is distorted in shape postsurgically, poorly reactive to light. Oropharynx is clear. Mucosa moist. NECK: Supple. No JVD. No bruits bilaterally. RESPIRATORY: Clear to auscultation bilaterally. CARDIOVASCULAR: Regular rate and rhythm. No murmur. ABDOMEN: Soft, nontender. Bowel sounds are present in all 4 quadrants. EXTREMITIES: There is no edema. Pulses are +2 bilaterally. No clubbing or cyanosis. NEUROLOGIC: Speech clear. Cranial nerves II through XII grossly intact. Motor strength is 5/5 bilaterally. MUSCULOSKELETAL: On evaluation of the patient's walk and gait, the patient has a wide gait. She has no ataxia and she is fairly steady by herself, although unsure of her environment since she is blind. DIAGNOSTIC STUDIES/LAB DATA: White blood cell count of 6.4, hemoglobin of 13.9 , hematocrit 42, and platelets 213. Sodium was 140, potassium 4.6, chloride 105, carbon dioxide 30, BUN 43, creatinine 1.53. Liver function tests unremarkable. Lactic acid of 0.8. Troponin of 0.01. TSH of 1.8. Brain CT, impression: "No acute intracranial pathology. Diffuse involutional change with chronic small vessel ischemic changes." The patient's EKG showed atrial paced complex with a heart rate of 60 beats per minute with no significant ST changes. Possible subtle ST depressions in leads V4 and V5. ASSESSMENT AND PLAN: 1. Please note that the patient's blood pressures on my evaluation today showed systolic pressure of 174/71 when sitting up with a heart rate of 59 with systolic pressure of 130/79 with a heart rate of 61 standing up. The patient has orthostatic hypotension. She also has increased creatinine, which appears to be chronic. Her BUN is also increased, which also is chronic. Nevertheless , she appears slightly . She is going to be placed on intravenous fluids and we will recheck her orthostatics in the morning together with physical therapy evaluation in the morning. 2. In regards to the patient's uncontrolled hypertension. I suspect that this is response to the patient being in the hospital. From her multiple measurements of her blood pressure at home, they have been within normal limits. Restart the patient's p.o. medications and observe. 3. For the diabetes, the patient is going to be placed on her insulin NPH from home plus insulin sliding scale. 4. For DVT prophylaxis, the patient is going to be placed on heparin subcutaneously. 5. For code status, the patient is a full code and her surrogate is her daughter as mentioned above. TIME SPENT: Approximately 65 minutes were spent on the admission of this patient, more than half that time was spent [id number] with the patient during the interview and physical exam. [id number]/[facility] #: [id number] ELLIOTT
[2019-05-01] MEDS: Metoprolol Tartrate TAB* 25 MG PO SCH ×2 (19:00→21:20)
[2019-05-01] MEDS: Insulin NPH(*) 1 UNITS UNIT SUBCUT SCH (19:00)
[2019-05-01] MEDS: Insulin LISPRO* 1 UNITS UNIT SUBCUT SCH ×2 (19:00→22:12)
[2019-05-01] MEDS: Heparin VIAL(*) 5000 UNITS/ML VIAL (FIVE THOUSAND) SUBCUT SCH (21:21)
[2019-05-02] MEDS: Heparin VIAL(*) 5000 UNITS/ML VIAL (FIVE THOUSAND) SUBCUT SCH ×3 (06:23→21:26)
[2019-05-02] MEDS: Insulin LISPRO* 1 UNITS UNIT SUBCUT SCH ×4 (08:05→21:27)
[2019-05-02] MEDS: NS 0.9% 1000 ML** 1,000 ML IV SCH (09:01)
[2019-05-02] MEDS: Lisinopril TAB* 10 MG PO SCH (09:02)
[2019-05-02] MEDS: Metoprolol Tartrate TAB* 25 MG PO SCH ×2 (09:02→21:25)
[2019-05-02] MEDS: Insulin NPH(*) 1 UNITS UNIT SUBCUT SCH ×2 (09:02→17:15)
[2019-05-02] MEDS: Triamterene/HCTZ 37.5-25 MG* CAP PO SCH (09:02)
[2019-05-02] MEDS: Atorvastatin* 20 MG TAB PO SCH (09:02)
[2019-05-02] MEDS: Aspirin 81 mg CHEW TAB* 81 MG TAB.CHEW PO SCH (09:02)
[2019-05-02] MEDS: Brimonid/Timolol 0.2/0.5%(NF) 10 ML OPHTH.SOLN BOTH EYES SCH (09:03)
--- NOTE | 2019-05-02 15:27 | PN ---
Subjective Date of Service: 05/02/19 Interval History: Patient seen and examined. States she is no longer feeling dizzy, but has not been out of bed. Discussed orthostasis at length with her and family at bedside. Denies chest pain, no SOB, no fever or chills. No further complaints. Objective Active Medications: Acetaminophen (Tylenol Tab*) 650 mg PO Q4H PRN PRN Reason: PAIN-MILD/TEMP >/= 100.4 Aspirin (Aspirin 81 Mg Chew Tab*) 81 mg PO QAM [facility] Last Admin: 05/02/19 09:02 Dose: 81 mg Atorvastatin Calcium (Lipitor*) 20 mg PO DAILY [facility] Last Admin: 05/02/19 09:02 Dose: 20 mg Brimonidine/Timolol (Combigan 0.2/0.5% (Nf)) 1 drop BOTH EYES DAILY [facility] Last Admin: 05/02/19 09:03 Dose: Not Given Dextrose (Dextrose 50% Vial 50 Ml*) 25 ml IV PUSH .FOR FS < 60 - SS PRN PRN Reason: FS < 60 Heparin Sodium (Porcine) (Heparin Vial(*)) 5,000 units SUBCUT Q8HR [facility] Last Admin: 05/02/19 12:51 Dose: 5,000 units Sodium Chloride (Ns 0.9% 1000 Ml) 1,000 mls @ 100 mls/hr IV PER RATE [facility] Stop: 05/03/19 01:29 Last Admin: 05/02/19 09:01 Dose: 100 mls/hr Insulin Human Lispro (Humalog*) 0 units SUBCUT ACHS [facility]; Protocol Last Admin: 05/02/19 12:01 Dose: 4 units Insulin Human NPH (Insulin Nph(*)) 9 units SUBCUT QPM [facility] Last Admin: 05/01/19 19:00 Dose: 9 units Insulin Human NPH (Insulin Nph(*)) 10 units SUBCUT QAM [facility] Last Admin: 05/02/19 09:02 Dose: 10 units Lisinopril (Prinivil Tab*) [facility] Admin: 05/02/19 09:02 Dose: 10 mg Metoprolol Tartrate (Lopressor Tab*) 25 mg PO BID [facility] Last Admin: 05/02/19 09:02 Dose: 25 mg Triamterene/HCTZ (Dyazide Cap*) 1 cap PO [facility] Last Admin: 11/16/19 09:02 Dose: 1 cap Vital Signs - 8 hr 05/02/19 05/02/19 05/02/19 08:00 11:15 13:02 Temperature 98.1 F Pulse Rate 66 60 Respiratory 16 18 Rate Blood Pressure 135/48 132/58 (mmHg) O2 Sat by Pulse 94 Oximetry 05/02/19 15:12 Temperature Pulse Rate 60 Respiratory Rate Blood Pressure 152/53 (mmHg) O2 Sat by Pulse Oximetry Oxygen Devices in Use Now: None Appearance: alert, NAD Eyes: - - hazy corneas 2/2 blindness Ears/Nose/Mouth/Throat: Mucous Membranes Moist Neck: NL Appearance and Movements; NL JVP Respiratory: Symmetrical Chest Expansion and Respiratory Effort, Clear to Auscultation Cardiovascular: RRR - murmur noted at left sternal border Abdominal: NL Sounds; No Tenderness; No Distention Extremities: No Clubbing, Cyanosis Skin: No Rash or Ulcers Neurological: Alert and Oriented x 3 Nutrition: Taking PO's Result Diagrams: 05/01/19 11:47 05/01/19 11:47 Assess/Plan/Problems-Billing Assessment: This is an 88 year old female with hx of CAD, CABG, CKD, DMII, blindness and HTN that presents with complaints of dizziness and hypertension. - Patient Problems (1) Hypertension Code(s): I10 - ESSENTIAL (PRIMARY) HYPERTENSION SNOMED Code(s): 71488517 Comment: - Was hypertensive in ED and received enalapril IV - BP has been stable, will continue HCTZ/triamterene, lisinopril, metoprolol and monitor for further orthostasis (2) Orthostatic hypotension Code(s): I95.1 - ORTHOSTATIC HYPOTENSION SNOMED Code(s): 37324435 Comment: - Etiology unclear, per family, patient does not drink fluids regularly - Receiving IVNS, does state she feels better after IVF - Will order TEDs and recheck orthostatics - I do auscultate a murmur that I do not see documented in the record and last ECHO was in 2018, will order ECHO for tomorrow to evaluate valves (3) CKD (chronic kidney disease) stage 3, GFR 30-59 ml/min Code(s): N18.3 - CHRONIC KIDNEY DISEASE, STAGE 3 (MODERATE) SNOMED Code(s): 743220041 Comment: - Creatinine at baseline (4) Coronary artery disease Code(s): I25.10 - ATHSCL HEART DISEASE OF [place] CORONARY ARTERY W/O ANG PCTRS SNOMED Code(s): 93967374 Comment: - Continue metoprolol, aspirin, atorvastatin (5) Diabetes mellitus, type 2 Comment: - on insulin, BG stable - Has retinopathy/blindness 2/2 diabetes (6) Diabetic retinopathy Code(s): E11.319 - TYPE 2 DIABETES W UNSP DIABETIC RTNOP W/O MACULAR EDEMA SNOMED Code(s): 9730054 Comment: - Supportive care (7) DVT prophylaxis Code(s): KTD5779 - SNOMED Code(s): 606091353 Comment: - HSQ (8) Full code status Code(s): Z78.9 - OTHER SPECIFIED HEALTH STATUS SNOMED Code(s): 179346779 Status and Disposition: Obs, dispo to home when medically optimized.
[2019-05-03] MEDS: Heparin VIAL(*) 5000 UNITS/ML VIAL (FIVE THOUSAND) SUBCUT SCH ×2 (04:51→13:59)
[2019-05-03] MEDS: Triamterene/HCTZ 37.5-25 MG* CAP PO SCH (08:30)
[2019-05-03] MEDS: Atorvastatin* 20 MG TAB PO SCH (08:30)
[2019-05-03] MEDS: Lisinopril TAB* 10 MG PO SCH (08:30)
[2019-05-03] MEDS: Metoprolol Tartrate TAB* 25 MG PO SCH (08:30)
[2019-05-03] MEDS: Aspirin 81 mg CHEW TAB* 81 MG TAB.CHEW PO SCH (08:30)
[2019-05-03] MEDS: Insulin LISPRO* 1 UNITS UNIT SUBCUT SCH ×2 (08:31→12:04)
[2019-05-03] MEDS: Insulin NPH(*) 1 UNITS UNIT SUBCUT SCH (08:31)
--- NOTE | 2019-05-03 08:51 | PN ---
Subjective Date of Service: 05/03/19 Interval History: Patient seen and examined. BP stable overnight. States no dizziness, no chest pain, no SOB. Tolerating meals, no complaints. Eager to be discharged today if possible. Discussed POC with patient and her personal aid at bedside. Objective Active Medications: Acetaminophen (Tylenol Tab*) 650 mg PO Q4H PRN PRN Reason: PAIN-MILD/TEMP >/= 100.4 Aspirin (Aspirin 81 Mg Chew Tab*) [facility] [place] Admin: 05/03/19 08:30 Dose: 81 mg Atorvastatin Calcium (Lipitor*) 20 mg PO DAILY [facility] Last Admin: 05/03/19 08:30 Dose: 20 mg Brimonidine/Timolol (Combigan 0.2/0.5% (Nf)) 1 drop BOTH EYES DAILY [facility] Last Admin: 05/02/19 09:03 Dose: Not Given Dextrose (Dextrose 50% Vial 50 Ml*) 25 ml IV PUSH .FOR FS < 60 - SS PRN PRN Reason: FS < 60 Heparin Sodium (Porcine) (Heparin Vial(*)) 5,000 units SUBCUT Q8HR [facility] Last Admin: 05/03/19 04:51 Dose: 5,000 units Insulin Human Lispro (Humalog*) 0 units SUBCUT ACHS [facility]; Protocol Last Admin: 05/03/19 08:31 Dose: 2 units Insulin Human NPH (Insulin Nph(*)) 9 units SUBCUT QPM [facility] Last Admin: 05/02/19 17:15 Dose: 9 units Insulin Human NPH (Insulin Nph(*)) 10 [facility] [place] Last Admin: 05/03/19 08:31 Dose: 10 units Lisinopril (Prinivil Tab*) 10 [facility] [place] Last Admin: 05/03/19 08:30 Dose: 10 mg Metoprolol Tartrate (Lopressor Tab*) 25 mg PO BID [facility] Last Admin: 05/03/19 08:30 Dose: 25 mg Triamterene/HCTZ (Dyazide Cap*) 1 cap PO [facility] Last Admin: 05/03/19 08:30 Dose: 1 cap Vital Signs - 8 hr 05/03/19 05/03/19 05/03/19 03:16 07:15 08:00 Temperature 97.8 F 97.5 F Pulse Rate 60 60 Respiratory 18 16 16 Rate Blood Pressure 153/65 176/59 (mmHg) O2 Sat by Pulse 95 97 Oximetry Oxygen Devices in Use Now: None Appearance: alert, NAD Eyes: - - milky corneas 2/2 blindness Ears/Nose/Mouth/Throat: Mucous Membranes Moist Neck: NL Appearance and Movements; NL JVP Respiratory: Symmetrical Chest Expansion and Respiratory Effort, Clear to Auscultation Cardiovascular: RRR, - - mild murmur noted Extremities: No Edema, No Clubbing, Cyanosis Skin: No Rash or Ulcers Neurological: Alert and Oriented x 3 Nutrition: Taking PO's Result Diagrams: 05/01/19 11:47 05/01/19 11:47 Assess/Plan/Problems-Billing Assessment: This is an 88 year old female with hx of CAD, CABG, CKD, DMII, blindness and HTN that presents with complaints of dizziness and hypertension. - Patient Problems (1) Hypertension Code(s): I10 - ESSENTIAL (PRIMARY) HYPERTENSION SNOMED Code(s): 70440744 Comment: - Was hypertensive in ED and received enalapril IV - BP has been stable, will continue HCTZ/triamterene, lisinopril, metoprolol and monitor for further orthostasis (2) Orthostatic hypotension Code(s): I95.1 - ORTHOSTATIC HYPOTENSION SNOMED Code(s): 16092934 Comment: - Improved after IVF and responding well to TEDs - No orthostasis after TEDs applied - Pending ECHO today to evaluate murmur (3) CKD (chronic kidney disease) stage 3, GFR 30-59 ml/min Code(s): N18.3 - CHRONIC KIDNEY DISEASE, STAGE 3 (MODERATE) SNOMED Code(s): 753697853 Comment: - Creatinine at baseline (4) Coronary artery disease Code(s): I25.10 - ATHSCL HEART DISEASE OF [place] CORONARY ARTERY W/O ANG PCTRS SNOMED Code(s): 34405877 Comment: - Continue metoprolol, aspirin, atorvastatin (5) Diabetes mellitus, type 2 Comment: - on insulin, BG stable - Has retinopathy/blindness 2/2 diabetes (6) Diabetic retinopathy Code(s): E11.319 - TYPE 2 DIABETES W UNSP DIABETIC RTNOP W/O MACULAR EDEMA SNOMED Code(s): 6349352 Comment: - Supportive care (7) DVT prophylaxis Code(s): BDW4208 - SNOMED Code(s): 581077263 Comment: - HSQ (8) Full code status Code(s): Z78.9 - OTHER SPECIFIED HEALTH STATUS SNOMED Code(s): 191736245 Status and Disposition: Obs, dispo to home when medically optimized, likely today if no new findings on ECHO.
[2019-05-03] MEDS ORDERED: PTO: Brimonid/Timolol 0.2/0.5%(NF) 10 ML OPHTH.SOLN BOTH EYES SCH (10:44)
[2019-05-03] MEDS: Brimonid/Timolol 0.2/0.5%(NF) 10 ML OPHTH.SOLN BOTH EYES SCH (10:49)
--- NOTE | 2019-05-03 11:08 | ECHO ---
*[facility]* [place] [address] Fax #: [phone] Transthoracic Echocardiogram Patient: Renee Jaime : 1930 Study Date: 05/03/2019 Age: 88 Gender: F HR: 60 bpm Height: 64 in /162.6 cm BSA: 1.74 m^2 Weight: 151.7 lb /68.9 kg BMI: 26.1 kg/m^2 *Elementary Assistant Teacher: * Teresa Melchor RDCS RN *Referring Physician: * Madelyn Harvey *Reading Physician: Catalina Neri MD Indications: Murmur. History: Coronary artery disease. Aortic stenosis. Risk factors: Hypertension. Diabetes mellitus. Dyslipidemia. Labs, prior tests, procedures, and surgery: Permanent pacemaker system implantation. Coronary artery bypass grafting. Conclusions Summary: - Left ventricle: The cavity size is normal. Wall thickness is mildly increased. Systolic function is at the lower limits of normal. The estimated ejection fraction is 50-55%. - Right ventricle: Pacer wire noted in the right ventricle. - Ventricular septum: There is abnormal interventricular septal wall motion consistent with an RV pacemaker. - Mitral valve: There is mild regurgitation. - Aortic valve: The findings are consistent with moderate stenosis. The peak systolic velocity is 2.28 m/sec. The mean systolic gradient is 13.0 mm Hg. The peak systolic gradient is 21.0 mm Hg. The LVOT to aortic valve VTI ratio is 0.38. The valve area by the velocity-time integral method is 1.20 cm^2. The valve area by the peak velocity method is 1.26 cm^2. - Tricuspid valve: There is trace regurgitation. - Pulmonic valve: There is trace to mild regurgitation. - C/t 05/12/2018 left ventricle ejection fraction is stable. is now moderate instead of mild then. Study data: Transthoracic echocardiogram. Procedure: Transthoracic echocardiography was performed. Image quality was fair. The study was technically limited due to body habitus. Complete 2D, spectral Doppler, and color flow Doppler. Location: Bedside. Patient status: Observation. Patient room number: 414-02. Rhythm: Paced rhythm. Findings Left ventricle: The cavity size is normal. Wall thickness is mildly increased. Systolic function is at the lower limits of normal. The estimated ejection fraction is 50-55%. Wall motion is normal; there are no regional wall motion abnormalities. There is no consistent Doppler evidence of clinically significant diastolic dysfunction. Right ventricle: The cavity size is mildly dilated. Pacer wire noted in the right ventricle. Systolic function is normal. Ventricular septum: There is abnormal interventricular septal wall motion consistent with an RV pacemaker. The outflow septum has a sigmoid appearance, measuring 1.3 cm. Left atrium: The atrium is normal in size. Right atrium: The atrium is normal in size. Pacer wire noted in right atrium. Mitral valve: The Mitral valve annulus appears calcified. The leaflets are mildly thickened. There is no evidence of stenosis. There is mild regurgitation. Aortic valve: The leaflets are mild to moderately thickened with decreased excursion. The findings are consistent with moderate stenosis. There is no significant regurgitation. Tricuspid valve: Not well visualized. There is no evidence of stenosis. There is trace regurgitation. Pulmonic valve: Not well visualized. There is no evidence of stenosis. There is trace to mild regurgitation. Aorta: Aortic root: The aortic root is not dilated. Ascending aorta: The ascending aorta is not dilated. Aortic arch: The aortic arch is not dilated. Pericardium: There is no pericardial effusion. Pulmonary arteries: Not well visualized. Systolic pressure can not be accurately estimated. Systemic veins: Inferior vena cava: The vessel is normal in size. There is (>= 50%) respiratory change in the IVC dimension. Measurements Left ventricle Value Ref Aortic valve Value Ref LORA, LAX 4.4 cm 3.8 - 5.2 Con diam, ED 2.0 cm ---- ESD, LAX 3.1 cm 2.2 - 3.5 Con diam/bsa, ED 1.1 cm/m^2 ---- FS, LAX 30 % 27 - 45 Peak v, S 2.28 m/sec ---- PW, ED (H) 1.2 cm 0.6 - 0.9 VTI, S 59.2 cm ---- IVS/PW, ED 0.9 Mean grad, S 13.0 mm Hg ---- E', lat con, TDI (L) 5.9 cm/sec >=10.0 Peak grad, S 21.0 mm Hg - --- E/e', lat con, 14 LVOT/AV, VTI ratio 0.38 ---- TDI SAEED, VTI 1.20 cm^2 ---- E', med con, TDI (L) 3.9 cm/sec >=7.0 SAEED, Vmax 1.26 cm^2 - --- E/e', med con, 22 TDI Mitral valve Value Ref E', avg, TDI 4.9 cm/sec Peak E 0.84 m/sec ---- E/e', avg, TDI (H) 17 <=14 Peak A 1.17 m/sec - --- Decel time 338 ms ---- LVOT Value Ref PHT 116 ms ---- Diam, S 2.00 cm Mean grad, D 2.0 mm Hg ---- Area 3.1 cm^2 Peak grad, D 5.0 mm Hg ---- Peak norberto, S 0.92 m/sec Peak E/A ratio 0.7 ---- VTI, S 22.7 cm MVA, PHT 1.9 cm^2 ---- Mean grad, S 2 mm Hg SV 71 ml Pulmonic valve Value Ref SV/bsa 41 ml/m^2 Peak v, S 0.88 m/sec ---- Peak grad, S 3.0 mm Hg ---- Ventricular septum Value Ref IVS, ED (H) 1.0 cm 0.6 - 0.9 Aortic root Value Ref Root diam 3.3 cm <3.9 Right ventricle Value Ref LORA, LAX 3.2 cm Ascending aorta Value Ref LORA minor ax, A4C 3.4 cm 1.9 - 3.5 AAo AP diam, S 3.2 cm ---- mid Aortic arch Value Ref Left atrium Value Ref Arch diam 2.3 cm ---- AP dim, ES (H) 3.90 cm 2.70 - 3.80 Decending aorta Value Ref ML dim, A4C 3.7 cm Juan Manuel peak norberto 0.73 m/sec ---- SI dim, A4C 4.9 cm Vol/bsa, ES, 1-p 28 ml/m^2 11 - 40 Inferior vena cava Value Ref A4C Diam 1.9 cm ---- Vol/bsa, ES, A/L 30 ml/m^2 16 - 34 Right atrium Value Ref ML dim, ES, A4C 4.0 cm 2.6 - 4.4 SI dim, ES, A4C 4.6 cm 3.4 - 5.3 Estimated RAP 3 mm Hg Legend: (L) and (H) cisco values outside specified reference range. Prepared and electronically signed by Catalina Manzano MD 05/03/2019 11:08
[2019-05-03 13:03] VITALS: BP 119/59
--- NOTE | 2019-05-03 19:29 | DS ---
CC: Dr. Rosa; Dr. Torres Little * DISCHARGE SUMMARY: DATE OF ADMISSION: 05/01/19 DATE OF DISCHARGE: 05/03/19 PRIMARY CARE PROVIDER: Dr. Rosa. CARDIOLOGY: Dr. Torres Little. ATTENDING PHYSICIAN: Dr. Dawna Cole.* (DICTATED BY ISRAEL LAZARO NP) HOSPITAL COURSE: Please refer to admitting H and P on 05/01/19, but in short, Ms. Jaime is a very pleasant 88-year-old female patient with a history of legal blindness, coronary artery disease, sick sinus syndrome, chronic kidney disease, diabetic retinopathy, insulin-dependent diabetes mellitus, hypertension , hyperlipidemia, who presented in the emergency department after going to [facility] for complaints of dizziness. She was noted to be hypertensive at [facility] with diastolics in the 190s to 200s, and she was referred to the emergency department for evaluation. In the ED, however, she was noted to be having some orthostasis. Her systolic pressures were in the 170s while seated and 130s while standing. She was admitted for orthostatic hypotension. She also received captopril IV for systolic blood pressures in the 180s. Per the family's report, she also has a history of having poor free water intake. Family was very concerned about her hydration status and felt that some of her symptoms may have been related to dehydration. Again, notable for some chronic kidney disease they were concerned that this was getting worse secondary to her not staying hydrated. The patient was admitted for observation for orthostatic hypotension. She was given IV fluids, to which she responded favorably. Initially, she was given 1.25 mg of Vasotec IV in the emergency department with good response; however, she had no further episodes of accelerated hypertension during her hospitalization. She had some persistent orthostasis, however, so we continued her IV fluids. We also placed her in SEBAS stockings and discussed shifting positions more slowly. Her orthostatic vital signs did not change after SEBAS stockings were applied and after the patient was fully hydrated. Her symptoms of dizziness had completely resolved. Her blood pressure stayed quite stable over the course of her hospitalization. Her only new finding was that we had auscultated a very mild murmur, which apparently was new from previous examinations. I evaluated her echocardiogram from 2018. It did appear that she had some very mild aortic stenosis at that time. Given the constellation of symptoms she was experiencing and the fact that there was no murmur on examination on previous visits, we repeated her echocardiogram today. Her new echo did show some slight changes. Her aortic stenosis was now graded as moderate in the reading from the echo since her peak systolic velocity was 2.28 milliseconds with the mean systolic gradient of 13.0 mmHg. Peak systolic gradient is 21.0 mmHg. The LVOT to aortic valve VTI ratio is 0.38. This change does represent a shift from mild aortic stenosis to now moderate over the course of this past year. I did discuss these findings with the patient and her son and her aide who were at the bedside. I recommended to the patient that she follow up with Dr. Little as an outpatient and explained to her that this would likely represent medical management for now, but does represent a new finding. We did not change any of her home medications. I did explain to her the importance of free water intake and recommended SEBAS stockings for now and followup with Cardiology and her primary care provider as an outpatient. DISCHARGE DIAGNOSES: 1. Orthostatic hypotension likely secondary to dehydration. 2. Uncontrolled hypertension. 3. Chronic kidney disease, stage 3. 4. History of coronary artery disease. 5. Diabetes mellitus type 2, insulin dependent. 6. Diabetic retinopathy and legal blindness. DISCHARGE MEDICATIONS: Include no changes from home meds and they are: 1. NPH insulin 10 units in the morning and 9 units in the evening, and regular insulin 9 units in the morning and 5 units in the evening. 2. Lum[place] eyedrops 1 drop to both eyes daily. 3. Combigan eyedrops 1 drop to both eyes daily. 4. Aspirin 81 mg in the morning. 5. Simvastatin 40 mg p.o. daily. 6. K-Nia (potassium chloride) 8 mEq p.o. daily. 7. Metoprolol tartrate 25 mg p.o. b.i.d. 8. Triamterene and hydrochlorothiazide 37.5/25 mg 1 cap p.o. daily. 9. Lisinopril 10 mg in the morning. REVIEW OF SYSTEMS: Please refer to progress note from today. PHYSICAL EXAMINATION: Please refer to progress note from today. LABORATORY DATA: WBC is 6.4, RBC is 4.73, hemoglobin 13.9, hematocrit 42, platelets 213. Sodium 140, potassium 4.6, chloride 105, CO2 is 30, anion gap 5 , BUN 43, creatinine 1.53, BUN/creatinine ratio 28.1, GFR 32.0, glucose ranging from 113 to 179, lactic acid 0.8, calcium 9.8, magnesium 1.9, total bilirubin 0.40, AST 14, ALT 12, alk phos 56, troponin 0.01, total protein 7.1, albumin 4.0 , globulin 3.1, albumin/globulin ratio 1.3, and TSH is 1.81. Urinalysis was negative for any acute infective process. IMAGING: CT of the brain dated 05/01/19 shows no acute intracranial pathology and some diffuse involutional changes consistent with chronic small vessel ischemic changes. Transthoracic echo shows an ejection fraction of 50% to 55%. Pacer wire noted in the right ventricle. Abnormal interventricular septal wall motion noted consistent with an RV pacemaker. Mitral valve with mild regurgitation. Aortic valve with moderate aortic stenosis with details as noted above in the body of this document. Tricuspid valve, trace regurgitation. Pulmonic valve, trace to mild regurgitation. As compared to the echo of 05/12/18, the left ventricle ejection fraction is stable and the is now moderate instead of mild. DISPOSITION: The patient was discharged to home in the care of family in stable condition. DIET: Heart healthy diabetic as tolerated. ACTIVITY: Progress activity as tolerated. DISCHARGE INSTRUCTIONS: Change position slowly. Continue SEBAS stockings as tolerated. FOLLOWUPS: The patient was instructed to follow up with Dr. Torres Little in the next [address] Rosa. She does have an appointment already scheduled for Saturday of this week. TIME SPENT: Thirty five minutes on discharge planning. ISRAEL LAZARO, FATUMA [id number]/[facility] #: [id number] [place]
== END 2019-05-03 16:30 | disposition home or self-care (01) ==
LOC: ED 11:17 → MED 15:29
PROVIDERS: ADMIT Internal Medicine; ATTEND Internal Medicine
DX: I12.9 Hypertensive chronic kidney disease with stage 1 through stage 4 chronic kidney disease, or unspecified chronic kidney disease (principal); E11.22 Type 2 diabetes mellitus with diabetic chronic kidney disease; N18.3 Chronic kidney disease, stage 3 (moderate); I25.10 Atherosclerotic heart disease of native coronary artery without angina pectoris; R42 Dizziness and giddiness; K21.9 Gastro-esophageal reflux disease without esophagitis; R06.02 Shortness of breath; R51 Headache; E78.5 Hyperlipidemia, unspecified; R94.31 Abnormal electrocardiogram [ECG] [EKG]; I95.1 Orthostatic hypotension; Z79.82 Long term (current) use of aspirin; Z79.899 Other long term (current) drug therapy; Z85.038 Personal history of other malignant neoplasm of large intestine; Z79.4 Long term (current) use of insulin; E11.319 Type 2 diabetes mellitus with unspecified diabetic 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; Z95.5 Presence of coronary angioplasty implant and graft
CPT/HCPCS: 36415; 70450; 80053; 81003; 83605; 83735; 84443; 84484; 85025; 93005; 93306; 96361; 96372; 96374; 99285; A9270-GY; G0378; G8978-GP-CJ; G8979-GP-CI; G8980-GP-CI; J1644

== ENCOUNTER 2019-05-08 22:02 | Emergency (ER) | payer MEDICARE ==
--- OUTSIDE RECORDS SUMMARY | 2019-05-08 22:30 | XMS REPORT | Summary of Care ---
:1930 Author Organization [facility] Address [address] [place] [address] Care Team Providers Name Role Phone None, [place] Primary Care Provider Unavailable Reason for Referral Durable Medical Equipment (Routine) Status Reason Specialty Diagnoses / Referred By Referred To Procedures Contact Contact Pending Review Diagnoses Orthostatic hypotension Yoselyn Rosa MD [address] [place] [address] Reason for Visit Reason Comments Establish Care introduction Encounter Details Date Type Department Care Team Description 05/04/2019 Office Visit [facility] [place], Orthostatic hypotension ( Primary Dx); Practice MD Yoselyn Type 2 diabetes with complication (HCC) [address] [facility] [address] [place] [address] [phone] Allergies No Known Allergiesdocumented as of this encounter (statuses as of 05/04/2019) Medications Medication Sig Dispensed Refills Start Date End Date Status triamterene-hydroc Take 1 Cap by 0 Active hlorothiazide mouth DAILY. (DYAZIDE) 37.5-25 MG Oral Cap simvastatin Take 40 mg by 0 Active (ZOCOR) 40 MG Oral mouth DAILY. Tab metoprolol Take 25 mg by 0 Active (LOPRESSOR) 25 MG mouth TWICE Oral Tab DAILY. Aspirin Take 81 mg by 0 Active (ASPIR-LOW) 81 MG mouth DAILY. Oral Tab EC lisinopril Take 10 mg by 0 Active (PRINIVIL, mouth DAILY. ZESTRIL) 10 MG Oral Tab Potassium Chloride Take 8 mEq by 0 Active CR 8 MEQ Oral Cap mouth DAILY. CR bimatoprost 1 Drop DAILY. 0 Active (LUMIGAN) 0.01 % Ophthalmic Solution Insulin NPH, Inject 9 Units 0 Active Human,, Isophane, beneath the 100 UNIT/ML skin. 9 units Subcutaneous pm Suspension Pen-injector insulin-RIndicatio DAILY. 10 0 Active ns: 7units pm, am-9-9 9units afternoon Indications: 7units pm, 9units afternoon Brimonidine Place 1 Drop to 0 05/04/2019 Discontinued Tartrate-Timolol the external 0.2-0.5 % eye DAILY. Ophthalmic Solution documented as of this encounter (statuses as of 05/04/2019) Active Problems Problem Noted Date Diabetes mellitus type 2, insulin dependent Aortic stenosis Diabetic retinopathy Overview: Legal blundness Hyperlipidemia Sick sinus syndrome Overview: Pacemaker Hypertension CAD (coronary artery disease) Overview: [id number] documented as of this encounter (statuses as of 05/04/2019) Social History Tobacco Use Types Packs/Day Years Used Date Never Smoker 0 Smokeless Tobacco: Never Used Alcohol Use Drinks/Week oz/Week Comments Yes Alcohol Habits Answer Date Recorded How often do you have a drink containing alcohol? Monthly or less 05/04/2019 How many drinks containing alcohol do you have on a Not asked typical day when you are drinking? How often do you have six or more drinks on one Not asked occasion? Sex Assigned at Date Recorded Not on file Job Start Date Occupation Industry Not on file Not on file Not on file Travel History Travel Start Travel End No recent travel history available. documented as of this encounter Last Filed Vital Signs Vital Sign Reading Time Taken Comments Blood Pressure 150/90 05/04/2019 11:21 AM EST Pulse 63 05/04/2019 10:16 AM EST Temperature 36.2 05/04/2019 10:16 AM EST C (97.2 F) Respiratory Rate - - Oxygen Saturation 94% 05/04/2019 10:16 AM EST Inhaled Oxygen Concentration - - Weight 72.2 kg (159 lb 3.2 oz) 05/04/2019 10:16 AM EST Height 149.9 cm (4' 11") 05/04/2019 10:16 AM EST Body Mass Index 32.15 05/04/2019 10:16 AM EST documented in this encounter Patient Instructions Patient InstructionsYoselyn Rosa MD - 05/04/2019 10:00 AM EST1. Schedule Medicare wellness documented in this encounter Progress Notes Yoselyn Rosa MD - 05/04/2019 10:00 AM EST Patient: Renee Jaime Date of Service: 05/04/2019 Subjective: Renee Jaime is a 88-y.o. female who presents for Chief Complaint Patient presents with Establish Care introduction [facility] [facility] [place] Statement. Review of the hospitalization: I am seeing for transition of care following hospitalization. The date of discharge was: 05/03/19 The discharge diagnosis was Orthostatic hypotension likely due to dehydration. I reviewed the discharge summary, discharge instructions, and pertinent additional documentation obtained during hospitalization. I reconciled the medications. I also reviewed the Transition of Care documentation done by staff. The tests that were not available at the time of discharge were reviewed. Additional tests which are not yet available include: None Coordination of care. (delete one and this phrase) - I am satisfied that appropriate referrals are in place to deal with the problems identified during hospitalization, and that the patient has adequate community resources and support in place. - Additional testing related to hospitalization was requested today: yes See orders. I confirmed the patient's understanding of the diagnosis and plan of care. The current and discharge medications were reconciled by me, today The source document was hospital discharge summary Patient presented to the [facility] with complains of positional dizziness Patient had very high BP and was directed to the ER for further evaluation She was found to have significant orthostatic BP change CT of the brain - no acute findings. ECHO- moderate Patient was hydrated IV. Started on Chad stockings with improvement Feels better: resolved orthostatic lightheadedness Has appointment with cardiology, Dr. Little pnd Past Medical History: Diagnosis Date Aortic stenosis Diabetes mellitus type 2, insulin dependent (HCC) Diabetic retinopathy (HCC) Legal blundness Hyperlipidemia Hypertension Sick sinus syndrome (HCC) Pacemaker No current outpatient medications on file as of 05/04/2019. No current facility-administered medications on file as of 05/04/2019. No Known Allergies Review of Systems: All remaining review of systems was negative. Objective: BP 150/90 (BP Location: Left arm, Patient Position: Standing) Pulse 63 Temp 97.2 F (36.2 C) Ht 4' 11" (1.499 m) Wt 159 lb 3.2 oz (72.2 kg) SpO2 94% BMI 32.15 kg/m2 GENERAL: alert, no distress NOSE: Nares normal. Septum midline. Mucosa normal. No drainage or sinus tenderness. THROAT: lips, mucosa, and tongue normal: teeth and gums normal LUNGS: clear to auscultation bilaterally HEART: regular rate and rhythm, S1, S2 normal, no murmur, click, rub or gallop EXTREMITIES: no edema Examination of the feet reveals normal DP and PT pulses and normal sensory exam. ICD-9-CM ICD-10-CM 1. Orthostatic hypotension Improved 458.0 I95.1 DME COMPRESSION STOCKINGS (AMB) 2. Type 2 diabetes with complication (HCC) Due for blood tests in 05/2019 250.90 E11.8 MICROALBUMIN, RANDOM URINE W/ CREATININE Patient Instructions 1. Schedule Medicare wellness Author: Yoselyn Rosa MD documented in this encounter Plan of Treatment Date Type Specialty Care Team Description 06/01/2019 Office Visit Family Practice Yoselyn Rosa MD [address] [place] [address] [phone] Name Type Priority Associated Diagnoses Order Schedule MICROALBUMIN, RANDOM Lab Routine Type 2 diabetes with Expected: 05/04/2019 URINE W/ CREATININE complication (HCC) (Approximate), Expires: 10/31/2019 Name Type Priority Associated Diagnoses Order Schedule DME COMPRESSION Referral Routine Orthostatic hypotension Ordered: 2018 STOCKINGS (AMB) Health Maintenance Due Date Last Done Comments MEDICARE ANNUAL WELLNESS VISIT 1930 DEPRESSION SCREENING 1942 HIV SCREENING 1945 ZOSTER IMMUNIZATION SERIES (1 of 1980 2) FALL RISK ASSESSMENT 10/06/1995 PNEUMOCOCCAL 65+YRS (1 of 2 - 10/06/1995 PCV13) INFLUENZA VACCINE (#1) 2019 HEMOGLOBIN A1C 06/08/2019 03/09/2019 Diabetic Eye Exam 03/04/2020 03/04/2019 FOOT EXAM 05/04/2020 05/04/2019 HPV IMMUNIZATION SERIES Aged Out No longer eligible based on patient's age to complete this topic MENINGOCOCCAL VACCINE IMM Aged Out No longer eligible based on patient's age to complete this topic documented as of this encounter Procedures Procedure Name Priority Date/Time Associated Diagnosis Comments DIABETES FOOT EXAM Routine 05/04/2019 GLYCO A1C (EXTERNAL) Routine 03/09/2019 DIABETES OPH EXAM Routine 03/04/2019 TRIGLYCERIDES (EXTERNAL) Routine 12/08/2018 HDL (EXTERNAL) Routine 12/08/2018 CHOLESTEROL (EXTERNAL) Routine 12/08/2018 DIRECT LDL (EXTERNAL) Routine 12/08/2018 documented in this encounter Results DIABETES FOOT EXAM (05/04/2019) FOOT EXAM normal [facility] POCT Performing Organization Address [facility] Phone Number [facility] POCT [address] [place] [phone] GLYCO A1C (EXTERNAL) (03/09/2019) Glyco A1c (External) 8.1 [facility] POCT Performing Organization Address [facility] Phone Number [facility] POCT [address] [place] [phone] DIABETES OPH EXAM (03/04/2019) OPHTHALMOLOGY EXAM Retinopathy No retinopathy, [facility] Retinopathy POCT Performing Organization Address [facility] Phone Number [facility] POCT [address] [place] [phone] TRIGLYCERIDES (EXTERNAL) (12/08/2018) Triglycerides (External) 127 [facility] POCT Performing Organization Address [facility] Phone Number [facility] POCT 1 [address] [place] [phone] HDL (EXTERNAL) (12/08/2018) HDL (External) 66.2 [facility] POCT Performing Organization Address [facility] Phone Number [facility] POCT [address] [place] [phone] CHOLESTEROL (EXTERNAL) (12/08/2018) Cholesterol (External) 174 [facility] POCT Performing Organization Address [facility] Phone Number [facility] POCT [address] [place] [phone] DIRECT LDL (EXTERNAL) (12/08/2018) LDL (External) 82 [facility] POCT Performing Organization Address [facility] Phone Number [facility] POCT [address] [place] [phone] documented in this encounter Visit Diagnoses Diagnosis Orthostatic hypotension - Primary Type 2 diabetes with complication (HCC) Type II or unspecified type diabetes mellitus with unspecified complication, not stated as uncontrolled documented in this encounter Insurance Payer Benefit Plan / Subscriber ID Effective Dates Phone Address Type Group MEDICARE MEDICARE PART A xxxxxxxxxxx 1995-Present Medicare & B [facility] CARE xxxxxxxxxxx 2018-Present [employer] C/O [place] (Home) [place] [phone] [address] (Work) [place], [place] documented as of this encounter
--- OUTSIDE RECORDS SUMMARY | 2019-05-08 22:30 | XMS REPORT | Continuity of Care Document ---
:1930 External Reference #:[id number] Author Name Torres Little M.D. (transmitted by agent of provider Theodora Carvalho) Address [address] [place] [address] Care Team Providers Name Role Phone Niru Bermudez MD - Family Care Team Information Green Hide Inspector Medicine Problems Active Problems Provider Date Paroxysmal atrial fibrillation Kelley Dipak, GUEST SERVICES ASSOCIATE Onset: 05/11/2018 Hypoglycemic event in diabetes Kelley Dipak, GUEST SERVICES ASSOCIATE Onset: 05/11/2018 Hypertensive urgency Kelley Dipak, GUEST SERVICES ASSOCIATE Onset: 05/11/2018 Chronic kidney disease stage 3 Kelley Dipak, GUEST SERVICES ASSOCIATE Onset: 05/11/2018 Type 2 diabetes mellitus Kelley Dipak, GUEST SERVICES ASSOCIATE Onset: 05/11/2018 Type 2 diabetes mellitus with unspecified diabetic Kelley Dipak, GUEST SERVICES ASSOCIATE Onset: 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 Long-term current use of insulin Kelley Dipak, GUEST SERVICES ASSOCIATE Onset: 05/11/2018 Social History Type Date Description Comments Sex Unknown Tobacco Use Start: Unknown Never Smoked Cigarettes Smoking Status Reviewed: 02/13/19 Never Smoked Cigarettes ETOH Use Never used alcohol Tobacco Use Start: Unknown Patient has never smoked Recreational Drug Use Never Used Drugs Exercise Type/Frequency Does not exercise Exercise Type/Frequency Exercises rarely Allergies, Adverse Reactions, Alerts Active Allergies Reaction Severity Comments Date Codeine 07/06/2015 Medications Active Medications SIG Qnty Indications Ordering Provider Date Triamterene/Hydrochlo 1 by mouth every 90caps Viktoriya Ugalde, 02/15/2016 rothiazide day M.D. 37.5-25mg Capsules Aspir-Low 1 by mouth every Unknown 81mg Tablets day Docusate Sodium 1 by mouth twice Unknown 100mg a day Capsules Lisinopril 1 by mouth every Unknown 10mg Tablets day Klor-Con 1 by mouth every Unknown 8Meq Tablets day ER Simvastatin 1 by mouth every Unknown 40mg night at bedtime Tablets Metoprolol Tartrate 1 by mouth twice Unknown a day 25mg Tablets Onetouch Ultra test controls as Unknown Control needed Solution Shingrix every 2 months Unknown 50mcg/0.5ML Suspension Rec [place] Per Dr. Fitzgerald Unknown 0.03% Solution BD Insulin Syringe Unknown Ultra-Fine/0.5ML/30G X 12.7mm 30G X 1/2" 0.5 ML Misc Erythromycin Apply A 1 2 Inch Unknown 5mg/GM Strip To Lower Ointment Right Eyelid Margin Where Redness Is AT Night For 1 Month Novolin N 115 u twice a day Unknown 100Unit/ML Suspension Novolin R 8 u with each Unknown 100Unit/ML meal Solution Medications Administered in Office Medication SIG Qnty Indications Ordering Provider Date Depomedrol 40MG Viktoriya Ugalde M.D. 02/15/2016 Injection Depomedrol 40MG Viktoriya Ugalde M.D. 02/15/2016 Injection Depomedrol 40MG Viktoriya Ugalde M.D. 07/06/2015 Injection Immunizations Description No Information Available Vital Signs Date Vital Result Comment 02/13/2019 11:07am Height 62 inches 5'2" Weight 152.00 lb with shoes Heart Rate 64 /min BP Systolic Sitting 134 mmHg Lue BP Diastolic Sitting 82 mmHg Lue BP Systolic Standing 140 mmHg Lue BP Diastolic Standing 72 mmHg Lue BMI (Body Mass Index) 27.8 kg/m2 Ejection Fraction 55-60% Echo 09/12/18 10/31/2018 2:24pm Height 62 inches 5'2" Heart Rate 60 /min BP Systolic 162 mmHg BP Diastolic 66 mmHg O2 % BldC Oximetry 96 % Results Description No Information Available Procedures Date Code Description Status 03/16/2019 77032 Pace Maker Eval W/Iterative Adjment Dual Lead Completed 03/16/2019 72353 Pace Maker Eval W/Iterative Adjment Dual Lead Completed 02/17/2019 44376 Icd Eval Sing,Dual,Multi Lead Remote Recpt Transm Tech Completed Rev Tech S 02/17/2019 97448 Icd Eval Sing,Dual,Multi Lead Remote Recpt Transm Tech Completed Rev Tech S 02/17/2019 10708 Pacemaker Check Remote Up To 90Days Completed Single,Dual,Multiple Lead 02/17/2019 93740 Pacemaker Check Remote Up To 90Days Completed Single,Dual,Multiple Lead 02/13/2019 57347 EKG Tracing & Interpretation Completed 11/18/2018 18928 Icd Eval Sing,Dual,Multi Lead Remote Recpt Transm Tech Completed Rev Tech S 11/18/2018 26089 Icd Eval Sing,Dual,Multi Lead Remote Recpt Transm Tech Completed Rev Tech S 11/18/2018 90843 Pacemaker Check Remote Up To 90Days Completed Single,Dual,Multiple Lead 11/18/2018 21371 Pacemaker Check Remote Up To 90Days Completed Single,Dual,Multiple Lead 05/28/2000 77953140 Colonoscopy Completed Medical Devices Description No Information Available Encounters Type Date Location Provider Dx Diagnosis Office Visit 02/13/2019 [facility] Torres Little Z95.0 Presence of 11:15a Of Monalisa Wren cardiac pacemaker I49.5 Sick sinus syndrome Assessments Date Code Description Provider 03/16/2019 I49.5 Sick sinus syndrome Ica Pacer Schedule 03/16/2019 Z95.0 Presence of cardiac pacemaker Torres Little M.D. 03/16/2019 Z95.0 Presence of cardiac pacemaker Ica Pacer Schedule 02/17/2019 I49.5 Sick sinus syndrome Torres Little M.D. 02/17/2019 I49.5 Sick sinus syndrome Remote Device Checks 02/17/2019 Z95.0 Presence of cardiac pacemaker Torres Little M.D. 02/17/2019 Z95.0 Presence of cardiac pacemaker Remote Device Checks 02/13/2019 Z95.0 Presence of cardiac pacemaker Torres Little M.D. 02/13/2019 I49.5 Sick sinus syndrome Torres Little M.D. 11/18/2018 Z95.0 Presence of cardiac pacemaker Torres Little M.D. 11/18/2018 Z95.0 Presence of cardiac pacemaker Remote Device Checks 11/18/2018 I49.5 Sick sinus syndrome Torres Little M.D. 11/18/2018 I49.5 Sick sinus syndrome Remote Device Checks Plan of Treatment 02/13/2019 - Torres Little M.D.Z95.0 Presence of cardiac pacemakerFollow up: 1 yearI49.5 Sick sinus syndrome Functional Status Description No Information Available Mental Status Description No Information Available Referrals Description No Information Available
[2019-05-08 22:52] LABS: ABS Basophils 0.1 10^3/ul (0-0.2); ABS Eosinophils 0.3 10^3/ul (0-0.6); ABS Lymphocytes 1.1 10^3/ul (1.0-4.8); ABS Monocytes 0.6 10^3/ul (0-0.8); ABS Neutrophils 4.8 10^3/ul (1.5-7.7); Eosinophil % 4.7 %; Hematocrit 40 % (35-47); Hemoglobin 13.1 g/dL (12.0-16.0); Lymphocyte % 15.4 %; Mean Corpuscular HGB Conc 33 g/dL (31-36); Mean Corpuscular Hemoglobin 30 pg (27-31); Mean Corpuscular Volume 89 fL (80-97); Mean Platelet Volume 8.4 fL (7.4-10.4); Platelet Count 215 10^3/uL (150-450); Red Blood Count 4.42 10^6 /uL (3.70-4.87); Red Cell Distribution Width 13 % (10-15); White Blood Count 6.9 10^3/uL (3.5-10.8)
[2019-05-08 23:11] LABS: Troponin I 0.01 ng/mL (<0.03)
[2019-05-08 23:41] LABS: Albumin 3.8 g/dL (3.2-5.2); Calcium 9.1 mg/dL (8.6-10.3); Magnesium 1.7 mg/dL (1.9-2.7); Total Bilirubin 0.3 mg/dL (0.2-1.0)
[2019-05-08 23:42] LABS: TSH (Thyroid Stimulating Horm) 1.83 mcIU/mL (0.34-5.60)
[2019-05-08 23:47] LABS: Albumin/Globulin Ratio 1.3 (1-3); C Reactive Protein 2.55 mg/L (<8.01); EGFR African American 40.9 (>60); EGFR Non-African American 33.8 (>60); Globulin 2.9 g/dL (2-4); Total Protein 6.7 g/dL (6.4-8.9)
[2019-05-08 23:48] LABS: Potassium 5.4 mmol/L (3.5-5.0)
[2019-05-08] MEDS ORDERED: Magnesium Sulfate 2 GM IV* 2 GM/50 ML BAG IVPB ONE (23:55)
[2019-05-09 00:02] LABS: Urine Appearance Clear; Urine Bilirubin Negative (Negative); Urine Blood 1+ (Negative); Urine Color Straw; Urine Glucose 1+(50 mg/dL) (Negative); Urine Ketones Negative (Negative); Urine Nitrite Negative (Negative); Urine Protein 1+(30 mg/dL) (Negative); Urine Specific Gravity 1.004 (1.010-1.030); Urine Urobilinogen Negative (Negative)
[2019-05-09 00:09] LABS: Urine Bacteria 1+ (Absent); Urine Red Blood Cell Trace(0-2/hpf) (Absent); Urine Squamous Epithelial Cell Present (Absent); Urine White Blood Cell Trace(0-5/hpf) (Absent)
--- NOTE | 2019-05-09 00:55 | ED ---
Hypertension - HPI Summary HPI Summary: Patient complains of one episode of shortness of breath lasting about half an hour, elevated blood pressure up to 217 105 at home. Patient has a history of admission to [facility] one week ago for elevated blood pressure. Patient denies fever , cough, sore throat, CP, N/V/D, abdominal pain, change in urine, change in BM. Patient has history of pacemaker, CAD, HTN, HDL, DM 2, CK D. Compliant with hypertension medications. 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 Little. - History of Current Complaint Chief Complaint: EDHypertension Stated Complaint: SOB PER EMS Time Seen by Provider: 05/08/19 22:19 Hx Obtained From: Patient, Family/Medical Front Desk Coordinator Onset/Duration: Started Hours Ago Timing: Intermittent, Lasting Minutes Aggravating Factor(s): Nothing Alleviating Factor(s): Rest Associated Signs & Symptoms: SOB - Risk Factors Cardiac Risk Factors: Hypertension, Diabetes, CAD - Allergies/Home Medications Allergies/Adverse Reactions: Allergies Allergy/AdvReac Type Severity Reaction Status Date / Time brimonidine [From Combigan] Allergy Dizziness Verified 05/01/19 10:26 codeine Allergy GI Upset Verified 05/01/19 10:26 hydralazine Allergy Difficulty Verified 05/01/19 10:26 Breathing timolol [From Combigan] Allergy Dizziness Verified 05/01/19 10:26 PMH/Surg Hx/FS Hx/Imm Hx Endocrine/Hematology History: Reports: Hx Diabetes - Type I, insulin dependent, diagnosed late , early 1999 Denies: Hx Anticoagulant Therapy, Hx Blood Disorders, Hx Blood Transfusions, Hx Sickle Cell Disease, Hx Unexplained Bleeding Cardiovascular History: Reports: Hx Coronary Artery Disease - listed in select visits, Hx Hypertension - controlled with medication, Other Cardiovascular Problems/Disorders - 2006 ?, bypass surgery Denies: Hx Cardiac Arrest, Hx Cardiomegaly, Hx Congenital Heart Disease, Hx Congestive Heart Failure, Hx Pacemaker/ICD, Hx Peripheral Vascular Disease, Hx Rheumatic Fever Comment Only: Hx Auto Implanted Cardiovert Defib - yy Respiratory History: Denies: Hx Chronic Obstructive Pulmonary Disease (COPD), Hx Lung Cancer, Hx Pleural Effusion, Hx Pulmonary Edema, Hx Pulmonary Embolism, Hx Sleep Apnea GI History: Reports: Hx Gastroesophageal Reflux Disease Denies: Hx Gastrointestinal Bleed, Hx Irritable Bowel, Hx Pyloric Stenosis, Hx Ulcer Comment Only: Other GI Disorders - Colon CA History: Reports: Other Problems/Disorders - 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 Denies: Hx Acute Renal Failure, Hx Benign Prostatic Hyperplasia, Hx Chronic Renal Failure, Hx Kidney Infection, Hx Kidney Stones Musculoskeletal History: Denies: Hx Arthritis, Hx Back Problems, Hx Congenital Bone Abnormalities, Hx Orthopedic Injury, Hx Osteoporosis Sensory History: Reports: Hx Cataracts - had surgery bi-lat, unsure of dates, Hx Legally Blind Denies: Hx Contacts or Glasses - legally blind, Hx Eye Injury, Hx Glaucoma, Hx Macular Degeneration, Hx Deafness, Hx Hearing Aid, Hx Hearing Problem Opthamlomology History: Reports: Hx Cataracts - had surgery bi-lat, unsure of dates, Hx Legally Blind Denies: Hx Contacts or Glasses - legally blind, Hx Eye Injury, Hx Glaucoma, Hx Macular Degeneration Neurological History: Reports: Hx Dementia - MILD, Hx Headaches Denies: Hx Spinal Cord Injury, Hx Transient Ischemic Attacks (TIA) Psychiatric History: Denies: Hx Anxiety, Hx Oppositional [place] Disorder, Hx Depression, Hx Panic Disorder, Hx Post Traumatic Stress Disorder, Hx Inpatient Treatment, Hx Bipolar Disorder - Cancer History Cancer Type, Location and Year: 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 bypass surgery 2006 approx. Hx Anesthesia Reactions: No - Immunization History Date of Influenza Vaccine: UTD Infectious Disease History: No Infectious Disease History: Denies: Hx Clostridium Difficile, Hx Hepatitis, Hx of Known/Suspected MRSA, Hx Shingles, Hx Tuberculosis, Hx Known/Suspected VRE, Hx Known/Suspected VRSA, Traveled Outside the [place] in Last 30 Days - Family History Known Family History: Positive: Cardiac Disease, Diabetes - Social History Alcohol Use: None Alcohol Amount: only a toast 1-2 x a year, occas. a beer in the summer Hx Substance Use: No Substance Use Type: Reports: None Hx Tobacco Use: No Smoking Status (MU): Never Smoked Tobacco Review of Systems Constitutional: Negative Eyes: Negative ENT: Negative Cardiovascular: Negative Positive: Shortness Of Breath Gastrointestinal: Negative Genitourinary: Negative Musculoskeletal: Negative Skin: Negative Neurological: Negative Psychological: Normal All Other Systems Reviewed And Are Negative: Yes Physical Exam - Summary Physical Exam Summary: Lung sounds clear to auscultation bilaterally. Regular rate and rhythm. Abdomen soft nontender. Triage Information Reviewed: Yes Vital Signs On Initial Exam: Initial Vitals Temp Pulse Resp BP Pulse Ox 97.7 F 60 22 193/78 96 05/08/19 22:09 05/08/19 22:09 05/08/19 22:09 05/08/19 22:09 05/08/19 22:09 Vital Signs Reviewed: Yes Appearance: Positive: Well-Appearing Skin: Positive: Warm Head/Face: Positive: Normal Head/Face Inspection Eyes: Positive: Normal Neck: Positive: Supple Respiratory/Lung Sounds: Positive: Clear to Auscultation Cardiovascular: Positive: Normal Abdomen Description: Positive: Nontender Musculoskeletal: Positive: Normal Neurological: Positive: Normal Psychiatric: Positive: Normal AVPU Assessment: Alert - Beattie Coma Scale Best Eye Response: 4 - Spontaneous Best Motor Response: 6 - Obeys Commands Best Verbal Response: 5 - Oriented Coma Scale Total: 15 Procedures - Sedation Patient Received Moderate/Deep Sedation with Procedure: No Diagnostics - Vital Signs Vital Signs Temp Pulse Resp BP Pulse Ox 05/08/19 22:23 198/90 05/08/19 22:09 97.7 F 60 22 193/78 96 - Laboratory Lab Results: Lab Results 05/08/19 05/08/19 05/08/19 Range/Units 22:47 22:47 23:48 WBC 6.9 (3.5-10.8) 10^3/uL RBC 4.42 (3.70-4.87) 10^6 /uL Hgb 13.1 (12.0-16.0) g/dL Hct 40 (35-47) % MCV 89 (80-97) fL MCH 30 (27-31) pg MCHC 33 (31-36) g/dL RDW 13 (10-15) % Plt Count 215 (150-450) 10^3/uL MPV 8.4 (7.4-10.4) fL Neut % (Auto) 69.6 % Lymph % (Auto) 15.4 % Ponce % (Auto) 9.4 % Eos % (Auto) 4.7 % Baso % (Auto) 0.9 % Absolute Neuts (auto) 4.8 (1.5-7.7) 10^3/ul Absolute Lymphs (auto) 1.1 (1.0-4.8) 10^3/ul Absolute Monos (auto) 0.6 (0-0.8) 10^3/ul Absolute Eos (auto) 0.3 (0-0.6) 10^3/ul Absolute Basos (auto) 0.1 (0-0.2) 10^3/ul Absolute Nucleated RBC 0.0 10^3/ul Nucleated RBC % 0.0 Sodium 136 (135-145) mmol/L Potassium 5.4 H (3.5-5.0) mmol/L Chloride 104 (101-111) mmol/L Carbon Dioxide 27 (22-32) mmol/L Anion Gap 5 (2-11) mmol/L BUN 38 H (6-24) mg/dL Creatinine 1.46 H (0.51-0.95) mg/dL Est GFR ( Amer) 40.9 (>60) Est GFR (Non-Af Amer) 33.8 (>60) BUN/Creatinine Ratio 26.0 H (8-20) Glucose 209 H (70-100) mg/dL Calcium 9.1 (8.6-10.3) mg/dL Magnesium 1.7 L (1.9-2.7) mg/dL Total Bilirubin 0.30 (0.2-1.0) mg/dL AST 17 (13-39) U/L ALT 17 (7-52) U/L Alkaline Phosphatase 61 (34-104) U/L Troponin I 0.01 (<0.03) ng/mL C-Reactive Protein 2.55 (<8.01) mg/L Total Protein 6.7 (6.4-8.9) g/dL Albumin 3.8 (3.2-5.2) g/dL Globulin 2.9 (2-4) g/dL Albumin/Globulin Ratio 1.3 (1-3) TSH 1.83 (0.34-5.60) mcIU/mL Urine Color Straw Urine Appearance Clear Urine pH 6.0 (5-9) Ur Specific [place] 1.004 L (1.010-1.030) Urine Protein 1+(30 mg/dl) A (Negative) Urine Ketones Negative (Negative) Urine Blood 1+ A (Negative) Urine Nitrate Negative (Negative) Urine Bilirubin Negative (Negative) Urine Urobilinogen Negative (Negative) Ur Leukocyte Esterase Trace A (Negative) Urine WBC (Auto) Trace(0-5/hpf) (Absent) Urine RBC (Auto) Trace(0-2/hpf) (Absent) Ur Squamous Epith Cells Present A (Absent) Urine Bacteria 1+ A (Absent) Urine Glucose 1+(50 mg/dl) A (Negative) Result Diagrams: 05/08/19 22:47 05/08/19 22:47 Lab Statement: Any lab studies that have been ordered have been reviewed, and results considered in the medical decision making process. Hypertension Course/Dx - Course Course Of Treatment: Patient complains of one episode of shortness of breath lasting about half an hour, elevated blood pressure up to 210/105 at home. Patient has a history of admission to [facility] one week ago for elevated blood pressure. History of sudden episodes of elevated blood pressure. Patient denies fever, cough, sore throat, CP, N/V/D, abdominal pain, change in urine, change in BM. Patient has history of pacemaker, CAD, HTN, HDL, DM 2, CK D. Compliant with hypertension medications. 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 Little. Initial elevated blood pressure self resolved to normal levels. Vital signs otherwise within normal limits. Chest x-ray negative. Creatinine 1.46, which is patient baseline. Magnesium 1.7, 1 g magnesium IV administered. EKG paced rhythm with heart rate of 60. No shortness of breath during stay in the ED. Patient discharged to follow-up with primary care and Dr. Little for evaluation of elevated blood pressure - Diagnoses Provider Diagnoses: Hypertension, SOB (shortness of breath) Discharge ED - Sign-Out/Discharge Documenting (check all that apply): Patient Departure - Discharge Plan Condition: Stable Disposition: HOME Patient Education Materials: Hypertension (ED), Shortness of Breath (ED) Referrals: Yoselyn Rosa MD [Primary Care Provider] - Additional Instructions: Follow-up with your primary care doctor and your training lead for further evaluation of your hypertension. Return to the ED for any new or worsening symptoms. - Billing Disposition and Condition Condition: STABLE Disposition: Home
[2019-05-09 01:34] VITALS: BP 140/84
== END 2019-05-09 01:33 | disposition home or self-care (01) ==
LOC: ED 22:02
DX: R06.02 Shortness of breath (principal); I10 Essential (primary) hypertension; E10.9 Type 1 diabetes mellitus without complications; I25.10 Atherosclerotic heart disease of native coronary artery without angina pectoris; K21.9 Gastro-esophageal reflux disease without esophagitis; F03.90 Unspecified dementia, unspecified severity, without behavioral disturbance, psychotic disturbance, mood disturbance, and anxiety; Z85.038 Personal history of other malignant neoplasm of large intestine; Z95.0 Presence of cardiac pacemaker; Z95.1 Presence of aortocoronary bypass graft; Z79.4 Long term (current) use of insulin; Z79.899 Other long term (current) drug therapy; Z88.5 Allergy status to narcotic agent; Z88.8 Allergy status to other drugs, medicaments and biological substances
CPT/HCPCS: 36415; 71046; 80053; 81003; 81015; 83735; 84443; 84484; 85025; 86140; 87086; 93005; 96365; 99283; J3475

== ENCOUNTER 2019-05-27 21:01 | Emergency (ER) | payer MEDICARE ==
[2019-05-27] MEDS ORDERED: Ketorolac INJ* 15 MG/ML 1 ML VIAL IV ONE (21:10)
[2019-05-27] MEDS ORDERED: Pantoprazole IV* 40 MG IV ONE (21:10)
[2019-05-27] MEDS ORDERED: Ondansetron INJ* 2 MG/ML VIAL IV ONE (21:10)
[2019-05-27] MEDS ORDERED: NS 0.9% 1000 ML** 1,000 ML IV ONE (21:10)
[2019-05-27 21:33] LABS: ABS Basophils 0.1 10^3/ul (0-0.2); ABS Eosinophils 0.1 10^3/ul (0-0.6); ABS Lymphocytes 1.1 10^3/ul (1.0-4.8); ABS Monocytes 0.4 10^3/ul (0-0.8); ABS Neutrophils 7.1 10^3/ul (1.5-7.7); Eosinophil % 1.7 %; Hematocrit 41 % (35-47); Hemoglobin 13.7 g/dL (12.0-16.0); Lymphocyte % 12.1 %; Mean Corpuscular HGB Conc 34 g/dL (31-36); Mean Corpuscular Hemoglobin 30 pg (27-31); Mean Corpuscular Volume 90 fL (80-97); Mean Platelet Volume 8.5 fL (7.4-10.4); Platelet Count 222 10^3/uL (150-450); Red Blood Count 4.56 10^6 /uL (3.70-4.87); Red Cell Distribution Width 13 % (10-15); White Blood Count 8.8 10^3/uL (3.5-10.8)
[2019-05-27 21:38] LABS: INR 0.92 (0.82-1.09)
--- OUTSIDE RECORDS SUMMARY | 2019-05-27 21:42 | XMS REPORT | Continuity of Care Document ---
:1930 External Reference #:[id number] Author Name Torres Little M.D. (transmitted by agent of provider Consuelo Merritt) Address [address] [place] [address] Care Team Providers Name Role Phone Niru Bermudez MD - Family Care Team Information Geospatial Engineer [phone] Medicine Problems Active Problems Provider Date Paroxysmal atrial fibrillation Kelley Dipak, MILL ORDER SCHEDULER Onset: 05/11/2018 Hypoglycemic event in diabetes Kelley Dipak, MILL ORDER SCHEDULER Onset: 05/11/2018 Hypertensive urgency Kelley Dipak, MILL ORDER SCHEDULER Onset: 05/11/2018 Chronic kidney disease stage 3 Kelley Dipak, MILL ORDER SCHEDULER Onset: 05/11/2018 Type 2 diabetes mellitus Kelley Dipak, MILL ORDER SCHEDULER Onset: 05/11/2018 Type 2 diabetes mellitus with unspecified diabetic Kelley Dipak, MILL ORDER SCHEDULER Onset: 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 Long-term current use of insulin Kelley Dipak, MILL ORDER SCHEDULER Onset: 05/11/2018 Social History Type Date Description Comments Sex Unknown Tobacco Use Start: Unknown Never Smoked Cigarettes Smoking Status Reviewed: 05/15/19 Never Smoked Cigarettes ETOH Use Never used alcohol Tobacco Use Start: Unknown Patient has never smoked Recreational Drug Use Never Used Drugs Exercise Type/Frequency Does not exercise Exercise Type/Frequency Exercises rarely Allergies, Adverse Reactions, Alerts Active Allergies Reaction Severity Comments Date Codeine 07/06/2015 Brimonidine 05/15/2019 Hydralazine 05/15/2019 Timolol 05/15/2019 Medications Active Medications SIG Qnty Indications Ordering Provider Date Triamterene/Hydrochl 1 by mouth every 90caps Viktoriya Ugalde, 02/15/2016 orothiazide day M.D. 37.5-25mg Capsules Aspir-Low 1 by mouth every Unknown 81mg day Tablets DR Docusate Sodium 1 by mouth twice Unknown 100mg a day Capsules Lisinopril 1 by mouth every Unknown 10mg day Tablets Klor-Con 1 by mouth every Unknown 8Meq Tablets day ER Simvastatin 1 by mouth every Unknown 40mg night at bedtime Tablets Metoprolol Tartrate 1 by mouth twice Unknown a day 25mg Tablets Onetouch Ultra test controls as Unknown Control needed Solution Shingrix every 2 months Unknown 50mcg/0.5ML Suspension Rec BD Insulin Syringe Unknown Ultra-Fine/0.5ML/30G X 12.7mm 30G X 1/2" 0.5 ML Misc Novolin N as directed Unknown 100Unit/ML Suspension Novolin R as directed Unknown 100Unit/ML Solution Medications Administered in Office Medication SIG Qnty Indications Ordering Provider Date Depomedrol 40MG Viktoriya Ugalde M.D. 02/15/2016 Injection Depomedrol 40MG Viktoriya Ugalde M.D. 02/15/2016 Injection Depomedrol 40MG Viktoriya Ugalde M.D. 07/06/2015 Injection Immunizations Description No Information Available Vital Signs Date Vital Result Comment 05/15/2019 8:01am Height 62 inches 5'2" Weight 158.00 lb with shoes Heart Rate 60 /min BP Systolic Sitting 124 mmHg lue reg cuff BP Diastolic Sitting 54 mmHg lue reg cuff BP Systolic Standing 120 mmHg lue reg cuff BP Diastolic Standing 50 mmHg lue reg cuff Respiratory Rate 16 /min BMI (Body Mass Index) 28.9 kg/m2 Ejection Fraction 50-55% 02/13/2019 11:07am Height 62 inches 5'2" Weight 152.00 lb with shoes Heart Rate 64 /min BP Systolic Sitting 134 mmHg Lue BP Diastolic Sitting 82 mmHg Lue BP Systolic Standing 140 mmHg Lue BP Diastolic Standing 72 mmHg Lue BMI (Body Mass Index) 27.8 kg/m2 Ejection Fraction 55-60% Echo 09/12/18 Results Description No Information Available Procedures Date Code Description Status 05/15/2019 17077 EKG Tracing & Interpretation Completed 05/03/2019 32783 ECHO Transthorasic Realtime 2D W Doppler & Color Flow Completed Hosp 03/16/2019 25687 Pace Maker Eval W/Iterative Adjment Dual Lead Completed 03/16/2019 79504 Pace Maker Eval W/Iterative Adjment Dual Lead Completed 02/17/2019 67974 Icd Eval Sing,Dual,Multi Lead Remote Recpt Transm Tech Completed Rev Tech S 02/17/2019 41330 Icd Eval Sing,Dual,Multi Lead Remote Recpt Transm Tech Completed Rev Tech S 02/17/2019 93566 Pacemaker Check Remote Up To 90Days Completed Single,Dual,Multiple Lead 02/17/2019 44402 Pacemaker Check Remote Up To 90Days Completed Single,Dual,Multiple Lead 02/13/2019 17899 EKG Tracing & Interpretation Completed 11/18/2018 24881 Icd Eval Sing,Dual,Multi Lead Remote Recpt Transm Tech Completed Rev Tech S 11/18/2018 24504 Icd Eval Sing,Dual,Multi Lead Remote Recpt Transm Tech Completed Rev Tech S 11/18/2018 32866 Pacemaker Check Remote Up To 90Days Completed Single,Dual,Multiple Lead 11/18/2018 84861 Pacemaker Check Remote Up To 90Days Completed Single,Dual,Multiple Lead 05/28/2000 90640658 Colonoscopy Completed Medical Devices Description No Information Available Encounters Type Date Location Provider Dx Diagnosis Office Visit 02/13/2019 [facility] Torres Little, Z95.0 Presence of 11:15a Of Monalisa Wren cardiac pacemaker I49.5 Sick sinus syndrome Assessments Date Code Description Provider 05/15/2019 R01.1 Cardiac murmur, unspecified Torres Little M.D. 05/15/2019 I49.5 Sick sinus syndrome Torres Little M.D. 05/15/2019 Z95.0 Presence of cardiac pacemaker Torres Little M.D. 05/15/2019 I10 Essential hypertension Torres Little M.D. 05/03/2019 R01.1 Cardiac murmur, unspecified Catalina Manzano M.D. 03/16/2019 I49.5 Sick sinus syndrome Ica Pacer [...] syndrome Remote Device Checks Plan of Treatment Future Appointment(s):11/13/2019 10:45 am - Torres Little M.D. at [facility]05/15/2019 - Torres Little M.D.R01.1 Cardiac murmur, tipzlpbxalcR64.5 Sick sinus udnlgusaJ71.0 Presence of cardiac [id number] Essential hypertensionFollow up:6 months Functional Status Description No Information Available Mental Status Description No Information Available Referrals Description No Information Available
--- OUTSIDE RECORDS SUMMARY | 2019-05-27 21:42 | XMS REPORT | Continuity of Care Document ---
:1930 External Reference #:[id number] Author Name Torres Little M.D. (transmitted by agent of provider Theodora Carvalho) Address [address] [place] [address] Care Team Providers Name Role Phone Niru Bermudez MD - Family Care Team Information Mate Relief [phone] Medicine Problems Active Problems Provider Date Paroxysmal atrial fibrillation Kelley Dipak, DERMATOLOGY TECHNICIAN Onset: 05/11/2018 Hypoglycemic event in diabetes Kelley Dipak, DERMATOLOGY TECHNICIAN Onset: 05/11/2018 Hypertensive urgency Kelley Dipak, DERMATOLOGY TECHNICIAN Onset: 05/11/2018 Chronic kidney disease stage 3 Kelley Dipak, DERMATOLOGY TECHNICIAN Onset: 05/11/2018 Type 2 diabetes mellitus Kelley Dipak, DERMATOLOGY TECHNICIAN Onset: 05/11/2018 Type 2 diabetes mellitus with unspecified diabetic Kelley Dipak, DERMATOLOGY TECHNICIAN Onset: 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 Long-term current use of insulin Kelley Dipak, DERMATOLOGY TECHNICIAN Onset: 05/11/2018 Social History Type Date Description [...] Information Available Procedures Date Code Description Status 05/03/2019 74339 ECHO Transthorasic Realtime 2D W Doppler & Color Flow Completed Hosp 03/16/2019 78999 Pace Maker Eval W/Iterative Adjment Dual Lead Completed 03/16/2019 23574 Pace Maker Eval W/Iterative Adjment Dual Lead Completed 02/17/2019 28456 Icd Eval Sing,Dual,Multi Lead Remote Recpt Transm Tech Completed Rev Tech S 02/17/2019 40594 Icd Eval Sing,Dual,Multi Lead Remote Recpt Transm Tech Completed Rev Tech S 02/17/2019 21689 Pacemaker Check Remote Up To 90Days Completed Single,Dual,Multiple Lead 02/17/2019 64202 Pacemaker Check Remote Up To 90Days Completed Single,Dual,Multiple Lead 02/13/2019 50787 EKG Tracing & Interpretation Completed 11/18/2018 43884 Icd Eval Sing,Dual,Multi Lead Remote Recpt Transm Tech Completed Rev Tech S 11/18/2018 11154 Icd Eval Sing,Dual,Multi Lead Remote Recpt Transm Tech Completed Rev Tech S 11/18/2018 58020 Pacemaker Check Remote Up To 90Days Completed Single,Dual,Multiple Lead 11/18/2018 95176 Pacemaker Check Remote Up To 90Days Completed Single,Dual,Multiple Lead 05/28/2000 [id number] Colonoscopy Completed Medical Devices Description No Information Available Encounters Type Date Location Provider Dx Diagnosis Office Visit 02/13/2019 [facility] Torres Little Z95.0 Presence of 11:15a Of Monalisa Wren cardiac pacemaker I49.5 Sick sinus syndrome Assessments Date Code Description Provider 05/03/2019 R01.1 Cardiac murmur, unspecified Catalina Manzano [...]
[2019-05-27 21:50] LABS: Albumin 3.8 g/dL (3.2-5.2); Albumin/Globulin Ratio 1.3 (1-3); BUN/Creatinine Ratio 29.2 (8-20); C Reactive Protein 1.01 mg/L (<8.01); Calcium 8.9 mg/dL (8.6-10.3); EGFR Non-African American 36.4 (>60); Potassium 4.4 mmol/L (3.5-5.0); Total Bilirubin 0.5 mg/dL (0.2-1.0); Total Protein 6.8 g/dL (6.4-8.9); Troponin I 0.01 ng/mL (<0.03)
--- NOTE | 2019-05-27 22:03 | ED ---
Hypertension - HPI Summary HPI Summary: Pt is an 88 y/o F presenting to the ED with a chief complaint of high blood pressure. Tonight, pt was experiencing lightheadedness accompanied by some nausea, which was only worsened by food. She vomited in the ambulance, and her BP was initially 214/105. She denies chest pain, headache, abd pain, or recent change in medication. She states she feels like shes not getting enough air. [employer] Analyst is Dr. Little. - History of Current Complaint Chief Complaint: EDHypertension Stated Complaint: HYPERTENSION/NAUSEA/VOMITING PER EMS Time Seen by Provider: 05/27/19 21:09 Hx Obtained From: Patient Onset/Duration: Started Hours Ago, Still Present Timing: Constant, Lasting Hours Reported Blood Pressure Prior To Arrival: 214/105 Aggravating Factor(s): Nothing Alleviating Factor(s): Nothing Associated Signs & Symptoms: SOB - Allergies/Home Medications Allergies/Adverse Reactions: Allergies Allergy/AdvReac Type Severity Reaction Status Date / Time brimonidine [From Combigan] Allergy Dizziness Verified 05/01/19 10:26 codeine Allergy GI Upset Verified 05/01/19 10:26 hydralazine Allergy Difficulty Verified 05/01/19 10:26 Breathing timolol [From Combigan] Allergy Dizziness Verified 05/01/19 10:26 Home Medications: Home Medications Bimatoprost 0.03 % BOTH EYES DAILY 05/27/19 [History Confirmed 05/27/19] PMH/Surg Hx/FS Hx/Imm Hx Previously Healthy: Yes Endocrine/Hematology History: Reports: Hx Diabetes - Type I, insulin dependent, diagnosed late , early 1999 Denies: Hx Anticoagulant Therapy, Hx Blood Disorders, Hx Blood Transfusions, Hx Sickle Cell Disease, Hx Unexplained Bleeding Cardiovascular History: Reports: Hx Coronary Artery Disease - listed in select visits, Hx Hypertension - controlled with medication, Other Cardiovascular Problems/Disorders - 2006 ?, bypass surgery Denies: Hx Cardiac Arrest, Hx Cardiomegaly, Hx Congenital Heart Disease, Hx Congestive Heart Failure, Hx Pacemaker/ICD, Hx Peripheral Vascular Disease, Hx Rheumatic Fever Comment Only: Hx Auto Implanted Cardiovert Defib - yy Respiratory History: Denies: Hx Chronic Obstructive Pulmonary Disease (COPD), Hx Lung Cancer, Hx Pleural Effusion, Hx Pulmonary Edema, Hx Pulmonary Embolism, Hx Sleep Apnea GI History: Reports: Hx Gastroesophageal Reflux Disease Denies: Hx Gastrointestinal Bleed, Hx Irritable Bowel, Hx Pyloric Stenosis, Hx Ulcer Comment Only: Other GI Disorders - Colon CA History: Reports: Other Problems/Disorders - 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 Denies: Hx Acute Renal Failure, Hx Benign Prostatic Hyperplasia, Hx Chronic Renal Failure, Hx Kidney Infection, Hx Kidney Stones Musculoskeletal History: Denies: Hx Arthritis, Hx Back Problems, Hx Congenital Bone Abnormalities, Hx Orthopedic Injury, Hx Osteoporosis Sensory History: Reports: Hx Cataracts - had surgery bi-lat, unsure of dates, Hx Legally Blind Denies: Hx Contacts or Glasses - legally blind, Hx Eye Injury, Hx Glaucoma, Hx Macular Degeneration, Hx Deafness, Hx Hearing Aid, Hx Hearing Problem Opthamlomology History: Reports: Hx Cataracts - had surgery bi-lat, unsure of dates, Hx Legally Blind Denies: Hx Contacts or Glasses - legally blind, Hx Eye Injury, Hx Glaucoma, Hx Macular Degeneration Neurological History: Reports: Hx Dementia - MILD, Hx Headaches Denies: Hx Spinal Cord Injury, Hx Transient Ischemic Attacks (TIA) Psychiatric History: Denies: Hx Anxiety, Hx Oppositional [place] Disorder, Hx Depression, Hx Panic Disorder, Hx Post Traumatic Stress Disorder, Hx Inpatient Treatment, Hx Bipolar Disorder - Cancer History Cancer Type, Location and Year: 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 bypass surgery 2006 approx. Hx Anesthesia Reactions: No - Immunization History Date of Influenza Vaccine: UTD Infectious Disease History: No Infectious Disease History: Denies: Hx Clostridium Difficile, Hx Hepatitis, Hx of Known/Suspected MRSA, Hx Shingles, Hx Tuberculosis, Hx Known/Suspected VRE, Hx Known/Suspected VRSA, Traveled Outside the [place] in Last 30 Days - Family History Known Family History: Positive: Cardiac Disease, Diabetes - Social History Alcohol Use: None Alcohol Amount: only a toast 1-2 x a year, occas. a beer in the summer Hx Substance Use: No Substance Use Type: Reports: None Hx Tobacco Use: No Smoking Status (MU): Never Smoked Tobacco Review of Systems - ROS Summary Review of Systems Summary: Home Medications Medication Instructions Recorded Confirmed Type Aspirin 81 mg CHEW TAB* 81 mg PO QAM 09/09/12 05/08/19 History Metoprolol Tartrate TAB* 25 mg PO BID 09/09/12 05/08/19 History [Lopressor TAB*] Simvastatin TAB(NF) [Zocor 20 MG 40 mg PO DAILY 09/09/12 05/08/19 History (NF)] Triamterene/HCTZ 37.5-25 MG* 1 cap PO QAM 09/09/12 05/08/19 History [Dyazide CAP*] Lisinopril TAB* [Prinivil TAB 10 10 mg PO QAM 12/07/16 05/08/19 History MG*] Potassium Chloride [Klor-Con 8] 8 meq PO DAILY 08/29/18 05/08/19 History Bimatoprost 0.01% OPHTH (NF) 1 drop BOTH EYES DAILY 05/01/19 05/08/19 History [Lumigan 0.01% OPHTH (NF)] Brimonid/Timolol 0.2/0.5%(NF) 1 drop BOTH EYES DAILY 05/01/19 05/08/19 History [Combigan 0.2/0.5% (NF)] Insulin NPH(*) 9 units SUBCUT QPM 05/01/19 05/08/19 History Insulin NPH(*) 10 units SUBCUT QAM 05/01/19 05/08/19 History Insulin REGULAR(TPN)* 5 units SUBCUT QPM 05/01/19 05/08/19 History Insulin REGULAR(TPN)* 9 units SUBCUT QAM 05/01/19 05/08/19 History Varicella-Zoster GE/AS01B/PF 50 mcg IM ONCE 05/01/19 05/08/19 History [Shingrix Vial Kit*] Positive: Other - HTN Negative: Chest Pain Positive: Shortness Of Breath Positive: Vomiting, Nausea. Negative: Abdominal Pain Negative: Headache All Other Systems Reviewed And Are Negative: Yes Physical Exam - Summary Physical Exam Summary: General: Obese elderly female, appears in mild discomfort. No acute distress. HEENT: Normocephalic, Atraumatic. Eyes: Conjuctiva normal, PERRL. Oropharynx: Clear, mucous membranes moist, (-) exudates. Neck: Soft, FROM, (-) lymphadenopathy, (-) thyromegaly, (-) JVD. Cardiovascular: Normal sinus rhythm, (-) murmur. Lungs: Clear to auscultation bilaterally (-) wheezes, (-) rales, (-) rhonchi. Abdomen: Soft, non-tender, non-distended, (-) organomegaly, normal bowel sounds. Back: (-) CVA tenderness Extremities: No edema. Skin: Warm, dry, (-) rash. Neuro: Alert and oriented x3, no focal deficits. Psychiatric: Mood normal, affect normal. Triage Information Reviewed: Yes Vital Signs On Initial Exam: Initial Vitals Temp Pulse Resp BP Pulse Ox 97.6 F 81 16 207/80 98 05/27/19 21:05 05/27/19 21:05 05/27/19 21:05 05/27/19 21:05 05/27/19 21:05 Vital Signs Reviewed: Yes Procedures - Sedation Patient Received Moderate/Deep Sedation with Procedure: No Diagnostics - Vital Signs Vital Signs Temp Pulse Resp BP Pulse Ox 05/27/19 21:05 97.6 F 81 16 207/80 98 - Laboratory Lab Results: Lab Results 05/27/19 05/27/19 05/27/19 Range/Units 21:20 21:20 21:20 WBC 8.8 (3.5-10.8) 10^3/uL RBC 4.56 (3.70-4.87) 10^6 /uL Hgb 13.7 (12.0-16.0) g/dL Hct 41 (35-47) % MCV 90 (80-97) fL MCH 30 (27-31) pg MCHC 34 (31-36) g/dL RDW 13 (10-15) % Plt Count 222 (150-450) 10^3/uL MPV 8.5 (7.4-10.4) fL Neut % (Auto) 80.6 % Lymph % (Auto) 12.1 % [place] % (Auto) 4.8 % Eos % (Auto) 1.7 % Baso % (Auto) 0.8 % Absolute Neuts (auto) 7.1 (1.5-7.7) 10^3/ul Absolute Lymphs (auto) 1.1 (1.0-4.8) 10^3/ul Absolute Monos (auto) 0.4 (0-0.8) 10^3/ul Absolute Eos (auto) 0.1 (0-0.6) 10^3/ul Absolute Basos (auto) 0.1 (0-0.2) 10^3/ul Absolute Nucleated RBC 0.0 10^3/ul Nucleated RBC % 0.0 INR (Anticoag Therapy) 0.92 (0.82-1.09) Sodium 135 (135-145) mmol/L Potassium 4.4 (3.5-5.0) mmol/L Chloride 101 (101-111) mmol/L Carbon Dioxide 29 (22-32) mmol/L Anion Gap 5 (2-11) mmol/L BUN 40 H (6-24) mg/dL Creatinine 1.37 H (0.51-0.95) mg/dL Est GFR ( Amer) 44.0 (>60) Est GFR (Non-Af Amer) 36.4 (>60) BUN/Creatinine Ratio 29.2 H (8-20) Glucose 142 H (70-100) mg/dL Lactic Acid (0.5-2.0) mmol/L Calcium 8.9 (8.6-10.3) mg/dL Total Bilirubin 0.50 (0.2-1.0) mg/dL AST 14 (13-39) U/L ALT 11 (7-52) U/L Alkaline Phosphatase 56 (34-104) U/L Troponin I 0.01 (<0.03) ng/mL C-Reactive Protein 1.01 (<8.01) mg/L Total Protein 6.8 (6.4-8.9) g/dL Albumin 3.8 (3.2-5.2) g/dL Globulin 3.0 (2-4) g/dL Albumin/Globulin Ratio 1.3 (1-3) Amylase 93 (29-103) U/L Lipase 79 (11.0-82.0) U/L 05/27/19 Range/Units 21:20 WBC (3.5-10.8) 10^3/uL RBC (3.70-4.87) 10^6 /uL Hgb (12.0-16.0) g/dL Hct (35-47) % MCV (80-97) fL MCH (27-31) pg MCHC (31-36) g/dL RDW (10-15) % Plt Count (150-450) 10^3/uL MPV (7.4-10.4) fL Neut % (Auto) % Lymph % (Auto) % [place] % (Auto) % Eos % (Auto) % Baso % (Auto) % Absolute Neuts (auto) (1.5-7.7) 10^3/ul Absolute Lymphs (auto) (1.0-4.8) 10^3/ul Absolute Monos (auto) (0-0.8) 10^3/ul Absolute Eos (auto) (0-0.6) 10^3/ul Absolute Basos (auto) (0-0.2) 10^3/ul Absolute Nucleated RBC 10^3/ul Nucleated RBC % INR (Anticoag Therapy) (0.82-1.09) Sodium (135-145) mmol/L Potassium (3.5-5.0) mmol/L Chloride (101-111) mmol/L Carbon Dioxide (22-32) mmol/L Anion Gap (2-11) mmol/L BUN (6-24) mg/dL Creatinine (0.51-0.95) mg/dL Est GFR ( Amer) (>60) Est GFR (Non-Af Amer) (>60) BUN/Creatinine Ratio (8-20) Glucose (70-100) mg/dL Lactic Acid 0.7 (0.5-2.0) mmol/L Calcium (8.6-10.3) mg/dL Total Bilirubin (0.2-1.0) mg/dL AST (13-39) U/L ALT (7-52) U/L Alkaline Phosphatase (34-104) U/L Troponin I (<0.03) ng/mL C-Reactive Protein (<8.01) mg/L Total Protein (6.4-8.9) g/dL Albumin (3.2-5.2) g/dL Globulin (2-4) g/dL Albumin/Globulin Ratio (1-3) Amylase (29-103) U/L Lipase (11.0-82.0) U/L Result Diagrams: 05/27/19 21:20 05/27/19 21:20 Lab Statement: Any lab studies that have been ordered have been reviewed, and results considered in the medical decision making process. - Radiology CXR Radiology Interpretation Completed By: ED Physician Summary of Radiographic Findings: No acute changes. No infiltrate. No pleural effusion. Pending official radiology report. - EKG 2116 Cardiac Rate: NL - paced 60bpm Summary of EKG Findings: EKG at 2116 reveals atrial paced rhythm at 60 BPM, no acute changes, no ischemic changes. This EKG was reviewed and interpreted by Dr. Cobos. Re-Evaluation - Re-Evaluation 1st re-eval Re-Evaluation Time: 22:46 Change: Improved Comment: I have discussed results with the patient and N/V is resolved. Discussed symptoms that warrant immediate return to ED. Hypertension Course/Dx - Course Course Of Treatment: 88 year old female with dizziness and n/v. no chest pain, cough, sob, or fevers. workup essentially negative although non diagnostic. patient improved significantly after iv fluids and zofran. discharged home with zofran. follow up with PCP. follow up sooner for any worsening symptoms. - Diagnoses Provider Diagnoses: Vomiting, Dizziness Discharge ED - Sign-Out/Discharge Documenting (check all that apply): Patient Departure - Discharge Plan Condition: Stable Disposition: HOME Prescriptions: Ondansetron ODT TAB* [Zofran 4 MG Odt TAB*] 4 mg PO Q8H PRN #12 tab.odt PRN Reason: Nausea Patient Education Materials: Acute Nausea and Vomiting (ED), Dizziness (ED) Referrals: Yoselyn Rosa MD [Primary Care Provider] - Additional Instructions: Please follow up with your primary care physician within three days. Please return to ED for any new or worsening symptoms. - Billing Disposition and Condition Condition: STABLE Disposition: Home - Attestation Statements Document Initiated by Scribe: Yes Documenting Scribe: Shelly Jurado Provider For Whom Travis is Documenting (Include Credential): Evon Cobos MD. Scribe Attestation: Shelly Mujica, scribed for Evon Cobos MD. on 05/28/19 at 0208. Scribe Documentation Reviewed: Yes Provider Attestation: The documentation as recorded by the Shelly swenson accurately reflects the service I personally performed and the decisions made by me, Evon Cobos MD. Status of Scribe Document: Viewed
[2019-05-28 00:02] VITALS: BP 167/67
== END 2019-05-27 23:55 | disposition home or self-care (01) ==
LOC: ED 21:01
DX: R11.2 Nausea with vomiting, unspecified (principal); R42 Dizziness and giddiness; I10 Essential (primary) hypertension; E10.9 Type 1 diabetes mellitus without complications; Z79.4 Long term (current) use of insulin; I25.10 Atherosclerotic heart disease of native coronary artery without angina pectoris; K21.9 Gastro-esophageal reflux disease without esophagitis; Z85.038 Personal history of other malignant neoplasm of large intestine; Z79.82 Long term (current) use of aspirin; R06.02 Shortness of breath
CPT/HCPCS: 36415; 71045; 80053; 82150; 83605; 83690; 84484; 85025; 85610; 86140; 93005; 96361; 96374; 96375; 99283; J1885; J2405

== ENCOUNTER 2020-02-22 09:06 | Observation (INO) ==
[2020-02-22] MEDS ORDERED: NS 0.9% 1000 ml BAG 1,000 ML IV ONE (09:51)
[2020-02-22 10:02] LABS: ABS Basophils 0.1 10^3/ul (0-0.2); ABS Eosinophils 0.3 10^3/ul (0-0.6); ABS Lymphocytes 1.4 10^3/ul (1.0-4.8); ABS Monocytes 0.7 10^3/ul (0-0.8); ABS Neutrophils 4.3 10^3/ul (1.5-7.7); Hematocrit 37 % (35-47); Hemoglobin 12.7 g/dL (12.0-16.0); Lymphocyte % 21.3 %; Mean Corpuscular HGB Conc 34 g/dL (31-36); Mean Corpuscular Hemoglobin 31 pg (27-31); Mean Corpuscular Volume 90 fL (80-97); Mean Platelet Volume 8.7 fL (7.4-10.4); Platelet Count 220 10^3/uL (150-450); Red Blood Count 4.13 10^6 /uL (3.70-4.87); Red Cell Distribution Width 14 % (10-15); White Blood Count 6.7 10^3/uL (3.5-10.8)
[2020-02-22 10:18] LABS: Albumin 3.8 g/dL (3.2-5.2); Albumin/Globulin Ratio 1.5 (1-3); BUN/Creatinine Ratio 23.3 (8-20); C Reactive Protein 1.18 mg/L (<8.01); Calcium 9.1 mg/dL (8.6-10.3); EGFR African American 33.8 (>60); EGFR Non-African American 27.9 (>60); Globulin 2.5 g/dL (2-4); Potassium 4.6 mmol/L (3.5-5.0); Total Bilirubin 0.6 mg/dL (0.2-1.0); Total Protein 6.3 g/dL (6.4-8.9)
[2020-02-22] MEDS ORDERED: Ondansetron 4 mg VIAL 2 MG/ML 2 ml VIAL IV ONE (10:51)
[2020-02-22] MEDS ORDERED: Polyethylene Glycol 3350 17 GM PACKET PO PRN (15:06)
[2020-02-22] MEDS ORDERED: Mineral Oil ENEMA 118 ML/BOTTLE BOTTLE PR ONE (15:06)
[2020-02-22] MEDS ORDERED: Magnesium Hydroxide LIQ 30 ML UDC PO PRN (15:06)
[2020-02-22] MEDS ORDERED: Senna TAB 8.6 mg TAB PO PRN (15:06)
[2020-02-22] MEDS ORDERED: Dextrose 50% Syringe 50 ml 25 GM/50 ML SYRINGE IV PUSH PRN (15:28)
[2020-02-22] MEDS: NS 0.9% 1000 ml BAG 1,000 ML IV SCH (16:44)
[2020-02-22] MEDS ORDERED: Ondansetron 4 mg VIAL 2 MG/ML 2 ml VIAL IV PRN (16:52)
[2020-02-22 18:25] LABS: Urine Appearance Clear; Urine Bilirubin Negative (Negative); Urine Blood Negative (Negative); Urine Color Yellow; Urine Glucose Negative (Negative); Urine Ketones Negative (Negative); Urine Nitrite Negative (Negative); Urine Protein Negative (Negative); Urine Urobilinogen Negative (Negative)
[2020-02-22] MEDS: Heparin 5000 UNITS/ML 1 mL VIAL SUBCUT SCH (20:37)
[2020-02-22] MEDS: Magnesium Hydroxide LIQ 30 ML UDC PO SCH (20:37)
[2020-02-23] MEDS: NS 0.9% 1000 ml BAG 1,000 ML IV SCH (05:19)
[2020-02-23] MEDS: Heparin 5000 UNITS/ML 1 mL VIAL SUBCUT SCH (05:21)
[2020-02-23 06:09] LABS: Calcium 8.4 mg/dL (8.6-10.3); Potassium 4.4 mmol/L (3.5-5.0)
[2020-02-23 06:14] LABS: BUN/Creatinine Ratio 22.1 (8-20); EGFR African American 44.3 (>60); EGFR Non-African American 36.6 (>60)
[2020-02-23] MEDS: Magnesium Hydroxide LIQ 30 ML UDC PO SCH ×2 (08:26→08:29)
[2020-02-23] MEDS ORDERED: Aspirin EC 81 mg TAB.EC (enteric coated) PO SCH (09:00)
[2020-02-23 11:09] VITALS: BP 125/38
[2020-02-23] MEDS ORDERED: Enoxaparin 30 MG/0.3 ML SYR SUBCUT SCH (21:00)
== END 2020-02-23 16:38 | disposition home or self-care (01) ==
LOC: MEDTELE 09:06 → ED 09:06 → MEDTELE 16:21
PROVIDERS: ADMIT Internal Medicine; ATTEND Internal Medicine